=== PATIENT | male | born 1965 | race Caucasian/White ===

== ENCOUNTER 2023-06-30 20:37 | Emergency (ER) | payer OTHER, SELFPAY ==
[2023-06-30 20:42] VITALS: BP 140/86
[2023-06-30 21:04] LABS: % Basophils 0.9 % (0-2); % Eosinophils 0.2 % (0-6); % Immature Granulocytes 0.4 % (0-0.5); % Lymphocytes 27.4 % (20.5-51.1); % Monocytes 11.6 % (1.7-9.3); % Neutrophils 59.5 % (42.2-75.2); Absolute Lymphocytes 1.3 10^3/uL (1.2-3.4); Absolute Monocytes 0.5 10^3/uL (0.1-0.6); Absolute Neutrophils 2.8 10^3/uL (1.4-6.5); Hematocrit 43.4 % (39.0-52.0); Hemoglobin 15.5 g/dL (13.0-18.0); Mean Corp Hgb Conc. 35.7 g/dL (33.0-37.0); Mean Corpuscular Hgb 29.5 pg (27.0-31.0); Mean Corpuscular Volume 82.7 fL (80.0-94.0); Mean Platelet Volume 9.3 fL (7.4-10.4); Nucleated Red Blood Cells % 0 % (-); Platelet Count 107 10^3/uL (130-400); Red Blood Cell Count 5.25 10^6/uL (4.70-6.10); Red Cell Dist. Width 14.6 % (11.5-14.5); White Blood Cell Count 4.7 10^3/uL (4.8-10.8)
[2023-06-30 21:17] LABS: ALT (SGPT) 45 U/L (0-50); AST (SGOT) 84 U/L (17-59); Albumin 4.4 g/dl (3.5-5.0); Alkaline Phosphatase 67 U/L (38-126); Blood Urea Nitrogen 14 mg/dl (9-20); Calcium 7.9 mg/dl (8.4-10.2); Carbon Dioxide 26 mmol/L (22-30); Chloride 100 mmol/L (98-107); Glucose 139 mg/dl (70-99); Lipase 474 U/L (23-300); Potassium 3.4 mmol/L (3.5-5.1); Sodium 139 mmol/L (135-145); Total Bilirubin 0.7 mg/dl (0.2-1.3); Total Protein 7.4 g/dl (6.3-8.2); eGFR > 60.00
[2023-06-30 22:20] LABS: Alcohol 402 mg/dl
[2023-06-30 23:00] VITALS: BP 136/71
[2023-06-30] MEDS: MULTIVITAMIN 1011 ML IV (23:28)
[2023-06-30] MEDS: MULTIVITAMIN 1011 MG IV (23:28)
[2023-06-30 23:58] LABS: Magnesium 1.9 mg/dl (1.6-2.3)
[2023-07-01] MEDS: ATIVAN 1 MG IV (00:39)
--- NOTE | 2023-07-01 01:42 | ED.GENMED ---
History of Present Illness
General
Chief Complaint: Alcohol Problem
Source: patient and family
Time Seen by Provider: 06/30/23 22:24
Travel History
Have you had any contact with someone who has COVID-19?: No
Do you have any symptoms of coronavirus? Fever > 100 degrees, chills, cough, shortness of breath, sore throat, loss of taste or smell, muscle aches, or headache?: No
History of Present Illness
History of Present Illness:
58-year-old male who presents concerned that he has been drinking a lot over the last week. Patient states that he has been drinking vodka. He had been sober for some time. Patient is having a difficult time describing his symptoms but keeps
saying 'my muscles need nutrients'. He is unable to actually qualify symptoms. He specifically denies pain or numbness. No tingling. No motor weakness. No vomiting. Last drink was prior to arrival.
Past History
Past History
ED Past Medical History: Other (Hypothyroidism)
ED Past Surgical History: Other (Ileostomy due to infection located by sepsis)
Social History
Tobacco: Non-smoker
Alcohol: Daily
Drug: None
Living: alone
Phy Exam
Physical Exam
Physical Exam:
CONSTITUTIONAL Patient alert and oriented to person, place and time. Well-appearing. Vital signs reviewed.
HEAD atraumatic, normocephalic.
EYES eyelids normal to inspection, Pupils equally round and reactive to light, Extraocular muscles intact, Conjunctiva normal, Sclera normal.
NECK normal range of motion, Trachea midline, no jugular venous distention.
RESPIRATORY CHEST No respiratory distress noted, Chest expansion equal, Bilateral breath sounds clear.
CARDIOVASCULAR regular and tachycardic, Heart sounds normal.
ABDOMEN abdomen nontender, Bowel sounds normal. No distention.
BACK normal inspection, no obvious deformities
UPPER EXTREMITY range of motion normal, Motor strength normal, no cyanosis, no edema.
LOWER EXTREMITY range of motion normal, Motor strength normal, no cyanosis, no edema.
NEURO Speech normal, No focal motor deficits, Angelic coma scale 15, Memory normal, Cranial Nerves intact to screening exam.
SKIN skin warm, dry, and normal in color.
PSYCHIATRIC patient oriented to person place and time, anxious affect.
Scores
Withdrawal Assessment of Alcohol
Withdrawal Assessment Completed?: Not applicable
Course
Orders/Labs/Results
Orders:
Orders
06/30/23 20:47
Electrocardiogram (*1) Urgent
Reason for Study: Abdominal Pain
06/30/23 20:48
EKG- Treatment ONCE
06/30/23 20:52
Alcohol Urgent
CMP [Comprehensive Metabolic Panel] Urgent
Complete Blood Count/With Diff Urgent
Lipase Urgent
Magnesium Urgent
Comment: ADD ON
06/30/23 21:30
Add On- LAB Urgent
Tests Added?: alcohol
06/30/23 23:00
0.9% Sodium Chloride 1000 ml [Nss] 1,000 ml Mvi, Adult [Multivitamin] 10 ml Thiamine Injection 100 mg IV 200 mls/hr
06/30/23 23:05
Add On- LAB Stat
Tests Added?: Mg
07/01/23 00:34
Lorazepam [Ativan] 1 mg IV NOW STA
07/01/23 01:41
Potassium Chloride 10% Elixir [KCl Elixir] 40 meq PO NOW STA
07/01/23 02:05
Lorazepam [Ativan] 1 mg PO NOW STA
Abnormal Lab Results
06/30/23
20:52
WBC 4.7 L 10^3/uL
(4.8-10.8)
RDW 14.6 H %
(11.5-14.5)
Plt Count 107 L 10^3/uL
(130-400)
Monocytes % 11.6 H %
(1.7-9.3)
Potassium 3.4 L mmol/L
(3.5-5.1)
Glucose 139 H mg/dl
(70-99)
Calcium 7.9 L mg/dl
(8.4-10.2)
AST 84 H U/L
(17-59)
Lipase 474 H U/L
(23-300)
Alcohol, Quantitative 402 H* mg/dl
06/30/23 20:52
06/30/23 20:52
Vital Signs
Initial and Last Documented VS:
Initial Vital Signs
Temp Pulse Resp BP Pulse Ox
98.9 F 104 22 140/86 93
06/30/23 20:42 06/30/23 20:42 06/30/23 20:42 06/30/23 20:42 06/30/23 20:42
Last Documented Vital Signs
Temp Pulse Resp BP Pulse Ox
98.9 F 100 16 136/71 94
07/01/23 00:18 07/01/23 03:00 07/01/23 03:00 06/30/23 23:00 07/01/23 00:15
MDM/Problems Addressed
MDM/Problems Addressed:
Chronic alcoholism, acute alcohol intoxication, hypokalemia
*Pulse Oximetry
Patient hypoxic: no
*Cold Saw Operator Interpretation
Rate: normal
Interpretation: normal
Rhythm: sinus
*Critical Care Note
Total Time (30-74mins, 75-104mins- exclusive of procedures): Not Applicable
Data Reviewed
Source: patient and family
Further Testing Considered But Not Given:
Considered imaging of the abdomen but abdomen soft and benign. Do not suspect acute pancreatitis
Patient Management
Escalation/DeEscalation of care consider admission/obs:
Patient seen by [facility]. pt declines any offerings by [facility]. Hemodynamically stable. Clearly not in withdrawal. Okay for discharge
ED Attending Note
-
Portions of this chart may have been created with voice recognition software.� Occasional wrong word or��sound alike� substitutions may have occurred due to the inherent limitations of voice recognition software.
Discharge Plan
Departure
Patient Disposition: Home (Routine Discharge)
Date of Disposition: 07/01/23
Time of Disposition: 01:53
Patient with high blood pressure during this ER visit?: No
Discharge Problem:
Acute alcohol intoxication, Chronic alcohol abuse, Acute hypokalemia
Instructions: Alcohol Use Disorder (DC), BLOOD PRESSURE
Prescriptions:
New
lorazepam 1 mg tablet
1 mg PO TID PRN (Reason: alcohol withdrawal) Qty: 12 0RF
No Action
levothyroxine 100 mcg Tablet
100 mcg PO DAILY
Activity Restrictions/Additional Instructions:
Please see your doctor in the next 2 to 3 days. Please follow-up with resources given to you by Uziel durbin. Return admitted for intractable vomiting, tremors, worsening symptoms or any other concerns. Please stick to a regular diet and drink plenty
of water for hydration
Interventions
Interventions:
*Risk Screen - Suicide Last Done: 06/30/23 20:42
*General Assessment Last Done: 06/30/23 22:46
*Neglect/Abuse Screening Last Done: 06/30/23 20:42
ED- Fall Risk Assessment Last Done: 06/30/23 22:45
*ED COVID-19 Vaccine History Last Done: 06/30/23 22:52
*Nursing Disposition Last Done: 07/01/23 03:39
ED- Neurological Assessment Last Done: 06/30/23 22:45
ED-Psychological Assessment Last Done: 06/30/23 22:45
Discharge Date and Time
Discharge Date/Time: 07/01/23 03:40
[2023-07-01] MEDS: KCL ELIXIR 40 MEQ PO (01:55)
[2023-07-01] MEDS: ATIVAN 1 MG PO (02:11)
== END 2023-07-01 03:40 | disposition home or self-care (01) ==
LOC: EMR 20:37
PROVIDERS: Emergency Medicine; EMERGENCY PHYSICIAN Emergency Medicine
DX: F10.129 Alcohol abuse with intoxication, unspecified (principal); E87.6 Hypokalemia
CPT/HCPCS: 99284; 96365; 96366 ×3; 96375; 80053; 82077; 83690; 83735; 85025; 93005

== ENCOUNTER 2024-02-29 18:28 | Emergency (ER) | payer OTHER, SELFPAY ==
[2024-02-29 18:30] VITALS: BMI 33.1
[2024-02-29 18:36] VITALS: BP 140/92
[2024-02-29 18:38] VITALS: BP 140/92
[2024-02-29 18:41] LABS: Glucose - Point of Care 139 mg/dl (70-99)
[2024-02-29 18:49] LABS: % Basophils 0.9 % (0-2); % Eosinophils 1.8 % (0-6); % Immature Granulocytes 0.3 % (0-0.5); % Lymphocytes 30.7 % (20.5-51.1); % Monocytes 7.4 % (1.7-9.3); % Neutrophils 58.9 % (42.2-75.2); Absolute Basophils 0.1 10^3/uL (0-0.2); Absolute Eosinophils 0.1 10^3/uL (0-0.7); Absolute Monocytes 0.5 10^3/uL (0.1-0.6); Absolute Neutrophils 3.9 10^3/uL (1.4-6.5); Hematocrit 44.7 % (39.0-52.0); Hemoglobin 15.6 g/dL (13.0-18.0); Mean Corp Hgb Conc. 34.9 g/dL (33.0-37.0); Mean Corpuscular Hgb 28.7 pg (27.0-31.0); Mean Corpuscular Volume 82.2 fL (80.0-94.0); Nucleated Red Blood Cells % 0 % (-); Platelet Count 233 10^3/uL (130-400); Red Blood Cell Count 5.44 10^6/uL (4.70-6.10); Red Cell Dist. Width 14.9 % (11.5-14.5); White Blood Cell Count 6.7 10^3/uL (4.8-10.8)
[2024-02-29 19:03] LABS: ALT (SGPT) 38 U/L (0-50); AST (SGOT) 57 U/L (17-59); Albumin 4.8 g/dl (3.5-5.0); Alkaline Phosphatase 55 U/L (38-126); Blood Urea Nitrogen 16 mg/dl (9-20); Calcium 9.6 mg/dl (8.4-10.2); Carbon Dioxide 20 mmol/L (22-30); Chloride 108 mmol/L (98-107); Estimated Creatinine Clearance 86 ml/min; Glucose 149 mg/dl (70-99); Potassium 3.9 mmol/L (3.5-5.1); Sodium 147 mmol/L (135-145); Total Bilirubin 0.4 mg/dl (0.2-1.3); Total Protein 7.9 g/dl (6.3-8.2); eGFR > 60.00
[2024-02-29 19:12] LABS: Alcohol 356 mg/dl
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
[2024-02-29 19:40] VITALS: BP 131/84
[2024-02-29] MEDS: NSS 500 IV (20:56)
== END 2024-02-29 23:53 | disposition home or self-care (01) ==
LOC: EMR 18:28
PROVIDERS: Emergency Medicine; EMERGENCY PHYSICIAN Emergency Medicine
DX: F10.129 Alcohol abuse with intoxication, unspecified (principal); Y90.8 Blood alcohol level of 240 mg/100 ml or more; R10.9 Unspecified abdominal pain; V89.2XXA Person injured in unspecified motor-vehicle accident, traffic, initial encounter; E03.9 Hypothyroidism, unspecified; Z93.2 Ileostomy status
CPT/HCPCS: 96360; 99285; 70450; 72072; 72125; 74177; 80053; 82077; 82962; 85025; 93005; Q9967

== ENCOUNTER 2024-03-09 22:18 | Emergency (ER) | payer OTHER, SELFPAY ==
[2024-03-09 22:23] VITALS: BMI 32.4
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
[2024-03-09 22:37] VITALS: BP 145/91
[2024-03-09 22:50] LABS: % Basophils 0.4 % (0-2); % Eosinophils 2.2 % (0-6); % Immature Granulocytes 0.4 % (0-0.5); % Lymphocytes 29.1 % (20.5-51.1); % Neutrophils 59.9 % (42.2-75.2); Absolute Eosinophils 0.1 10^3/uL (0-0.7); Absolute Lymphocytes 1.5 10^3/uL (1.2-3.4); Absolute Monocytes 0.4 10^3/uL (0.1-0.6); Hematocrit 39.7 % (39.0-52.0); Hemoglobin 14.1 g/dL (13.0-18.0); Mean Corp Hgb Conc. 35.5 g/dL (33.0-37.0); Mean Corpuscular Hgb 28.8 pg (27.0-31.0); Mean Corpuscular Volume 81.2 fL (80.0-94.0); Mean Platelet Volume 10.7 fL (7.4-10.4); Nucleated Red Blood Cells % 0 % (-); Platelet Count 119 10^3/uL (130-400); Red Blood Cell Count 4.89 10^6/uL (4.70-6.10); Red Cell Dist. Width 15.4 % (11.5-14.5)
[2024-03-09 23:00] LABS: ALT (SGPT) 83 U/L (0-50); AST (SGOT) 138 U/L (17-59); Albumin 4.5 g/dl (3.5-5.0); Alkaline Phosphatase 63 U/L (38-126); Blood Urea Nitrogen 9 mg/dl (9-20); Calcium 9.8 mg/dl (8.4-10.2); Carbon Dioxide 23 mmol/L (22-30); Chloride 107 mmol/L (98-107); Estimated Creatinine Clearance 95 ml/min; Glucose 93 mg/dl (70-99); Potassium 3.9 mmol/L (3.5-5.1); Sodium 147 mmol/L (135-145); Total Bilirubin 0.4 mg/dl (0.2-1.3); Total Protein 7.4 g/dl (6.3-8.2); eGFR > 60.00
[2024-03-09 23:01] LABS: Ammonia 11 umol/L (9-30)
[2024-03-09 23:04] VITALS: BP 139/80
[2024-03-09 23:10] LABS: Alcohol 393 mg/dl
[2024-03-10] VITALS: BP 141/84
[2024-03-10 00:17] VITALS: BP 128/83
[2024-03-10 01:17] VITALS: BP 132/91
[2024-03-10 01:54] VITALS: BP 124/82
[2024-03-10 02:00] VITALS: BP 122/88
[2024-03-10 04:00] VITALS: BP 111/73
== END 2024-03-10 06:36 | disposition home or self-care (01) ==
LOC: EMR 22:18
PROVIDERS: EMERGENCY PHYSICIAN Student in an Organized Health Care Education/Training Program; FAMILY PHYSICIAN Student in an Organized Health Care Education/Training Program
DX: F10.129 Alcohol abuse with intoxication, unspecified (principal); Y90.8 Blood alcohol level of 240 mg/100 ml or more; E03.9 Hypothyroidism, unspecified; K74.60 Unspecified cirrhosis of liver
CPT/HCPCS: 99284; 70450; 80053; 82077; 82140; 85025

== ENCOUNTER 2024-03-24 23:05 | Inpatient (IN) | payer OTHER, SELFPAY ==
[2024-03-24 18:38] VITALS: BP 133/67
[2024-03-24] MEDS: ATIVAN 2 MG IV ×2 (18:47→22:21)
[2024-03-24] MEDS: NSS 1000 IV (18:48)
[2024-03-24 19:00] VITALS: BP 117/82
[2024-03-24 19:01] LABS: % Basophils 0.5 % (0-2); % Immature Granulocytes 0.5 % (0-0.5); % Lymphocytes 11.3 % (20.5-51.1); % Monocytes 10.1 % (1.7-9.3); % Neutrophils 77.6 % (42.2-75.2); Absolute Lymphocytes 0.5 10^3/uL (1.2-3.4); Absolute Monocytes 0.4 10^3/uL (0.1-0.6); Absolute Neutrophils 3.1 10^3/uL (1.4-6.5); Hematocrit 26.9 % (39.0-52.0); Hemoglobin 9.5 g/dL (13.0-18.0); Mean Corp Hgb Conc. 35.3 g/dL (33.0-37.0); Mean Corpuscular Hgb 29.3 pg (27.0-31.0); Mean Platelet Volume 9.6 fL (7.4-10.4); Nucleated Red Blood Cells % 0 % (-); Platelet Count 134 10^3/uL (130-400); Red Blood Cell Count 3.24 10^6/uL (4.70-6.10); Red Cell Dist. Width 16.6 % (11.5-14.5)
--- NOTE | 2024-03-24 19:10 | ED.GENMED ---
History of Present Illness
General
Chief Complaint: Alcohol Problem
Source: patient
Time Seen by Provider: 03/24/24 18:49
History of Present Illness
History of Present Illness:
58-year-old male presents to the emergency room stating he needs alcohol rehab. Patient has a history of alcohol use disorder. He had been sober up until about 2 weeks ago when he went on a binge. He is drinking about 2 to 3 pints of vodka a day.
He realized he is needed to stop and has not had a drink for the past 24 hours or so. He was quite tremulous in triage and was given 2 mg of Ativan with some improvement. He feels mildly tremulous now. Patient last went to rehab about a year ago
in [place]. He does not take any prescription medications right now other than levothyroxine.
Past History
Past History
ED Past Medical History: Hypothyroidism and Other (Bowel obstrucation, Cirrhosis of the liver, Alcohol abuse)
ED Past Surgical History: Other (Ileostomy due to infection located by sepsis, Hernia X 2)
Social History
Tobacco: Non-smoker
Alcohol: Daily
Drug: None
Personal:
Living: alone
Phy Exam
Physical Exam
Physical Exam:
General: Awake, Alert, Oriented X3. Mildly tremulous
Vitals: Tachycardia
Head: Atraumatic
Eyes: Pupils equal, EOMI
Throat: Airway intact, no exudates
Neck: Trachea midline
Lungs: Clear and equal b/l
Heart: Regular rate, no murmurs
Abd: Soft, ileostomy with stool, nontender, No pulsatile mass
Neuro: Nonfocal
Skin: Warm, dry, no rash
Extremities: pulses equal b/l, no edema
Scores
Withdrawal Assessment of Alcohol
Withdrawal Assessment Completed?: Yes
Nausea and Vomiting: No nausea and no vomiting
Tactile Disturbances: None
Tremor: Moderate, with patient's arms extended
Auditory Disturbances: Not present
Paroxysmal Sweats: No sweat visible
Visual Disturbances: Not present
Anxiety: Mild anxiety
Headache, Fullness in Head: Not present
Agitation: Moderately fidgety and restless
Orientation and clouding of sensorium: Oriented and can do serial additions
Total CIWA Score: 9
Alcohol Withdrawal Medication Recommendation: Equal to MSAS Score 5-7. Lorazepam 1mg IV or PO NOW & re-assess q2hrs
Course
Orders/Labs/Results
Orders:
Orders
03/24/24 18:37
ECG [Electrocardiogram (*1)] Urgent
Reason for Study: Other
Other Reason for Exam: withdrawl
EKG- Treatment ONCE
03/24/24 18:45
Lorazepam [Ativan] 2 mg .ROUTE .STK-MED ONE
03/24/24 18:47
Lorazepam [Ativan] 2 mg IV NOW STA
03/24/24 18:48
0.9% Sodium Chloride 1000 ml [Nss] 1,000 ml IV BOLUS
03/24/24 18:50
Complete Blood Count/With Diff Urgent
03/24/24 19:09
Lorazepam [Ativan] 1 mg IV NOW STA
03/24/24 19:10
Alcohol Urgent
Comprehensive Metabolic Panel Urgent
03/24/24 20:09
Potassium Chloride [KCl] 40 meq PO NOW STA
03/24/24 22:06
Lorazepam [Ativan] 2 mg IV NOW STA
03/24/24 22:19
Hemetest Stools As Directed
03/24/24 22:44
INR [Prothrombin Time] Routine
03/24/24 22:47
Admit/Transfer Patient As Directed
Co-Sign Provider:
Level of Care: Inpatient admission
Assign to:: Telemetry
Physician / Group: Roberth Mancini
Diagnosis: ETOH withdraw
Reason for Telemetry: Other
Other Reason for Telemetry: ETOH withdraw
Date to Stop Telemetry: 03/26/24
Time to Stop Telemetry: 11:00
Reason for Hospitalization: ETOH withdraw
Expected length of stay greater than two midnights?: Yes
ELOS- Estimated Length of Stay in days: 3
I certify the patient meets the requirements for IP care: Yes
PRN Pain Medication Management As Directed
May give lesser potent ordered pain med per pt: Yes
preference::
Protocol:: Medication orders for pain may be administered in a
manner that supports deferring to patient preference
when the pt is:
- Requesting an ordered lesser potent pain medication.
Least to most potent pain medications are defined
as: acetaminophen < NSAID < tramadol < opioids
(morphine, oxycodone, hydromorphone).
- Requesting a lesser dose of the same medication IF
ORDERED.
- Requesting a less intrusive route of administration
if both routes are prescribed by the provider (PO <
IV).
03/24/24 22:48
Code Status As Directed
Resuscitation Status: Full Code
03/25/24 00:23
0.9% Sodium Chloride [Nss (Preservative Free)] See Protocol IV PRN PRN
FOLic ACID [Folvite] 1 mg 0.9% Sodium Chloride 50 ml [Nss] 50 ml IV DAILYPRN
Lorazepam [Ativan] 1 mg IV Q1HPRN PRN
Lorazepam [Ativan] 1 mg PO Q2HPRN PRN
Lorazepam [Ativan] 2 mg IV Q1HPRN PRN
03/25/24 00:23
Case Management Consult Once
Case Management Consult: Other
Comment: Substance abuse counseling
Consult Notification Routine
Specialty to Notify: Psychiatry
Date consulting provider notified: 03/25/24
Time consulting provider notified: 06:57
Notified:: Provider
DIETARY CONSULT Routine
Reason for Consult: Nutrition support, possible refeeding guidelines
Activity As Directed
Activity Level: Out of Bed- Ad Christiane
MSAS SCORE As Directed
MSAS Score 0-4: Repeat MSAS every 2 hours until 0-4 for three consecutive assessments, then every 4 hours x 48
hours.
MSAS Score 5-7: For MILD withdrawl symptoms. Repeat MSAS and RASS every 2 hours
MSAS Score 8-11: For MODERATE withdrawal symptoms. Repeat MSAS and RASS every 1 hour. Consider ICU or IMU
level of care.
MSAS Score > 11: For SEVERE withdrawal symptoms. Repeat MSAS and RASS every 1 hour. Notify provider, consider
ICU level of care.
MSAS Additional Instructions: If no improvement or no decrease in score from severe to moderate within 12
hours, consult psychiatry
MSAS Notify Provider: Notify provider if patient requires more than 10 mg of Lorazepam in eight hour period.
Sequential Compression Device [Pneumatic Compression Sleeves] As Directed
Type: Knee high
Vital Signs As Directed
Frequency: Post-operative guidelines
DX Deep Vein Thrombosis Video Routine
03/25/24 02:57
Alcohol Urgent
B-Hydroxybutyrate Urgent
GGTP Urgent
Magnesium Urgent
PTT Urgent
Phosphorus Urgent
03/25/24 05:00
Urinalysis Routine
Date Specimen was Collected: 03/25/24
Time Specimen was Collected: 04:58
Urine Drug Abuse Screen Routine
Date Specimen was Collected: 03/25/24
Time Specimen was Collected: 04:58
03/25/24 Breakfast
Regular
At Your Request: Full Participation
Does patient need a safe tray?: No
03/25/24 06:46
Complete Blood Count/With Diff IN AM
Comprehensive Metabolic Panel IN AM
TSH IN AM
03/25/24 08:00
FOLic ACID [Folvite] 1 mg PO DAILY
Pantoprazole [Protonix] 40 mg PO DAILY
Thiamine Injection 200 mg IV Q12
03/26/24 06:00
Complete Blood Count/With Diff IN AM
Comprehensive Metabolic Panel IN AM
03/26/24 11:00
DC Protocol for Telemetry ONCE
03/27/24 06:00
Complete Blood Count/With Diff IN AM
Comprehensive Metabolic Panel IN AM
03/28/24 08:00
Thiamine HCl [Vitamin B1] 100 mg PO BID
Abnormal Lab Results
03/24/24 03/24/24
18:50 19:10
WBC 4.0 L 10^3/uL
(4.8-10.8)
RBC 3.24 L 10^6/uL
(4.70-6.10)
Hgb 9.5 L g/dL
(13.0-18.0)
Hct 26.9 L %
(39.0-52.0)
RDW 16.6 H %
(11.5-14.5)
Absolute Lymphs (auto) 0.5 L 10^3/uL
(1.2-3.4)
Neutrophils % 77.6 H %
(42.2-75.2)
Lymphocytes % 11.3 L %
(20.5-51.1)
Monocytes % 10.1 H %
(1.7-9.3)
Potassium 3.3 L mmol/L
(3.5-5.1)
Chloride 97 L mmol/L
(98-107)
Carbon Dioxide 19 L mmol/L
(22-30)
Glucose 111 H mg/dl
(70-99)
AST 80 H U/L
(17-59)
ALT 52 H U/L
(0-50)
03/24/24 18:50
03/24/24 19:10
Vital Signs
Initial and Last Documented VS:
Initial Vital Signs
Temp Pulse Resp BP Pulse Ox
98.2 F 114 20 133/67 94
03/24/24 18:38 03/24/24 18:38 03/24/24 18:38 03/24/24 18:38 03/24/24 18:38
Last Documented Vital Signs
Temp Pulse Resp BP Pulse Ox
98.4 F 109 20 143/86 98
03/25/24 11:53 03/25/24 11:53 03/25/24 11:53 03/25/24 11:53 03/25/24 11:53
MDM/Problems Addressed
Differential Diagnosis Includes:
Alcohol use disorder, alcohol withdrawal, DTs
MDM/Problems Addressed:
Patient presents requesting help with alcohol addiction. Labs reveal mild normocytic anemia, normal platelet count, mild hypokalemia, mild elevation of LFTs. Patient also has irritation of the skin under his ileostomy likely from neglect while
intoxicated. Patient was quite tremulous on arrival. He improved with benzos but his tremor was quite significant when attempting to do things like unbutton his pants and walk to the bathroom. I do not believe he is safe for discharge and the
patient is refusing inpatient rehab. I have no choice but to hospitalize him to get him through the next couple days of his withdrawal.
*Pulse Oximetry
Patient hypoxic: no
*Broom Man Interpretation
Rate: tachycardiac
Interpretation: abnormal
Heart Rate: 110
Rhythm: sinus tachycardia
*Critical Care Note
Total Time (30-74mins, 75-104mins- exclusive of procedures): Not Applicable
ED Attending Note
-
Portions of this chart may have been created with voice recognition software.� Occasional wrong word or��sound alike� substitutions may have occurred due to the inherent limitations of voice recognition software.
Discharge Plan
Departure
Patient Disposition: Admit
Date of Disposition: 03/24/24
Time of Disposition: 22:53
Presentation/result/management discussed w/ accepting MD/DO: Hospitalist
Condition: Fair
Discharge Problem:
Alcohol withdrawal
Interventions
Interventions:
*Risk Screen - Suicide Last Done: 03/25/24 00:27
*General Assessment Last Done: 03/24/24 18:38
*Neglect/Abuse Screening Last Done: 03/24/24 23:25
ED- Fall Risk Assessment Last Done: 03/24/24 19:05
*ED COVID-19 Vaccine History Last Done: 03/25/24 00:27
*Nursing Disposition Last Done: 03/25/24 00:07
ED- Neurological Assessment Last Done: 03/24/24 19:05
ED-Psychological Assessment Last Done: 03/24/24 19:05
Discharge Date and Time
Discharge Date/Time: 03/25/24 00:07
[2024-03-24] MEDS: ATIVAN 1 MG IV (19:30)
[2024-03-24 19:35] LABS: ALT (SGPT) 52 U/L (0-50); AST (SGOT) 80 U/L (17-59); Albumin 4.3 g/dl (3.5-5.0); Alkaline Phosphatase 90 U/L (38-126); Blood Urea Nitrogen 15 mg/dl (9-20); Calcium 8.4 mg/dl (8.4-10.2); Carbon Dioxide 19 mmol/L (22-30); Chloride 97 mmol/L (98-107); Glucose 111 mg/dl (70-99); Potassium 3.3 mmol/L (3.5-5.1); Sodium 135 mmol/L (135-145); Total Bilirubin 0.9 mg/dl (0.2-1.3); Total Protein 6.7 g/dl (6.3-8.2); eGFR > 60.00
[2024-03-24 20:00] VITALS: BP 142/83
[2024-03-24 20:14] LABS: Alcohol 18 mg/dl
[2024-03-24] MEDS: KCL 40 MEQ PO (20:59)
[2024-03-24 21:00] VITALS: BP 120/64
--- NOTE | 2024-03-24 22:18 | HPS.HSE ---
Family Physician
-
Family Physician: Shay Strauss MD, Resident
Chief Complaint
-
ETOH withdraw symptoms
History of Present Illness
Patient is a 58-year-old male with past medical history significant for Fox's thyroiditis, cirrhosis of liver, alcohol dependency, esophageal varices with bleeding, sleep apnea and anxiety disorder who presented to [place] ED for evaluation
and treatment for alcohol withdraw. Patient reports recent outpatient rehab at [place] following a 5 day detox approximately 4 weeks ago. He reports last drink was approximately 48-hours ago. Patient with tremors at assessment s/p 2mg Ativan in
ED. Patient states he is currently only taking his prescribed levothyroxine. Patient denies any other withdraw symptoms besides tremors at this time. No hallucinations. No seizures. Patient states he has not had seizures with previous withdraw.
Medical History
Past Medical History
Past Medical History: Reports Other
Additional Past Medical History:
Fox's thyroiditis
cirrhosis of liver
alcohol dependency
esophageal varices with bleeding
sleep apnea
anxiety disorder
Hx bowel obstruction
Past Surgical History: Reports Other
Additional Past Surgical History:
ileostomy
hernia x2
Social History
Tobacco: Non-smoker
Alcohol: Daily (2-3 pints vadka per day)
Drug: None
Employment: Employed (chiropractor)
Family History
Family History: Not pertinent
Allergies / Home Medications
Allergies reflects when Allergies were last updated in [facility].
Home Medications with original date entered in [facility]
Allergy/Medication List:
Allergies
Allergy/AdvReac Type Severity Reaction Status Date / Time
No Known Allergies Allergy Verified 03/24/24 18:38
Home Medications
levothyroxine 100 mcg tablet 100 mcg PO DAILY 07/01/23
cyclobenzaprine 10 mg tablet 10 mg PO HS 02/29/24
hydroxyzine HCl 50 mg tablet 50 mg PO TIDPRN PRN anixety 02/29/24
lorazepam 1 mg tablet 0.5 mg PO HSPRN PRN anxiety 02/29/24
semaglutide 0.25 mg or 0.5 mg (2 mg/3 mL) subcutaneous pen injector (Ozempic) 0.25 mg SC CASIANO 02/29/24
Review of Systems
-
History Source: Patient
Constitutional: Reports No Symptoms
EENT: Reports No Symptoms
Respiratory: Reports No Symptoms
Cardiac: Reports No Symptoms
Abdomen/GI: Reports No Symptoms
: Reports No Symptoms
Musculoskeletal: Reports No Symptoms
Skin: Reports Other (excoriation around ileostomy)
Neurological: Reports Other (tremors)
Endocrine: Reports No Symptoms
Hematologic/Lymphatic: Reports No Symptoms
Psych: Reports Anxiety
Physical Exam
Vital Signs
Vital Signs
Temp Pulse Resp BP Pulse Ox
98.2 F 105 20 120/64 99
03/24/24 18:38 03/24/24 19:00 03/24/24 18:38 03/24/24 21:00 03/24/24 19:31
Physical Exam
General: Well Developed, Well Nourished, No Apparent Distress and Conversant
HEENT: NormoCephalic, Moist mucous membranes, Atraumatic, [place] Conjunctivae, Nose Appears Normal and Ears Appear Normal
Respiratory: Clear and Non Labored Respirations
Cardiac: S1/S2, Regular Rhythm and Tachycardia; No Murmur, Rub or Gallop
Breast: Deferred by me
GI: Soft, Non Tender, Non Distended, Normal Bowel Sounds and Ostomy (excoriation around ileostomy); No Organomegaly
Rectal: Deferred by Provider
Genito-urinary: Deferred by me
Musculoskeletal: No Clubbing, No Cyanosis and No Edema
Skin: Warm, Rash (excoriation around ileostomy) and IV/Catheter Site
Neuro: Awake, Alert and AO x 3
Psych: Calm
Laboratory Results
-
03/24/24 18:50
03/24/24 19:10
Laboratory Results
Total Bilirubin 0.9 mg/dl (0.2-1.3) 03/24/24 19:10
AST 80 U/L (17-59) H 03/24/24 19:10
ALT 52 U/L (0-50) H 03/24/24 19:10
Alkaline Phosphatase 90 U/L (38-126) 03/24/24 19:10
Data Reviewed
-
Lab Data: Labs Reviewed by me (ETOH 18, Hgb 9.5, Hct 26.9, K+ 3.3, AST 80, ALT 52)
Impression/Plan
-
IMPRESSION/PLAN:
#Alcohol withdraw
#alcohol dependency
#cirrhosis of liver
#hx esophageal varices with bleeding
ETOH level 18, last drink reported
drinking 1-3 pints vodka per day for at least 2 weeks
Previous rehab for ETOH
- Admit to Telemetry
- MSAS protocol with lorazepam
- Psych consult
- trend LFTs
- INR pending
- cessation of ETOH
#Anemia
Hbg 9.5, 2 weeks ago was 14.1
- Hematest stool
- PO PPI daily
- INR pending
#Hx bowel obstruction with ileostomy
ileostomy with excoriation
- wound care consult
#Fox's thyroiditis
#hypothyroidism
- continue levothyroxine
#anxiety disorder
- continue gabapentin
- hold hydroxyzine and lorazepam
Code Status: Full Code
DVT Prophylaxis: SCDs
--- NOTE | 2024-03-24 22:29 | W.PN.UPDATE ---
Addendum entered and electronically signed by Roberth Mancini MD 03/24/24 22:55:
Normocytic interval new anemia ( Hgb dropped from 14.1 to 9.5 over 2 weeks )
Denied change in color of the stool.
HX Cirrhosis
Nl Platelet
- wait INR
- check stool for HoB
- PO PPI daily
Original Note:
Update Note
Progress Note Update
This note serves as an addendum to the H&P by waste specialist Carina Caldwell
HPI:
58M HX ETOH use disorder, seen at ER
- stating he needs alcohol rehab.
- had been sober up until about 2 weeks
- Recently at [facility] detox for 5 days 4weeks ago
- then binge ETOH use 2 to 3 pints of vodka a day.
- realized he is needed to stop and has not had a drink for the past 24 hours or so.
- quite tremulous in triage and was given 2 mg of Ativan with some improvement.
- He feels mildly tremulous now.
- Patient last went to rehab about a year ago in [place].
PHX: Cirrhosis of the liver, Alcohol abuse Hypothyroidism, Bowel obstruction, Ileostomy
Vitals: Tachycardia
General: Awake, Alert, Oriented X3. Mildly tremulous of outstretched hands
HEENT: Atraumatic, Pupils equal, EOMI
Neck: Trachea midline
Lungs: CTA
CVS: Regular rate, no murmurs
Abd: Soft, ileostomy with stool, nontender
Neuro: Nonfocal
Skin: Warm, dry, no rash
Extremities: pulses equal b/l, no edema
Data
03/09/24 03/24/24 03/24/24
22:35 18:50 19:10
WBC 5.0 4.0 L
Hgb 14.1 9.5 L
MCV 83.0
Plt Count 119 L 134
Sodium 147 H 135
Potassium 3.9 3.3 L
eGFR > 60.00 > 60.00
AST 138 H 80 H
ALT 83 H 52 H
ETOH level 18mg/dl
NO PRIOR hospitalist admission:
ASSESSMENT & PLAN
Pending Rx reconciliation
Acute ETOH WDS S/p total 5 mg of Ativan: Still tachycardic but less tremulous
At risk for fulminant ETOH WDS:
Day 2 of ETOH cessation: Last ETOH was 48hrs ago as of Friday03/22/24
No prior HX ETOH WD Sz
Suspect Anxiety disorder
Recently at [facility] detox for 5 days 4weeks ago
- MSAS protocol: Hi risk
- resume Gabapentin 300 mg tid
- Psych consult
Mild ETOH hepatitis with reversed AST to ALT ratio
HX Cirrhosis
Albumin 4.3
Normal platelet count
- cessation of ETOH
- Trend LFTs
- check INR
Hypothyroid
- cont. CARGO CHECKER
Ileostomy s/p BW resection for bowel obstruction
DVT Px: SCD
Full code
Ip TLM
[2024-03-24 22:50] VITALS: BMI 31.8
[2024-03-24 23:01] LABS: INR 1.05; PT 14.2 Sec (11.4-14.6)
[2024-03-25] VITALS (7 sets, daily range): BP systolic 117–167; BP diastolic 70–100; BMI 27.7
[2024-03-25 03:27] LABS: APTT 30.9 Sec (23.4-35.0)
[2024-03-25 03:59] LABS: GGTP 149 U/L (15-73); Magnesium 1.4 mg/dl (1.6-2.3); Phosphorus 2.6 mg/dl (2.5-4.5)
[2024-03-25 04:14] LABS: Alcohol None Detected
--- NOTE | 2024-03-25 05:50 | PTCARENOTE ---
Pt received at approximately 0030 on 03/25. Pt tachycardiac upon arrival. AAOx3. No agitation or fever noted. Pt able to stand and pivot from stretcher to bed with some difficulty and tremors to b/l LE. No c/o pain/ discomfort. Pt oriented to room
and able to make needs known.
[2024-03-25 06:09] LABS: Urine Albumin Trace (Neg - Trace); Urine Bilirubin Negative (Negative); Urine Character Clear (Clear); Urine Color Yellow; Urine Glucose Negative (Negative); Urine Ketone 1+ (Negative); Urine Leukocyte Trace (Negative); Urine Nitrite Negative (Negative); Urine Occult Blood Negative (Negative); Urine Urobilinogen Negative (Neg - 1+)
[2024-03-25 06:39] LABS: Amphetamines Negative (Negative); Barbiturates Positive (Negative); Benzodiazepines Positive (Negative); Buprenorphine Negative (Negative); Cocaine Negative (Negative); Marijuana Negative (Negative); Methadone Negative (Negative); Methamphetamines Negative (Negative); Opiates Negative (Negative); Phencyclidine Negative (Negative); Tricyclic Antidepressants Negative (Negative)
[2024-03-25 06:41] LABS: Urine Mucus Many
[2024-03-25 06:42] LABS: Urine Amorphous Seen; Urine Bacteria Many (Negative); Urine Squamous Cell 16-20 /LPF (Few)
[2024-03-25 06:43] LABS: Urine Red Blood Cell 0-2 /HPF (0-2)
[2024-03-25 06:52] LABS: Fentanyl, Urine Negative (Negative)
[2024-03-25 07:23] LABS: % Basophils 0.4 % (0-2); % Eosinophils 1.6 % (0-6); % Immature Granulocytes 1.6 % (0-0.5); % Lymphocytes 20.6 % (20.5-51.1); % Monocytes 10.3 % (1.7-9.3); % Neutrophils 65.5 % (42.2-75.2); Absolute Lymphocytes 0.5 10^3/uL (1.2-3.4); Absolute Monocytes 0.3 10^3/uL (0.1-0.6); Absolute Neutrophils 1.7 10^3/uL (1.4-6.5); Hematocrit 26.9 % (39.0-52.0); Hemoglobin 9.2 g/dL (13.0-18.0); Mean Corp Hgb Conc. 34.2 g/dL (33.0-37.0); Mean Corpuscular Hgb 28.8 pg (27.0-31.0); Mean Corpuscular Volume 84.3 fL (80.0-94.0); Mean Platelet Volume 9.5 fL (7.4-10.4); Nucleated Red Blood Cells % 0 % (-); Platelet Count 111 10^3/uL (130-400); Red Blood Cell Count 3.19 10^6/uL (4.70-6.10); Red Cell Dist. Width 16.6 % (11.5-14.5); White Blood Cell Count 2.5 10^3/uL (4.8-10.8)
[2024-03-25 07:28] LABS: AST (SGOT) 77 U/L (17-59); Albumin 3.9 g/dl (3.5-5.0); Alkaline Phosphatase 83 U/L (38-126); Blood Urea Nitrogen 15 mg/dl (9-20); Calcium 8.3 mg/dl (8.4-10.2); Carbon Dioxide 24 mmol/L (22-30); Chloride 102 mmol/L (98-107); Estimated Creatinine Clearance 104 ml/min; Glucose 101 mg/dl (70-99); Potassium 3.3 mmol/L (3.5-5.1); Sodium 138 mmol/L (135-145); Total Protein 6.3 g/dl (6.3-8.2); eGFR > 60.00
[2024-03-25 07:38] LABS: ALT (SGPT) 51 U/L (0-50)
[2024-03-25] MEDS: ATIVAN 1 MG PO ×3 (07:38→20:17)
[2024-03-25] MEDS: PROTONIX 40 MG PO ×2 (08:04→20:18)
[2024-03-25] MEDS: THIAMINE INJECTION 200 MG IV ×2 (08:04→20:18)
[2024-03-25] MEDS: FOLVITE 1 MG PO (08:04)
[2024-03-25] MEDS: FLUSH (NSS) 1 FLUSH IV (08:05)
[2024-03-25 09:12] LABS: Magnesium 1.3 mg/dl (1.6-2.3)
[2024-03-25 09:30] LABS: Free T4 0.51 ng/dl (0.78-2.19)
[2024-03-25] MEDS: MAGNESIUM SULFATE 100 IV (09:33)
--- NOTE | 2024-03-25 09:48 | CS.PSYCHR ---
Consult Summary - Psychiatry
-
Chart reviewed. Psychiatry consult for severe alcohol use disorder with withdrawal. 58 yo male admitted 03/24/2024 in alcohol withdrawal. Last drink was 48 hours prior to admission. Patient states he can binge drink 3 pints of vodka a day. He was in
a 5 day detox followed by outpatient rehab at [place] about a month ago. He relapsed soon thereafter. Reports several years of sobriety through AA. Started drinking again after significant medical issues in 2022 as noted below.
MSE- good eye contact. no visible tremor at this time. fluent speech. logical and goal directed. Anxious mood. Denies SI/HI/AVH. no delusions. fully oriented
TSH 23.10
UDS positive for meagan, benzos
PMH- Hashimotos, cirrhosis, esophageal varices, sleep apnea, ruptured ileum with extensive complicated hospital stay in [place] 2022, has ileostomy
Past psych- anxiety prescribed hydroxyzine 50mg TID PRN, ativan 0.5mg HS PRN in the past
D&A- severe alcohol use disorder as noted above; denies drug history
Family hx- denies family D&A history
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 was living in [place] but now with parents here
A/P- 58 yo male with severe alcohol use disorder and current withdrawal. continue MSAS protocol. Seen by [facility]. Plan when medically stable is for sober living house, outpatient D&A treatment program, and AA. He would benefit from an inpatient D&A
rehab program but does not want that level of care at this time. Psychiatry will sign off. please contact team with questions or concerns.
--- NOTE | 2024-03-25 12:06 | CM ---
Patient seen bedside, CM received consult for [facility]. Patient reports he met with someone yesterday, is interested in sober living, outpatient resources, and AA. Patient reports he has been to inpatient treatment facilities in the past in [place]
and [place]. Patient denies VN or SNF, reports acute rehab in [place]. Patient currently living with mother and father in a multiple story home, two steps to enter. Patient PCP Dr. Strauss, pharmacy [facility], confirms prescription
coverage. Patient denies insecurities at home. CM placed call to [facility] ([facility]), will come see patient tomorrow to discuss options for patient upon discharge. Per [facility], no sober living facility will accept patient until patient detox. CM will
continue to follow for all discharge planning needs.
Plan; [facility] assisting with outpatient/sober living options.
[2024-03-25] MEDS: ATIVAN 0.5 MG PO ×2 (12:30→17:22)
--- NOTE | 2024-03-25 14:13 | W.PN.HOSP.TC ---
Addendum entered and electronically signed by Feroz Hsieh MD 03/25/24 20:06:
Attending Addendum-
I saw and evaluated the patient. I reviewed the resident�s note and agree with findings and plan as documented in the resident�s note. Sub: visibly shaking. easily distractible with cessation of tremors. complains of pain in back. Full 12 point ROS
reviewed and negative except as documented Exam: Vitals reviewed in chart GEN-mild distress heart RRR Lungs clear abd ostomy with dark stool LE no edema Neuro forced tremors
Plan:
#Etoh Withdrawal/ AUD
-drinking 1-3 pints vodka per day for at least 2 weeks
-recent detox x 5 days at [facility]. relapsed afterwards
- MSAS protocol with lorazepam
- start phenobarb taper
- trend LFTs
- high risk DT's
- advised cessation of ETOH
#Anemia
- 14.1->9.5in 2 weeks
- heme pos in ostomy
- start octreotide
- BID PPI
- c/s GI
- cirrhosis of liver
- MELD Na-8
- daily CMP and PT/INR
- start rocephin for SBP proph
- hx esophageal varices with bleeding
- NPOpMN for Endoscopy in am
# Pancytopenia
- from ETOH abuse
- trend CBC
# Hypokalemia- replete
# Hypomag- replete
# Transaminitis- trend
#Hx bowel obstruction with ileostomy
- ileostomy with excoriation
- wound care consult
#Fox's thyroiditis
#Hypothyroidism
- TSH elevated Low Free T4
- doubt compliant with meds
- continue levothyroxine
#Anxiety
- continue gabapentin
- hold hydroxyzine and lorazepam prn
Code Status: Full Code
DVT Prophylaxis: SCDs
Time spent coordinating care, review of plan of care with resident, personally reviewed records in EMR, med rec, consults, notes, labs, radiology, d/w nursing and GI � 62 mins
Original Note:
Today's Communication/Plan
-
Added lorazepam 0.5 mg as needed.
Monitor MSAS.
Add phenobarbital taper.
Add hydrocortisone topical cream
Pending heme stool test
Assessment / Plan
Assessment / Plan
[id number]-old male with PMHx significant for Fox's thyroiditis, cirrhosis of liver, alcohol dependency, esophageal varices with bleeding, sleep apnea and anxiety disorder presented to the emergency room for symptoms of alcohol
withdrawal.
Plan-
Alcohol withdrawal in the setting of alcohol dependency.
EtOH levels obtained yesterday 18, patient denies using any barbiturates.
Urine tox positive for barbiturates and benzodiazepines.
MSAS score overnight at 5, patient required 1 additional dose of Ativan.
Total Ativan dose received since hospitalization-4 mg.
Will start the patient on phenobarbital taper to help with his tremors.
Psych saw the patient in the morning, recommended inpatient rehab, patient refused inpatient rehab.
Hypokalemia-
Serum potassium at 3.4, potassium supplementation given.
Hypomagnesemia-
Serum magnesium at 1.3, magnesium supplementation given.
Anemia-
Normocytic anemia-likely due to anemia of chronic disease.
Hemoglobin at 9.2, as of 03/09-hemoglobin at 14.1.
Suspect acute blood loss anemia secondary to his history of esophageal varices/cirrhosis.
Heme stool test-negative.
Pancytopenia-
Leukopenia at WBC count 2.2,
Thrombocytopenia at 111
Suspect secondary to chronic liver disease, alcoholic cirrhosis
Previously worked up for hep B and hep C-both negative.
Patient not vaccinated for hep B. Patient prefers no vaccination for hep B.
Acute on chronic hepatitis secondary to alcoholic cirrhosis
Elevated transaminases and GGT, total bilirubin within normal limits.
Trend liver function tests.
Patient PT, PTT, INR within normal limits
Maddrey score at -78.1, not pertinent.
Hypothyroidism secondary to Fox's thyroiditis.
His TSH is elevated to 23, free T4 values ordered.
Patient is not willing to go up on his levothyroxine dose due to his concern for hair loss.
Discussed going up on the patient's levothyroxine dose but patient refused.
History of bowel obstruction with ileostomy -
Contact dermatitis-
skin rash at the site of ileostomy dressing
Likely secondary to irritation from the dressing.
Prescription of hydrocortisone.
Anxiety disorder-
Hold hydroxyzine but continue lorazepam.
Continue gabapentin.
CODE STATUS-full code
DVT prophylaxis-SCDs.
Anticipated Discharge: 24 - 48 hours
Subjective/Interval History
-
Date of Service: March 25, 2024
Overnight, patient complains of worsening headache and tremors.
He also reports to have a low back pain.
Objective Data
-
Labs:
Laboratory Results
03/25/24 03/25/24
02:57 06:46
WBC 2.5 L
Hgb 9.2 L
Hct 26.9 L
Plt Count 111 L
APTT 30.9
Sodium 138
Potassium 3.3 L
Chloride 102
Carbon Dioxide 24
BUN 15
Creatinine 0.7
Glucose 101 H
Calcium 8.3 L
Total Bilirubin 1.0
AST 77 H
ALT 51 H
Alkaline Phosphatase 83
Vital Signs:
Vital Signs
Temp Pulse Resp BP Pulse Ox
98.4 F 109 20 143/86 98
03/25/24 11:53 03/25/24 11:53 03/25/24 11:53 03/25/24 11:53 03/25/24 11:53
Review of Systems
-
History Source: Patient
Constitutional: Reports No Symptoms
Respiratory: Reports No Symptoms
Cardiac: Reports No Symptoms
Abdomen/GI: Reports No Symptoms
Genitourinary: Reports No Symptoms
Musculoskeletal: Reports No Symptoms
Skin: Reports No Symptoms
Neuro: Reports No Symptoms
Endocrine: Reports No Symptoms
Hematologic / Lymphatic: Reports No Symptoms
Allergy / Immunology: Reports No Symptoms
Physical Exam
-
General: No Apparent Distress and Comfortable
HEENT: Moist Mucous Membranes and Other (Left eye has a discharge and erythema)
Respiratory: Clear to Auscultation; Negative Wheezes, Rales or Crackles
Cardiac: S1/S2, Irregular Rhythm and Murmur; Negative Rub or Gallop
GI: Soft, Nontender, Nondistended and Normal Bowel Sounds
Musculoskeletal: No Edema
Skin: Warm
Neuro: No Motor Deficits and Other (No cranial nerve defects, no p[ronator drift, no negative dysdiadochokinesia)
Psych: Calm
Data Reviewed
-
Medical Tests (Nuc Med, Echo etc): Image personally visualized and interpreted, Report Reviewed by me and Discussed with Physician
Labs: Labs Reviewed by me and Discussed with Physician
Old Records: Reviewed
[2024-03-25] MEDS: TYLENOL 500 MG PO ×2 (16:32→20:35)
[2024-03-25] MEDS: LUMINAL 97.2 MG PO ×2 (16:33→22:05)
[2024-03-25] MEDS: SANDOSTATIN 500.6 MCG IV (17:33)
--- NOTE | 2024-03-25 18:25 | CON.GI ---
Consultation
-
Date/Time Consultation Requested: 03/25/2024, 4pm
Date/Time Consultation Performed: 03/25/2024, 5pm
Requesting Provider: Dr. Harvey
Performing Provider: Dr. Phillips
Reason for Consultation: drop in Hb
Medical History
Chief Complaint / HPI
Chief Complaint: EtOH withdrawal
History of Present Illness:
58 yo PMH EtOH abuse (questionable history of cirrhosis; also his outpatient resident primary care doctor had in his notes history of esophageal varices which pt denies), complicated surgical history (SBO with ileostomy with complications of sepsis)
p/w EtOH withdrawal with anxiety, shakiness after recent detox and then returning to EtOH. Last drink was Friday.
GI consulted for incidentally noted drop in Hb - hb previously 14.1 (03/09) yesterday 9.5, today 9.2. No GI symptoms, brown stool from ileostomy.
Past Medical History
Past Medical History: Other (Fox's, questionable cirrhosis and varices, sleep apnea, anxiety)
Past Surgical History: Other (bowel obstruction with ileostomy c/b sepsis, hernia)
Social History
Tobacco: Non-Smoker
Alcohol: Chronic Alcoholic
Drug: None
Family History
Family History: Reviewed & Not Pertinent
Allergies / Home Medications
Allergy/AdvReac Type Severity Reaction Status Date / Time
No Known Allergies Allergy Verified 03/24/24 18:38
�Medication �Instructions �Recorded
levothyroxine 100 mcg tablet 100 mcg PO DAILY Thyroid 07/01/23
cyclobenzaprine 10 mg tablet 10 mg PO HS Muscle Spasms 02/29/24
hydroxyzine HCl 50 mg tablet 50 mg PO TIDPRN PRN anixety 02/29/24
lorazepam 1 mg tablet 0.5 mg PO HSPRN PRN anxiety 02/29/24
semaglutide 0.25 mg or 0.5 mg (2 0.25 mg SC CASIANO weight loss 02/29/24
mg/3 mL) subcutaneous pen injector
(Ozempic)
Review of Systems
-
All other systems: A 12 pt ROS was Negative except as stated above in HPI
Vital Signs
Temp Pulse Resp BP Pulse Ox
98.9 F 104 12 133/80 94
03/25/24 15:39 03/25/24 15:39 03/25/24 15:39 03/25/24 15:39 03/25/24 15:39
Physical Exam
Exam
General: Well Developed
HEENT: Normocephalic
Respiratory: Clear
Cardiac: Regular Rhythm
GI: Non Tender and Non Distended
Musculoskeletal: No Clubbing
Skin: Warm
Neuro: AO x 3
Psych: Other (tremulous)
Results
WBC 2.5 10^3/uL (4.8-10.8) L 03/25/24 06:46
Hgb 9.2 g/dL (13.0-18.0) L 03/25/24 06:46
Hct 26.9 % (39.0-52.0) L 03/25/24 06:46
MCV 84.3 fL (80.0-94.0) 03/25/24 06:46
Plt Count 111 10^3/uL (130-400) L 03/25/24 06:46
Absolute Neuts (auto) 1.7 10^3/uL (1.4-6.5) 03/25/24 06:46
PT 14.2 Sec (11.4-14.6) 03/24/24 22:44
INR 1.05 03/24/24 22:44
APTT 30.9 Sec (23.4-35.0) 03/25/24 02:57
Sodium 138 mmol/L (135-145) 03/25/24 06:46
Potassium 3.3 mmol/L (3.5-5.1) L 03/25/24 06:46
Chloride 102 mmol/L (98-107) 03/25/24 06:46
Carbon Dioxide 24 mmol/L (22-30) 03/25/24 06:46
BUN 15 mg/dl (9-20) 03/25/24 06:46
Creatinine 0.7 mg/dL (0.7-1.3) 03/25/24 06:46
Calcium 8.3 mg/dl (8.4-10.2) L 03/25/24 06:46
Total Bilirubin 1.0 mg/dl (0.2-1.3) 03/25/24 06:46
AST 77 U/L (17-59) H 03/25/24 06:46
ALT 51 U/L (0-50) H 03/25/24 06:46
Alkaline Phosphatase 83 U/L (38-126) 03/25/24 06:46
Diagnostic Image Results:
Prior GI Procedures:
EGD:
Colonoscopy:
Assessment / Plan
-
58 yo M questionable history of cirrhosis (does have thrombocytopenia, normal INR, no cirrhotic changes on CT -if cirrhotic MELD 7 today) p/w EtOH withdrawal found incidentally to have significant drop in Hb.
No RPB on CT.
Brown stool.
Seems to be slow overt bleed but significant acute drop. Diff: PUD, gastritis, varices (atypical for presentation with no overt bleeding), Dieulofoy, malignancy, polyp, AVM.
Recommendations:
- Octreotide gtt, IV PPI BID, ceftriaxone 1 g daily if he is a cirrhotic with possible GIB
- NPO after midnight for possible EGD tomorrow r/a/b d/w pt agreeable
- Unclear if will be able to do EGD with EtOH withdrawal will d/w anesthesia tomorrow
- Resident to see if they can obtain records from prior EGD per patient done in [place], per resident notes possibly [place]
- Daily MELD labs
- Outpatient fibroscan to assess for cirrhosis
- Treatment of EtOH withdrawal per primary team; pt needs EtOH cessation termite helper
D/w resident
-
-
Thank you for consultation and allowing me to participate in the patient's care. Please call the director of convention services GI physician during the after hours with any questions or concerns.
[2024-03-25] MEDS: STERILE WATER FOR INJECTION 10 ML IV (20:18)
[2024-03-25] MEDS: HYDROCORTISONE 1% CREAM 1 APPLIC TOPICAL (20:19)
[2024-03-25] MEDS: ROCEPHIN 1000 MG IV (20:27)
[2024-03-25] MEDS: FLUSH (NSS) 2 FLUSH IV (20:28)
[2024-03-26] VITALS (8 sets, daily range): BP systolic 13–128; BP diastolic 67–88
[2024-03-26] MEDS: ATIVAN 1 MG PO (01:14)
[2024-03-26] MEDS: TYLENOL 500 MG PO (01:40)
[2024-03-26] MEDS: ATIVAN 1 MG IV ×2 (02:52→08:27)
[2024-03-26] MEDS: SANDOSTATIN 500.6 MCG IV (05:52)
--- NOTE | 2024-03-26 07:42 | WOUNDNOTE ---
WOC RN Note: Confirmed with Dr. Phillips that ileostomy irrigation was not recommended. [place] texted Dr. Harvey who confirmed can cancel wound/ostomy consult for 'ileostomy irrigation'.
[2024-03-26] MEDS: PROTONIX 40 MG PO (08:30)
[2024-03-26] MEDS: THIAMINE INJECTION 200 MG IV (08:30)
[2024-03-26] MEDS: LUMINAL 97.2 MG PO ×2 (08:30→15:15)
[2024-03-26] MEDS: FOLVITE 1 MG PO (08:30)
[2024-03-26 09:13] LABS: % Basophils 0.7 % (0-2); % Immature Granulocytes 0.7 % (0-0.5); % Lymphocytes 25.8 % (20.5-51.1); % Monocytes 9.8 % (1.7-9.3); Absolute Eosinophils 0.1 10^3/uL (0-0.7); Absolute Lymphocytes 0.7 10^3/uL (1.2-3.4); Absolute Monocytes 0.3 10^3/uL (0.1-0.6); Absolute Neutrophils 1.6 10^3/uL (1.4-6.5); Hematocrit 27.5 % (39.0-52.0); Hemoglobin 9.3 g/dL (13.0-18.0); Mean Corp Hgb Conc. 33.8 g/dL (33.0-37.0); Mean Corpuscular Hgb 29.2 pg (27.0-31.0); Mean Corpuscular Volume 86.5 fL (80.0-94.0); Mean Platelet Volume 10.1 fL (7.4-10.4); Nucleated Red Blood Cells % 0 % (-); Platelet Count 108 10^3/uL (130-400); Red Blood Cell Count 3.18 10^6/uL (4.70-6.10); Red Cell Dist. Width 16.7 % (11.5-14.5); White Blood Cell Count 2.8 10^3/uL (4.8-10.8)
[2024-03-26 09:21] LABS: INR 1.18; PT 15.3 Sec (11.4-14.6)
[2024-03-26 09:44] LABS: ALT (SGPT) 57 U/L (0-50); AST (SGOT) 98 U/L (17-59); Albumin 3.5 g/dl (3.5-5.0); Alkaline Phosphatase 77 U/L (38-126); Blood Urea Nitrogen 13 mg/dl (9-20); Calcium 8.1 mg/dl (8.4-10.2); Carbon Dioxide 25 mmol/L (22-30); Chloride 103 mmol/L (98-107); Direct Bilirubin 0.2 mg/dl (0.0-0.4); Estimated Creatinine Clearance 81 ml/min; Glucose 118 mg/dl (70-99); Potassium 3.7 mmol/L (3.5-5.1); Sodium 138 mmol/L (135-145); Total Bilirubin 0.7 mg/dl (0.2-1.3); eGFR > 60.00
[2024-03-26 11:00] LABS: Magnesium 1.7 mg/dl (1.6-2.3)
--- NOTE | 2024-03-26 11:58 | WOUNDNOTE ---
[facility] RN note: Misread the C RN Consult. WOC RN consult was for skin irritation not irrigation. He has abdominal hernias. He stated he had his ileostomy surgery in [place]. Patient has peristomal skin irritation d/t he wasn't caring for his ostomy
while he was drinking alcohol and his ostomy appliance was leaking. His ileostomy has not been changed since admission. He has dry irritant dermatitis R abdomen. His peristomal skin is dull red with some excoriated skin medially d/t wafer leakage.
He has his own ostomy supplies (Coloplast 1 piece 'flip' pouch #[id number], Coloplast moldable ring and C shaped Coloplast large barrier extenders). He uses stoma powder and no sting skin prep as needed. Changed patient's appliance using no sting
Cavilon skin prep to peristomal skin. Hydrocortisone cream applied to abdominal skin irritation R outer abdomen. [place] texted Dr. Harvey with update. Instructed patient to change his appliance 2 times a week and nursing can help as needed.
Will sign off. Call if needed.
--- NOTE | 2024-03-26 12:01 | W.PN.UPDATE ---
Update Note
Progress Note Update
I will follow up on patient tomorrow -
was sleeping post procedure
I do worry about compliance
I will check on him tomorrow see how his iron studies are consider repeat EGD with ileoscopy on Friday
[2024-03-26] MEDS: HYDROCORTISONE 1% CREAM TOPICAL (12:58)
--- NOTE | 2024-03-26 14:00 | W.PN.HOSP.TC ---
Addendum entered and electronically signed by Feroz Hsieh MD 03/27/24 00:14:
Attending Addendum-
I saw and evaluated the patient. I reviewed the resident�s note and agree with findings and plan as documented in the resident�s note. Sub: seen post endo. feels good. no further tremors. ok to go home. Full 12 point ROS reviewed and negative except
as documented Exam: Vitals reviewed in chart GEN-NAD heart RRR Lungs clear abd ostomy with liquid brown stool LE no edema Neuro AAO x 3
Plan:
#Etoh Withdrawal/ AUD
-drinking 1-3 pints vodka per day for at least 2 weeks
-recent detox x 5 days at [place]. relapsed afterwards
-MSAS protocol with lorazepam
-DC on phenobarb taper with strict f/u with [facility] clinic
-high risk DT's
-advised cessation of ETOH and IP rehab
#Anemia
- 14.1->9.3 in 2 weeks
- heme pos in ostomy resolved
- BID PPI
- hx esophageal varices with bleeding
- Endo 03/26- no varices seen stomach with undigested material no active bleed seen
- f/u as OP
# Pancytopenia
- from ETOH abuse
- trend CBC
# Hypokalemia- resolved
# Hypomag- resolved
# Transaminitis- improved
#Hx bowel obstruction with ileostomy
- ileostomy with excoriation possibly fungal
- f/u GI as OP
- wound care consult
#Fox's thyroiditis
#Hypothyroidism
- TSH elevated Low Free T4
- doubt compliant with meds
- continue levothyroxine
#Anxiety
- continue gabapentin
- hold hydroxyzine and lorazepam prn
Code Status: Full Code
DVT Prophylaxis: SCDs
Dispo close f/u [facility]
Time spent coordinating care, DC planning, review of DC plan of care with resident, transition of care, review of records, med rec/scripts sent electronically, consults, notes, d/w consultants, nursing, family, and CM� 35 mins
Original Note:
Today's Communication/Plan
-
Upper GI endoscopy today.
Continue phenobarbital taper.
Continue protonix, and octeotride.
Assessment / Plan
Assessment / Plan
Xohunxpvfo-[id number]-old male with PMHx significant for Fox's thyroiditis, cirrhosis of liver, alcohol dependency, esophageal varices with bleeding, sleep apnea and anxiety disorder presented to the emergency room for symptoms of alcohol
withdrawal.
Plan-
Alcohol withdrawal in the setting of alcohol dependency.
EtOH levels obtained yesterday 18, patient denies using any barbiturates.
Urine tox positive for barbiturates and benzodiazepines.
MSAS score overnight at 5, patient required 1 additional dose of Ativan.
Total Ativan dose received since hospitalization-4 mg.
Will start the patient on phenobarbital taper to help with his tremors.
Psych saw the patient yesterday morning, recommended inpatient rehab, patient refused inpatient rehab.
Hypokalemia-
Serum potassium at 3.4, potassium supplementation given on 03/25.
Resolved.
Hypomagnesemia-
Serum magnesium at 1.3, magnesium supplementation given.
Resolved.
Anemia-
Normocytic anemia-likely due to anemia of chronic disease.
Hemoglobin at 9.2, as of 03/09-hemoglobin at 14.1.
Suspect acute blood loss anemia secondary to his history of esophageal varices/cirrhosis.
No documented history of cirrhosis or esophageal varices in the past. Only evidence for enlarged liver. GI consulted, plan for scope today.
Appreciate GI inputs
Heme stool test-negative.
Iron profile work up outpatient, script given to the patient.
Upper GI endoscopy - - Normal esophagus.
- A medium amount of food (residue) in the stomach.
- Normal examined duodenum.
- No specimens collected.
- A single submucosal papule (nodule) found in the
stomach. Not biopsied or examined due to food on exam.
Pancytopenia-
Leukopenia at WBC count 2.7,
Thrombocytopenia at 111.
Suspect secondary to bone marrow suppression from alcohol or cirrhosis.
Previously worked up for hep B and hep C-both negative.
Patient not vaccinated for hep B. Patient prefers no vaccination for hep B.
Acute on chronic hepatitis secondary to alcoholic cirrhosis
Elevated transaminases and GGT, total bilirubin within normal limits.
Trend liver function tests.
Patient PT, PTT, INR within normal limits
Maddrey score at -78.1, not pertinent.
Hypothyroidism secondary to Fox's thyroiditis.
His TSH is elevated to 23, free T4 values ordered.
Patient is not willing to go up on his levothyroxine dose due to his concern for hair loss.
Discussed going up on the patient's levothyroxine dose but patient refused.
History of bowel obstruction with ileostomy -
Contact dermatitis-
skin rash at the site of ileostomy dressing
Likely secondary to irritation from the dressing.
Prescription of hydrocortisone.
Anxiety disorder-
Hold hydroxyzine but continue lorazepam.
Continue gabapentin.
CODE STATUS-full code
DVT prophylaxis-SCDs.
Anticipated Discharge: Today
Subjective/Interval History
-
Date of Service: March 26, 2024
Overnight, patient's heme stool test turned out positive, GI was consulted. GI suspected questionable cirrhosis/peptic ulcer disease, and started the patient on a PPI twice daily dose, ceftriaxone for prophylaxis, octreotide GGT and plan to scope
for today. We also started patient on a phenobarbital taper dose. Patient reports to be feeling much better today.
Objective Data
-
Labs:
Laboratory Results
03/26/24
06:47
WBC 2.8 L
Hgb 9.3 L
Hct 27.5 L
Plt Count 108 L
PT 15.3 H
INR 1.18
Sodium 138
Potassium 3.7
Chloride 103
Carbon Dioxide 25
BUN 13
Creatinine 0.9
Glucose 118 H
Calcium 8.1 L
Total Bilirubin 0.7
AST 98 H
ALT 57 H
Alkaline Phosphatase 77
Vital Signs:
Vital Signs
Temp Pulse Resp BP Pulse Ox
97.8 F 85 14 128/85 98
03/26/24 11:12 03/26/24 11:12 03/26/24 11:12 03/26/24 11:12 03/26/24 11:12
I&O
03/25/24 03/26/24 03/27/24
06:59 06:59 06:59
Intake Total 1200.4 / 1200.4
Balance 1200.4 / 1200.4
Physical Exam
-
General: No Apparent Distress and Comfortable
HEENT: Moist Mucous Membranes
Respiratory: Clear to Auscultation; Negative Wheezes, Rales, Rhonchi or Crackles
Cardiac: Regular Rhythm and S1/S2; Negative Murmur, Rub or Gallop
GI: Soft, Nontender, Nondistended, Normal Bowel Sounds, Ostomy (Contact dermatitis rash round ostomy) and Other (palpable abdominal hernia/rectal diastasis round abdomen)
Musculoskeletal: No Clubbing, No Cyanosis and No Edema
Skin: Warm
Neuro: No Motor Deficits
Psych: Calm
Data Reviewed
-
Ultrasound: Image personally visualized and interpreted, Report Reviewed by me and Discussed with Physician
Medical Tests (Nuc Med, Echo etc): Image personally visualized and interpreted, Report Reviewed by me and Discussed with Physician
Labs: Labs Reviewed by me and Discussed with Physician
Old Records: Reviewed
--- NOTE | 2024-03-26 14:04 | W.DCSUMMARY ---
Addendum entered and electronically signed by Feroz Hsieh MD 03/27/24 00:15:
Read, reviewed, and agree. See same day progress note for additional details. Care plan verified with mother. Phenobarb taper on DC encouraged compliance. F/U GI f/u [facility] debbie
Bryon Hsieh MD
Original Note:
Documented by User: Estephania Harvey MD, Resident 03/26/24 16:57
Discharge Summary
Discharge Data
Date of Admission: 03/24/24
Date of Discharge: 03/26/24
-
Pending Results: No
Hospital Course
Jrwgfujide-[id number]-old male with PMHx significant for Fox's thyroiditis, cirrhosis of liver, alcohol dependency, esophageal varices with bleeding, sleep apnea and anxiety disorder presented to the emergency room for symptoms of alcohol
withdrawal.
Hospital Course -
Upon arrival to the hospital patient was found to be in acute alcohol withdrawal, his NSAID score visit 9, patient received 2 mg of Ativan and is admitted to the hospital. Overnight patient's urine toxicology in the ER came back positive for
barbiturates and benzodiazepines. Patient's prescription from the outpatient has only benzodiazepines but no barbiturates however ER records show no administration of barbiturates into his system. Upon PDMP verification patient does have
prescription refills on hydrocodone-acetaminophen from his provider in [place] in the past and benzodiazepines from our outpatient office. However PDMP records did not include [place] data. Patient stated that he had some prescription refills from
his [place] physicians of which 1 is Topamax, and patient took a dose of Topamax before coming to the hospital. I explained the patient that Topamax would not result as barbiturates positive in his urine, however he might have a prescription at
home that has barbiturates in it.
There is an acute drop in his hemoglobin noted from his previous ER visit on 03/09-hemoglobin at 14.5, his repeat hemoglobin upon this admission was at 9.5, heme stool test turned out positive, GI was consulted while the patient is started on
phenobarbital taper the next day. GI decided to proceed with an upper GI endoscopy, and started the patient on ceftriaxone prophylaxis, octreotide gtt., Protonix twice daily. We requested records for the patient from [place] and [place], the
records did not show an evidence of cirrhosis or esophageal varices, and EGD results were not significant however his stomach could not be visualized because of moderate food residue suspected secondary to Ozempic. Hence his octreotide is
discontinued, ceftriaxone is discontinued and Protonix is reduced to 40 mg once a day beginning today. However patient recalled today after his EGD that he had an episode of fresh bright blood in his stool from his ileostomy pouch on 03/17 which he
had a picture of. GI wanted to proceed with ileoscopy on outpatient basis at the [facility] upon discharge. On the day of discharge-patient started feeling much better on phenobarbital taper, hence a prescription of phenobarbital taper along
with folic acid, thiamine were given to the patient. Prescription for CBC and iron profile labs given to the patient. Patient is to follow-up with his primary care as well as GI in the next 1 week.
Of note during the hospital visit patient TSH was found to be at 21.6, his free T4 was low and we offered patient a change in the Synthyroid dose. However patient refused stating that he would have huge hair loss with a dose higher than 100 mcg.
Procedure and work up during hospital course -
EGD - 03/26/24 - Normal esophagus.
- A medium amount of food (residue) in the stomach.
- Normal examined duodenum.
- No specimens collected.
- A single submucosal papule (nodule) found in the
stomach. Not biopsied or examined due to food on exam.
Discharge Plan
-
Patient Disposition: Home (Routine Discharge)
Discharge Diagnosis/Procedures: Acute alcohol withdrawal, acute blood loss anemia - microcytic anemia
Condition: Fair
Diet: As tolerated
Activity: No restrictions
Driving Restrictions: As prior to admission
Bathing Restrictions: None
Blood Work: CBC, Iron studies.
Activity Restrictions/Additional Instructions:
Ileostomy-Change ostomy appliance 2 times a week and as needed for leakage. Apply light dusting of OTC 2% miconazole powder followed by no sting barrier wipe with each pouch change as needed for peristomal rash.
Please maintain abstinence from Alcohol. Follow up with your primary care to discuss medication options for alcohol use disorder
Please follow up with your GI on FridayMarch 31 with your lab results.
Referrals:
Pastor Phillips MD [Active] - 03/31/24 1:00 pm (Please call to reschedule if you can not keep this appointment. If your insurance requires a referral please contact your primary care physician prior to your appointment. )
Shay Strauss MD, Resident [Family Provider] - in less than 1 week
Prescriptions:
New
miconazole nitrate [Miconazorb AF] 2 % Powder
1 applic topical BID 10 Days Qty: 85 0RF
hydrocortisone 1 % Cream
1 applic topical BID 10 Days Qty: 10 0RF
folic acid 1 mg Tablet
1 mg PO DAILY 30 Days Qty: 30 1RF
phenobarbital 32.4 mg tablet
97.2 mg PO TID 1 Days Qty: 9 0RF
thiamine HCl (vitamin B1) 100 mg Tablet
100 mg PO BID 30 Days Qty: 60 1RF
acetaminophen [Tylenol Extra Strength] 500 mg Tablet
500 mg PO Q4HPRN MDD 3grams - 6 tablets PRN (Reason: Back pain) Qty: 30 0RF
phenobarbital 32.4 mg Tablet
32.4 mg PO TID 2 Days Qty: 6 0RF
phenobarbital 32.4 mg Tablet
64.8 mg PO TID 2 Days Qty: 12 0RF
pantoprazole 40 mg tablet,delayed release (DR/EC)
40 mg PO DAILY 30 Days Qty: 30 0RF
Continued
levothyroxine 100 mcg Tablet
100 mcg PO DAILY
cyclobenzaprine 10 mg Tablet
10 mg PO HS
hydroxyzine HCl 50 mg Tablet
50 mg PO TIDPRN PRN (Reason: anixety)
Ozempic 0.25 mg or 0.5 mg (2 mg/3 mL) Pen Injector
0.25 mg SC CASIANO
Rx Instructions:
for 4 weeks
lorazepam 1 mg tablet
0.5 mg PO HSPRN PRN (Reason: anxiety)
Discharge Orders:
Discharge Patient (As Directed); Ordered 03/26/24
Ordered By: Estephania Harvey
Discharge Date and Time
Discharge Date/Time: 03/26/24 16:44
Print Language: ANDORRAN

Documented by User: Feroz Hsieh MD 03/27/24 00:06
Discharge Summary
Discharge Data
Date of Admission: 03/24/24
Date of Discharge: 03/27/24
Discharge Plan
-
Patient Disposition: Home (Routine Discharge)
Discharge Diagnosis/Procedures: Acute alcohol withdrawal, acute blood loss anemia - microcytic anemia
Condition: Fair
Diet: As tolerated
Activity: No restrictions
Driving Restrictions: As prior to admission
Bathing Restrictions: None
Blood Work: CBC, Iron studies.
Activity Restrictions/Additional Instructions:
Ileostomy-Change ostomy appliance 2 times a week and as needed for leakage. Apply light dusting of OTC 2% miconazole powder followed by no sting barrier wipe with each pouch change as needed for peristomal rash.
Please maintain abstinence from Alcohol. Follow up with your primary care to discuss medication options for alcohol use disorder
Please follow up with your GI on FridayMarch 31 with your lab results.
Referrals:
Pastor Phillips MD [Active] - 03/31/24 1:00 pm (Please call to reschedule if you can not keep this appointment. If your insurance requires a referral please contact your primary care physician prior to your appointment. )
Shay Strauss MD, Resident [Family Provider] - in less than 1 week
Prescriptions:
New
miconazole nitrate [Miconazorb AF] 2 % Powder
1 applic topical BID 10 Days Qty: 85 0RF
hydrocortisone 1 % Cream
1 applic topical BID 10 Days Qty: 10 0RF
folic acid 1 mg Tablet
1 mg PO DAILY 30 Days Qty: 30 1RF
phenobarbital 32.4 mg tablet
97.2 mg PO TID 1 Days Qty: 9 0RF
thiamine HCl (vitamin B1) 100 mg Tablet
100 mg PO BID 30 Days Qty: 60 1RF
acetaminophen [Tylenol Extra Strength] 500 mg Tablet
500 mg PO Q4HPRN MDD 3grams - 6 tablets PRN (Reason: Back pain) Qty: 30 0RF
phenobarbital 32.4 mg Tablet
32.4 mg PO TID 2 Days Qty: 6 0RF
phenobarbital 32.4 mg Tablet
64.8 mg PO TID 2 Days Qty: 12 0RF
pantoprazole 40 mg tablet,delayed release (DR/EC)
40 mg PO DAILY 30 Days Qty: 30 0RF
Continued
levothyroxine 100 mcg Tablet
100 mcg PO DAILY
cyclobenzaprine 10 mg Tablet
10 mg PO HS
hydroxyzine HCl 50 mg Tablet
50 mg PO TIDPRN PRN (Reason: anixety)
Ozempic 0.25 mg or 0.5 mg (2 mg/3 mL) Pen Injector
0.25 mg SC CASIANO
Rx Instructions:
for 4 weeks
lorazepam 1 mg tablet
0.5 mg PO HSPRN PRN (Reason: anxiety)
Discharge Orders:
Discharge Patient (As Directed); Ordered 03/26/24
Ordered By: Estephania Harvey
Discharge Date and Time
Discharge Date/Time: 03/26/24 16:44
Print Language: ANDORRAN
--- NOTE | 2024-03-26 14:13 | W.PN.UPDATE ---
Update Note
Progress Note Update
Pt showed me pics on phone - had BRB from ileostomy on 03/17 x1 large episode.
No further bleeding since then.
Could have been excoriation around ileostomy but will plan outpatient EGD/ileoscopy.
Check Hb next week outpatient.
Moved appt to 03/31 at 1pm with me since he is being discharged.
D/w resident ok for discharge with GI follow up. No active bleeding here, stable Hb suspect bled on 03/17 and since resolved. Pt counseled if any further bleeding to return to hospital with mom at bedside reviewed.
[2024-03-26 15:11] LABS: Iron < 20 ug/dl (49-181); Total Iron Binding Capacity 387 ug/dl (261-462)
--- NOTE | 2024-03-26 15:21 | CM ---
CM reviewed chart, patient for discharge today. Patients mother bedside, inquiring about outpatient D/A resources. Rick from [facility] will come up to provide resources. CM will continue to follow for all discharge planning needs.
Plan; home with mother, resources from [facility]
[2024-03-26 15:49] LABS: Ferritin 18.9 ng/ml (17.9-464.0)
[2024-03-26 16:20] LABS: Folate 16.5 ng/ml (2.76-20); Vitamin B12 671 pg/ml (239-931)
== END 2024-03-26 16:44 | disposition home or self-care (01) | DRG 897 ==
LOC: 4 WEST ACU 23:05
PROVIDERS: Nurse Practitioner Family; Student in an Organized Health Care Education/Training Program; ADMITTING PHYSICIAN Internal Medicine; ATTENDING PHYSICIAN Family Medicine; CONSULT PHYSICIAN Internal Medicine Gastroenterology; EMERGENCY PHYSICIAN Emergency Medicine; FAMILY PHYSICIAN Student in an Organized Health Care Education/Training Program; OTHER PHYSICIAN Psychiatry & Neurology Psychiatry
PROC: 0DJ08ZZ Inspection of Upper Intestinal Tract, Via Natural or Artificial Opening Endoscopic (ICD-10-PCS; 2024-03-26)
DX: F10.239 Alcohol dependence with withdrawal, unspecified (principal); D61.818 Other pancytopenia; D62 Acute posthemorrhagic anemia; E06.3 Autoimmune thyroiditis; Z60.2 Problems related to living alone; E87.6 Hypokalemia; K70.30 Alcoholic cirrhosis of liver without ascites; E83.42 Hypomagnesemia; R74.01 Elevation of levels of liver transaminase levels; D63.8 Anemia in other chronic diseases classified elsewhere; D69.6 Thrombocytopenia, unspecified; K70.10 Alcoholic hepatitis without ascites; K31.89 Other diseases of stomach and duodenum; L25.9 Unspecified contact dermatitis, unspecified cause; G47.30 Sleep apnea, unspecified; F41.9 Anxiety disorder, unspecified; R25.1 Tremor, unspecified; Y90.0 Blood alcohol level of less than 20 mg/100 ml; Z79.890 Hormone replacement therapy; Z79.85 Long-term (current) use of injectable non-insulin antidiabetic drugs; Z87.19 Personal history of other diseases of the digestive system; Z93.2 Ileostomy status
CPT/HCPCS: 80053; 80306; 80307; 81003; 81015; 82010; 82077; 82248; 82607; 82728; 82746; 82977; 83540; 83550; 83735; 84100; 84439; 84443; 85025; 85610; 85730; 93005; 96361; 96374; 96376; 99285

== ENCOUNTER 2024-04-14 14:26 | Emergency (ER) | payer OTHER, SELFPAY ==
[2024-04-14] VITALS (10 sets, daily range): BP systolic 113–146; BP diastolic 71–101; BMI 32.5
[2024-04-14 14:43] LABS: % Basophils 1.7 % (0-2); % Eosinophils 1.3 % (0-6); % Immature Granulocytes 0.4 % (0-0.5); % Lymphocytes 34.2 % (20.5-51.1); % Monocytes 10.4 % (1.7-9.3); Absolute Basophils 0.1 10^3/uL (0-0.2); Absolute Eosinophils 0.1 10^3/uL (0-0.7); Absolute Lymphocytes 1.8 10^3/uL (1.2-3.4); Absolute Monocytes 0.5 10^3/uL (0.1-0.6); Absolute Neutrophils 2.7 10^3/uL (1.4-6.5); Hematocrit 32.2 % (39.0-52.0); Hemoglobin 10.7 g/dL (13.0-18.0); Mean Corp Hgb Conc. 33.2 g/dL (33.0-37.0); Mean Corpuscular Hgb 26.8 pg (27.0-31.0); Mean Corpuscular Volume 80.7 fL (80.0-94.0); Nucleated Red Blood Cells % 0 % (-); Platelet Count 197 10^3/uL (130-400); Red Blood Cell Count 3.99 10^6/uL (4.70-6.10); Red Cell Dist. Width 16.9 % (11.5-14.5); White Blood Cell Count 5.2 10^3/uL (4.8-10.8)
[2024-04-14 15:01] LABS: ALT (SGPT) 52 U/L (0-50); AST (SGOT) 67 U/L (17-59); Albumin 4.7 g/dl (3.5-5.0); Alkaline Phosphatase 82 U/L (38-126); Blood Urea Nitrogen 13 mg/dl (9-20); Calcium 8.6 mg/dl (8.4-10.2); Carbon Dioxide 24 mmol/L (22-30); Chloride 106 mmol/L (98-107); Estimated Creatinine Clearance 105 ml/min; Glucose 110 mg/dl (70-99); Lipase 258 U/L (23-300); Potassium 3.9 mmol/L (3.5-5.1); Sodium 143 mmol/L (135-145); Total Bilirubin 0.3 mg/dl (0.2-1.3); Total Protein 7.5 g/dl (6.3-8.2); eGFR > 60.00
[2024-04-14] MEDS: ATIVAN 2 MG IV (15:37)
[2024-04-14 15:51] LABS: Alcohol 418 mg/dl
--- NOTE | 2024-04-14 15:55 | ED.GENMED ---
History of Present Illness
<Ry Ellis DO - Last Filed: 04/14/24 19:58>
General
Chief Complaint: Alcohol Problem
Time Seen by Provider: 04/14/24 14:29
<Cyn Harper PA-C - Last Filed: 04/14/24 19:49>
General
Source: patient
Exam Limitations: none
Nursing documentation reviewed up to this point in time: agreed with
History of Present Illness
History of Present Illness:
59-year-old male past medical history of alcohol use disorder, cirrhosis hence emergency department today with concerns of seeking treatment for alcohol. Patient was with his parents at home and they called EMS due to patient being intoxicated and
saying that they wanted patient to get help. Patient currently reports that he has abdominal pain and states that he has a lot of tremors and feels that he is withdrawing although he did admit to drinking 5 glasses of vodka today. Patient states
that he has been on and off drinking for many years. Patient denies any nausea or vomiting, denies any fevers or chills, denies any dark black tarry stools, denies any hematemesis. Patient denies any syncopal episodes. Patient states that this
time, he does want help for his drinking.
Past History
<Ry Ellis DO - Last Filed: 04/14/24 19:58>
Past History
ED Past Medical History: Hypothyroidism and Other (Bowel obstrucation, Cirrhosis of the liver, Alcohol abuse)
ED Past Surgical History: Other (Ileostomy due to infection located by sepsis, Hernia X 2)
Social History
Tobacco: Non-smoker
Alcohol: Daily
Drug: None
Personal:
Living: alone
Review of Systems
<Cyn Harper PA-C - Last Filed: 04/14/24 19:49>
Review of Systems
All Other Systems: ROS reviewed and negative except as documented in HPI and ROS
Phy Exam
<Cyn Harper PA-C - Last Filed: 04/14/24 19:49>
Physical Exam
Physical Exam:
General: Patient appears acutely intoxicated, non-toxic appearing
Skin: Warm and dry, no rashes or lesions
Head: Normocephalic, atraumatic
Eyes: Sclera non-icteric. EOMs intact. PERRLA.
Cardiac: Regular rate and rhythm, no murmurs
Peripheral Vascular: No lower extremity swelling or edema
Pulm: Normal respiratory effort, no wheezes, rales, or rhonchi
Abdomen: RUQ abdominal tenderness to palpation
Neuro: CN II-XII intact, no focal neurologic deficits.
Psychiatric: Appropriate mood and affect.
Scores
<Cyn Harper PA-C - Last Filed: 04/14/24 19:49>
Withdrawal Assessment of Alcohol
Withdrawal Assessment Completed?: Not applicable
Course
<Ry Ellis DO - Last Filed: 04/14/24 19:58>
Orders/Labs/Results
Orders:
Orders
04/14/24 14:30
EKG- Treatment ONCE
04/14/24 14:31
Alcohol Urgent
Complete Blood Count/With Diff Urgent
Comprehensive Metabolic Panel Urgent
Lipase Urgent
04/14/24 15:05
EKG [Electrocardiogram (*1)] Urgent
Reason for Study: Vertigo / Dizzy
EKG- Treatment ONCE
04/14/24 15:10
US Abdomen Limited Urgent
Comment:
Reason For Exam: right upper quadrant pain
04/14/24 15:24
Lorazepam [Ativan] 2 mg IV NOW STA
04/14/24 17:08
0.9% Sodium Chloride 500 ml [Nss] 500 ml IV BOLUS
Abnormal Lab Results
04/14/24
14:31
RBC 3.99 L 10^6/uL
(4.70-6.10)
Hgb 10.7 L g/dL
(13.0-18.0)
Hct 32.2 L %
(39.0-52.0)
MCH 26.8 L pg
(27.0-31.0)
RDW 16.9 H %
(11.5-14.5)
Monocytes % 10.4 H %
(1.7-9.3)
Glucose 110 H mg/dl
(70-99)
AST 67 H U/L
(17-59)
ALT 52 H U/L
(0-50)
Alcohol, Quantitative 418 H* mg/dl
04/14/24 14:31
04/14/24 14:31
Vital Signs
Initial and Last Documented VS:
Initial Vital Signs
BP
146/95
04/14/24 14:29
Last Documented Vital Signs
Temp Pulse Resp BP Pulse Ox
36.4 C 91 20 133/79 96
04/14/24 14:37 04/14/24 19:15 04/14/24 18:03 04/14/24 18:54 04/14/24 19:15
Sakshilt;Cyn Harper PA-C - Last Filed: 04/14/24 19:49>
Orders/Labs/Results
Orders:
Orders
04/14/24 14:30
EKG- Treatment ONCE
04/14/24 14:31
Alcohol Urgent
Complete Blood Count/With Diff Urgent
Comprehensive Metabolic Panel Urgent
Lipase Urgent
04/14/24 15:05
EKG [Electrocardiogram (*1)] Urgent
Reason for Study: Vertigo / Dizzy
EKG- Treatment ONCE
04/14/24 15:10
US Abdomen Limited Urgent
Comment:
Reason For Exam: right upper quadrant pain
04/14/24 15:24
Lorazepam [Ativan] 2 mg IV NOW STA
04/14/24 17:08
0.9% Sodium Chloride 500 ml [Nss] 500 ml IV BOLUS
Abnormal Lab Results
04/14/24
14:31
RBC 3.99 L 10^6/uL
(4.70-6.10)
Hgb 10.7 L g/dL
(13.0-18.0)
Hct 32.2 L %
(39.0-52.0)
MCH 26.8 L pg
(27.0-31.0)
RDW 16.9 H %
(11.5-14.5)
Monocytes % 10.4 H %
(1.7-9.3)
Glucose 110 H mg/dl
(70-99)
AST 67 H U/L
(17-59)
ALT 52 H U/L
(0-50)
Alcohol, Quantitative 418 H* mg/dl
04/14/24 14:31
04/14/24 14:31
Vital Signs
Initial and Last Documented VS:
Initial Vital Signs
BP
146/95
04/14/24 14:29
Last Documented Vital Signs
Temp Pulse Resp BP Pulse Ox
36.4 C 91 20 133/79 96
04/14/24 14:37 04/14/24 19:15 04/14/24 18:03 04/14/24 18:54 04/14/24 19:15
<Cyn Harper PA-C - Last Filed: 04/14/24 19:49>
MDM/Problems Addressed
Differential Diagnosis Includes:
see below
MDM/Problems Addressed:
NUMBER AND COMPLEXITY OF PROBLEMS ADDRESSED AT THE ENCOUNTER
� Chronic conditions affecting care: Alcohol use disorder, cirrhosis
� Acute Exacerbation and/or Progression of Chronic Illness:
� Differential Diagnosis includes: Alcohol abuse, cirrhosis, alcohol withdrawal, cholecystitis, pancreas
AMOUNT AND/OR COMPLEXITY OF DATA TO BE REVIEWED AND ANALYZED
� I performed an independent evaluation of and my interpretation is:
EKG: Reviewed EKG, patient is EKG reveals normal sinus rhythm rate 74 with no ischemic changes
Laboratory Studies: Elevated LFTs, elevated alcohol level, however lipase normal
Other:
� Review of other/old records: Reviewed previous ER physician recommendation, patient seen here multiple times for alcohol intoxication and alcohol withdrawal
� Clinical information was obtained by an independent historian: n/a
� Prescriptions/Medications Considered but not given: n/a
� Further testing considered but not performed: none
RISK OF COMPLICATIONS AND/OR MORBIDITY OR MORTALITY OF PATIENT MANAGEMENT
� Social determinants of health affecting care: none
� Discussion with other providers:ER attending
� Escalation of care including admission/observation vs risk of discharge considered:
59-year-old male with past medical history of alcohol use disorder, cirrhosis presents emergency department today with an acute alcohol intoxication, sent by parents to seek help with his alcohol use disorder. He also complained of right upper
quadrant pain. His ultrasound is negative for any evidence of cholecystitis, his LFTs are elevated, lipase normal. From medical standpoint, patient is stable for alcohol treatment.
[facility] came and patient is now denying inpatient treatment. Family is being called for transport for him to go home. Patient will be discharged to the care of his family
<Cyn Harper PA-C - Last Filed: 04/14/24 19:49>
*Critical Care Note
Total Time (30-74mins, 75-104mins- exclusive of procedures): Not Applicable
<Cyn Harper PA-C - Last Filed: 04/14/24 19:49>
Update Note
Update Note:
7:28 pm--care transferred to Dr. Ellis. Awaiting [facility].
ED Attending Note
<Ry Ball Rhonda, DO - Last Filed: 04/14/24 19:58>
ED Attending Note
Patient seen and examined by attending physician: Yes
I performed the substantive portion of visit, reviewed & personally made and approve the management plan that is documented in note by myself or FRANCY.: Yes
ED Attending Note:
I evaluated the patient at bedside. The patient's heart rate is in the 90s. He does have abdominal pain and some tenderness�I reviewed old records, unremarkable CT of the abdomen pelvis last month. He states that he wants something to help with
his abdominal pain and wants to stop 'the internal shaking'. We did give some Ativan. White count is normal. Alcohol level is significantly elevated at 418. The patient was later seen by [facility] at 7:45 PM and again refuses any care regarding
alcohol use disorder.
-
Portions of this chart may have been created with voice recognition software.� Occasional wrong word or��sound alike� substitutions may have occurred due to the inherent limitations of voice recognition software.
Discharge Plan
Departure
Patient Disposition: Home (Routine Discharge)
Date of Disposition: 04/14/24
Time of Disposition: 19:49
Patient with high blood pressure during this ER visit?: Yes
Condition: Good
Discharge Problem:
Alcohol intoxication
Prescriptions:
No Action
levothyroxine 100 mcg Tablet
100 mcg PO DAILY
cyclobenzaprine 10 mg Tablet
10 mg PO HS
hydroxyzine HCl 50 mg Tablet
50 mg PO TIDPRN PRN (Reason: anixety)
Ozempic 0.25 mg or 0.5 mg (2 mg/3 mL) Pen Injector
0.25 mg SC CASIANO
Rx Instructions:
for 4 weeks
lorazepam 1 mg tablet
0.5 mg PO HSPRN PRN (Reason: anxiety)
miconazole nitrate [Miconazorb AF] 2 % Powder
1 applic topical BID 10 Days Qty: 85 0RF
hydrocortisone 1 % Cream
1 applic topical BID 10 Days Qty: 10 0RF
folic acid 1 mg Tablet
1 mg PO DAILY 30 Days Qty: 30 1RF
phenobarbital 32.4 mg tablet
97.2 mg PO TID 1 Days Qty: 9 0RF
thiamine HCl (vitamin B1) 100 mg Tablet
100 mg PO BID 30 Days Qty: 60 1RF
acetaminophen [Tylenol Extra Strength] 500 mg Tablet
500 mg PO Q4HPRN MDD 3grams - 6 tablets PRN (Reason: Back pain) Qty: 30 0RF
phenobarbital 32.4 mg Tablet
32.4 mg PO TID 2 Days Qty: 6 0RF
phenobarbital 32.4 mg Tablet
64.8 mg PO TID 2 Days Qty: 12 0RF
pantoprazole 40 mg tablet,delayed release (DR/EC)
40 mg PO DAILY 30 Days Qty: 30 0RF
Referrals:
Shay Strauss MD, Resident [Family Provider] -
Interventions
Interventions:
*Risk Screen - Suicide Last Done: 04/14/24 14:37
*General Assessment Last Done: 04/14/24 14:37
*Neglect/Abuse Screening Last Done: 04/14/24 14:37
ED- Fall Risk Assessment Last Done: 04/14/24 14:37
*ED COVID-19 Vaccine History Last Done: 04/14/24 14:37
ED- Neurological Assessment Last Done: 04/14/24 14:37
ED-Psychological Assessment Last Done: 04/14/24 14:37
Discharge Date and Time
Print Language: DIVEHI
[2024-04-14] MEDS: NSS 500 IV (17:56)
[2024-04-15] VITALS (10 sets, daily range): BP systolic 126–146; BP diastolic 77–97
[2024-04-15] MEDS: ATIVAN 2 MG PO ×2 (00:53→03:43)
--- NOTE | 2024-04-15 01:55 | ED.GENMED ---
History of Present Illness
General
Chief Complaint: Alcohol Problem
Time Seen by Provider: 04/14/24 14:29
Past History
Past History
ED Past Medical History: Hypothyroidism and Other (Bowel obstrucation, Cirrhosis of the liver, Alcohol abuse)
ED Past Surgical History: Other (Ileostomy due to infection located by sepsis, Hernia X 2)
Social History
Tobacco: Non-smoker
Alcohol: Daily
Drug: None
Personal:
Living: alone
Course
Orders/Labs/Results
Orders:
Orders
04/14/24 14:30
EKG- Treatment ONCE
04/14/24 14:31
Alcohol Urgent
Complete Blood Count/With Diff Urgent
Comprehensive Metabolic Panel Urgent
Lipase Urgent
04/14/24 15:05
EKG [Electrocardiogram (*1)] Urgent
Reason for Study: Vertigo / Dizzy
EKG- Treatment ONCE
04/14/24 15:10
US Abdomen Limited Urgent
Comment:
Reason For Exam: right upper quadrant pain
04/14/24 15:24
Lorazepam [Ativan] 2 mg IV NOW STA
04/14/24 17:08
0.9% Sodium Chloride 500 ml [Nss] 500 ml IV BOLUS
04/15/24 00:43
Lorazepam [Ativan] 2 mg PO NOW STA
Abnormal Lab Results
04/14/24
14:31
RBC 3.99 L 10^6/uL
(4.70-6.10)
Hgb 10.7 L g/dL
(13.0-18.0)
Hct 32.2 L %
(39.0-52.0)
MCH 26.8 L pg
(27.0-31.0)
RDW 16.9 H %
(11.5-14.5)
Monocytes % 10.4 H %
(1.7-9.3)
Glucose 110 H mg/dl
(70-99)
AST 67 H U/L
(17-59)
ALT 52 H U/L
(0-50)
Alcohol, Quantitative 418 H* mg/dl
04/14/24 14:31
04/14/24 14:31
Vital Signs
Initial and Last Documented VS:
Initial Vital Signs
BP
146/95
04/14/24 14:29
Last Documented Vital Signs
Temp Pulse Resp BP Pulse Ox
97.6 F 95 20 142/82 95
04/14/24 14:37 04/14/24 23:45 04/14/24 18:03 04/14/24 23:45 04/14/24 23:45
Update Note
Update Note:
Patient reassessed at around 9 PM. Patient now reconsidering and would like some treatment. The care was notified and trying to secure placement
ED Attending Note
-
Portions of this chart may have been created with voice recognition software.� Occasional wrong word or��sound alike� substitutions may have occurred due to the inherent limitations of voice recognition software.
Discharge Plan
Departure
Patient Disposition: Home (Routine Discharge)
Date of Disposition: 04/14/24
Time of Disposition: 19:49
Patient with high blood pressure during this ER visit?: Yes
Condition: Good
Discharge Problem:
Alcohol intoxication
Prescriptions:
No Action
levothyroxine 100 mcg Tablet
100 mcg PO DAILY
cyclobenzaprine 10 mg Tablet
10 mg PO HS
hydroxyzine HCl 50 mg Tablet
50 mg PO TIDPRN PRN (Reason: anixety)
Ozempic 0.25 mg or 0.5 mg (2 mg/3 mL) Pen Injector
0.25 mg SC CASIANO
Rx Instructions:
for 4 weeks
lorazepam 1 mg tablet
0.5 mg PO HSPRN PRN (Reason: anxiety)
miconazole nitrate [Miconazorb AF] 2 % Powder
1 applic topical BID 10 Days Qty: 85 0RF
hydrocortisone 1 % Cream
1 applic topical BID 10 Days Qty: 10 0RF
folic acid 1 mg Tablet
1 mg PO DAILY 30 Days Qty: 30 1RF
phenobarbital 32.4 mg tablet
97.2 mg PO TID 1 Days Qty: 9 0RF
thiamine HCl (vitamin B1) 100 mg Tablet
100 mg PO BID 30 Days Qty: 60 1RF
acetaminophen [Tylenol Extra Strength] 500 mg Tablet
500 mg PO Q4HPRN MDD 3grams - 6 tablets PRN (Reason: Back pain) Qty: 30 0RF
phenobarbital 32.4 mg Tablet
32.4 mg PO TID 2 Days Qty: 6 0RF
phenobarbital 32.4 mg Tablet
64.8 mg PO TID 2 Days Qty: 12 0RF
pantoprazole 40 mg tablet,delayed release (DR/EC)
40 mg PO DAILY 30 Days Qty: 30 0RF
Referrals:
Shay Strauss MD, Resident [Family Provider] -
Interventions
Interventions:
*Risk Screen - Suicide Last Done: 04/14/24 14:37
*General Assessment Last Done: 04/14/24 14:37
*Neglect/Abuse Screening Last Done: 04/14/24 14:37
ED- Fall Risk Assessment Last Done: 04/14/24 14:37
*ED COVID-19 Vaccine History Last Done: 04/14/24 14:37
ED- Neurological Assessment Last Done: 04/14/24 14:37
ED-Psychological Assessment Last Done: 04/14/24 14:37
Discharge Date and Time
Print Language: ROMANIAN
--- NOTE | 2024-04-15 06:51 | EDRN ---
the pt is resting in the stretcher in the lowest position, side rails up x2, call garcia within reach, HOB elevated, no s/s of distress, the pt denies needing anything at this time, VS WNL, MSAS protocol maintained, the pt is going to [place]
today, awaiting on an update from [facility] for a time, this RN offered the pt breakfast and the pt refused, will continue to monitor the pt closely
[2024-04-15] MEDS: ATIVAN 1 MG IV (07:34)
--- NOTE | 2024-04-15 09:06 | EDRN ---
Bcares currently at the pts bedside speaking with the pt, the pt is resting in stretcher in the lowest position, side rails up x1, HOB elevated, no s/s of distress, the pt has been unhooking himself from the gamemaster, BP cuff and Sp02 monitor
and ambulating to the bathroom with no issues, the pt asked for tegaderm for reinforcement of his Right quadrant colostomy, this RN provided tegaderm and assisted the pt with placing it, this RN offered the pt food and the pt stated to this RN that
he doesn't want food, the pt is calm and cooperative with staff, will continue to monitor the pt closely
--- NOTE | 2024-04-15 09:52 | EDRN ---
[facility] stated that there is a bed available for the pt at [facility], awaiting for update on transport for the pt
[2024-04-15] MEDS: ATIVAN 2 MG IV (10:07)
== END 2024-04-15 11:32 | disposition home or self-care (01) ==
LOC: EMR 14:26
PROVIDERS: Physician Assistant; EMERGENCY PHYSICIAN Emergency Medicine; FAMILY PHYSICIAN Student in an Organized Health Care Education/Training Program
DX: F10.129 Alcohol abuse with intoxication, unspecified (principal); R10.11 Right upper quadrant pain; R03.0 Elevated blood-pressure reading, without diagnosis of hypertension
CPT/HCPCS: 99285; 96374; 96361; 96376; 76705; 80053; 82077; 83690; 85025; 93005; 96375

== ENCOUNTER 2024-04-25 19:14 | Emergency (ER) | payer OTHER, SELFPAY ==
[2024-04-25 19:21] VITALS: BP 133/79; BMI 29.6
--- NOTE | 2024-04-25 21:01 | ED.GENMED ---
History of Present Illness
General
Chief Complaint: Alcohol Problem
Source: patient
Time Seen by Provider: 04/25/24 20:40
History of Present Illness
History of Present Illness:
59-year-old male with past medical history of alcohol abuse who presents to the emergency department via EMS intoxicated. Patient says he is here 'because I drank too much.' When asked why he drank too much she says 'because I am stupid.' He
admits to daily drinking. He denies being suicidal. He denies any specific complaints aside from being upset that he drank too much. He denies any drug use. I spoke to the patient's sister who is listed as his primary contact: She says that
patient currently lives at home with his 2 parents who are both 80+ years old. He has a long history of heavy alcohol use. He has been out of detox but unfortunately has not had sustained sobriety. They are becoming increasingly concerned with
his behavior which was the reason that he was sent To the emergency room today. Apparently yesterday he made a vague threat while intoxicated about getting a knife. Parents have been sleeping with their door locked because they are concerned about
his behavior. He has intermittently scream that he is 'afraid to ' and family believes that he may be hallucinating at times. Family is hoping that he could be evaluated by psychiatry.
Past History
Past History
ED Past Medical History: Hypothyroidism and Other (Bowel obstrucation, Cirrhosis of the liver, Alcohol abuse)
ED Past Surgical History: Other (Ileostomy due to infection located by sepsis, Hernia X 2)
Social History
Tobacco: Non-smoker
Alcohol: Daily
Drug: None
Personal:
Living: alone
Review of Systems
Review of Systems
All Other Systems: ROS reviewed and negative except as documented in HPI and ROS
Respiratory: Denies trouble breathing
Cardiac: Denies chest pain
ABD/GI: Denies abdominal pain
: Denies flank pain
Musculoskeletal: Denies neck pain or back pain
Neurological: Denies headache
Psychiatric: Reports anxiety; Denies suicidal
Phy Exam
Physical Exam
Physical Exam:
General: Awake, alert, oriented x3; acutely intoxicated and anxious appearing
Head: Normocephalic, atraumatic
Eyes: Conjunctiva normal, pupils midrange and reactive to light bilaterally
Throat: Airway intact, mucous membranes dry
Neck: Trachea midline
Lungs: Clear to auscultation bilaterally, no wheezing, rales, rhonchi
Heart: Tachycardia with regular rhythm, no murmurs, gallops, or rubs
Abd: Soft, non distended, nontender; ostomy right abdomen with good output; scarring from prior surgeries with incisional hernia soft and reducible
Neuro: No gross deficits
Skin: Flushed but dry, no rash
Extremities: No edema in extremities, warm well-perfused
Scores
Heart Failure Risk
Heart Failure Risk Score: Not Applicable
Heart Score for Chest Pain Patients
STEMI patient?: Not applicable
Withdrawal Assessment of Alcohol
Withdrawal Assessment Completed?: Not applicable
Course
Orders/Labs/Results
Orders:
Orders
04/25/24 20:47
Bedside Glucose- Treatment ONCE
04/25/24 20:55
Alcohol Urgent
Complete Blood Count/With Diff Urgent
Comprehensive Metabolic Panel Urgent
Lipase Urgent
Comment: ADD ON
Manual Differential Urgent
04/25/24 21:00
Drug Screen, Urine [Urine Drug Abuse Screen] Urgent
Date Specimen was Collected: 04/25/24
Time Specimen was Collected: 20:59
04/25/24 21:11
Electrocardiogram (*1) Urgent
Reason for Study: QTc Monitoring
EKG- Treatment ONCE
04/25/24 21:28
Consult Psychiatry [PSYCHIATRY CONSULT] Urgent
Consulting Provider: Stuart Worley
Was physician already notified: Yes
Crisis Consult Routine
Reason for Consult: SI/HI
04/25/24 21:30
Add On- LAB Urgent
Tests Added?: lipase
04/25/24 22:00
0.9% Sodium Chloride 1000 ml [Nss] 1,000 ml Mvi, Adult [Multivitamin] 10 ml Thiamine Injection 100 mg IV 250 mls/hr
Abnormal Lab Results
04/25/24 04/25/24
20:55 21:00
RBC 3.86 L 10^6/uL
(4.70-6.10)
Hgb 10.0 L g/dL
(13.0-18.0)
Hct 31.1 L %
(39.0-52.0)
MCH 25.9 L pg
(27.0-31.0)
MCHC 32.2 L g/dL
(33.0-37.0)
RDW 16.8 H %
(11.5-14.5)
Chloride 112 H mmol/L
(98-107)
Carbon Dioxide 17 L mmol/L
(22-30)
Calcium 8.1 L mg/dl
(8.4-10.2)
Lipase 334 H U/L
(23-300)
Ur Barbiturates Screen Positive H
(Negative)
Ur Tricyclics Screen Positive H
(Negative)
04/25/24 20:55
04/25/24 20:55
Vital Signs
Initial and Last Documented VS:
Initial Vital Signs
Temp Pulse Resp BP Pulse Ox
36.4 C 97 22 133/79 97
04/25/24 19:21 04/25/24 19:21 04/25/24 19:21 04/25/24 19:21 04/25/24 19:21
Last Documented Vital Signs
Temp Pulse Resp BP Pulse Ox
36.4 C 97 22 133/79 97
04/25/24 19:21 04/25/24 19:21 04/25/24 19:21 04/25/24 19:21 04/25/24 19:21
MDM/Problems Addressed
Differential Diagnosis Includes:
Acute alcohol intoxication
MDM/Problems Addressed:
59-year-old male presents acutely intoxicated after admittedly heavy alcohol intake today. Long history of alcohol abuse. Family concerned about recent behavior concern that he may be a threat to himself or others. He denies suicidality or
homicidal ideation. Vitals and exam as above. Certainly at this point he is acutely intoxicated�he does not have decisional capacity to accept or decline psychiatric treatment or detox and certainly does not have decisional capacity to leave the
emergency room at this point in time. Will send basic lab work and alcohol level. Send UDS. Will provide fluids/banana bag. Will monitor here until clinical sobriety. I did speak to our crisis team to perform an assessment once patient is sober
to discuss whether he would like psychiatric treatment and to better assess whether he needs involuntary treatment�his family did express some interest in filing a 302 for involuntary commitment. Will monitor here until clinical sobriety and
reassess psychiatric needs at that point in time.
Labs reviewed: CBC shows stable anemia, CMP slight metabolic acidosis likely related to alcohol. UDS positive for tricyclics of barbiturates. Alcohol level 400. EKG shows acceptable QTc. Patient calm, resting. Continue to monitor until sobriety.
Chronic conditions affecting care:
Alcohol abuse
Acute Exacerbation and/or Progression of Chronic Illness:
Acute alcohol intoxication�treated with fluids, thiamine/folate
Acute dehydration�treated with fluids
*Pulse Oximetry
Patient hypoxic: no
*Critical Care Note
Total Time (30-74mins, 75-104mins- exclusive of procedures): Not Applicable
Data Reviewed
Source: patient, records, family and ambulance crew
Patient Management
Social determinants of health affecting care: Living situation and Substance abuse
Discussion with other providers: Other (Discussed with crisis team, discussed with [facility])
ED Attending Note
-
Portions of this chart may have been created with voice recognition software.� Occasional wrong word or��sound alike� substitutions may have occurred due to the inherent limitations of voice recognition software.
Discharge Plan
Departure
Discharge Problem:
Alcohol intoxication
Prescriptions:
No Action
levothyroxine 100 mcg Tablet
100 mcg PO DAILY
cyclobenzaprine 10 mg Tablet
10 mg PO HS
hydroxyzine HCl 50 mg Tablet
50 mg PO TIDPRN PRN (Reason: anixety)
Ozempic 0.25 mg or 0.5 mg (2 mg/3 mL) Pen Injector
0.25 mg SC CASIANO
Rx Instructions:
for 4 weeks
lorazepam 1 mg tablet
0.5 mg PO HSPRN PRN (Reason: anxiety)
miconazole nitrate [Miconazorb AF] 2 % Powder
1 applic topical BID 10 Days Qty: 85 0RF
hydrocortisone 1 % Cream
1 applic topical BID 10 Days Qty: 10 0RF
folic acid 1 mg Tablet
1 mg PO DAILY 30 Days Qty: 30 1RF
phenobarbital 32.4 mg tablet
97.2 mg PO TID 1 Days Qty: 9 0RF
thiamine HCl (vitamin B1) 100 mg Tablet
100 mg PO BID 30 Days Qty: 60 1RF
acetaminophen [Tylenol Extra Strength] 500 mg Tablet
500 mg PO Q4HPRN MDD 3grams - 6 tablets PRN (Reason: Back pain) Qty: 30 0RF
phenobarbital 32.4 mg Tablet
32.4 mg PO TID 2 Days Qty: 6 0RF
phenobarbital 32.4 mg Tablet
64.8 mg PO TID 2 Days Qty: 12 0RF
pantoprazole 40 mg tablet,delayed release (DR/EC)
40 mg PO DAILY 30 Days Qty: 30 0RF
Referrals:
UNKNOWN - PT NOT,INTERVIEWE [Family Provider] -
Interventions
Interventions:
*Risk Screen - Suicide Last Done: 04/25/24 19:25
*General Assessment Last Done: 04/25/24 19:25
*Neglect/Abuse Screening Last Done: 04/25/24 19:25
*ED COVID-19 Vaccine History Last Done: 04/25/24 19:25
ED- Neurological Assessment Last Done: 04/25/24 19:32
ED-Psychological Assessment Last Done: 04/25/24 19:32
Discharge Date and Time
Print Language: WELSH
[2024-04-25 21:08] LABS: Hematocrit 31.1 % (39.0-52.0); Mean Corp Hgb Conc. 32.2 g/dL (33.0-37.0); Mean Corpuscular Hgb 25.9 pg (27.0-31.0); Mean Corpuscular Volume 80.6 fL (80.0-94.0); Mean Platelet Volume 8.9 fL (7.4-10.4); Platelet Count 171 10^3/uL (130-400); Red Blood Cell Count 3.86 10^6/uL (4.70-6.10); Red Cell Dist. Width 16.8 % (11.5-14.5); White Blood Cell Count 4.9 10^3/uL (4.8-10.8)
[2024-04-25 21:18] LABS: ALT (SGPT) 41 U/L (0-50); AST (SGOT) 51 U/L (17-59); Albumin 4.1 g/dl (3.5-5.0); Alkaline Phosphatase 74 U/L (38-126); Blood Urea Nitrogen 17 mg/dl (9-20); Calcium 8.1 mg/dl (8.4-10.2); Carbon Dioxide 17 mmol/L (22-30); Chloride 112 mmol/L (98-107); Estimated Creatinine Clearance 93 ml/min; Glucose 87 mg/dl (70-99); Potassium 3.8 mmol/L (3.5-5.1); Sodium 144 mmol/L (135-145); Total Bilirubin 0.2 mg/dl (0.2-1.3); Total Protein 6.6 g/dl (6.3-8.2); eGFR > 60.00
[2024-04-25 21:20] LABS: Amphetamines Negative (Negative); Barbiturates Positive (Negative); Benzodiazepines Negative (Negative); Buprenorphine Negative (Negative); Cocaine Negative (Negative); Marijuana Negative (Negative); Methadone Negative (Negative); Methamphetamines Negative (Negative); Opiates Negative (Negative); Phencyclidine Negative (Negative); Tricyclic Antidepressants Positive (Negative)
[2024-04-25 21:24] LABS: Absolute Neutrophils -Man Diff 2.8 10^3/uL (1.4-6.5); Band Neutrophils 1 % (0-3); Eosinophils 1 % (0-6); Lymphocytes 35 % (20-51); Metamyelocytes 1 % (-); Monocytes 5 % (2-9); Normal RBC Morphology Yes; Nucleated Red Blood Cells 1 (-); Platelets Checked Yes; Segmented Neutrophils 57 % (42-75); Total Cells Counted 100
[2024-04-25 21:34] LABS: Alcohol 398 mg/dl
[2024-04-25 21:54] LABS: Lipase 334 U/L (23-300)
[2024-04-25] MEDS: MULTIVITAMIN 1011 MG IV (21:59)
[2024-04-25] MEDS: MULTIVITAMIN 1011 ML IV (21:59)
[2024-04-26 02:44] VITALS: BP 149/77
[2024-04-26 08:50] VITALS: BP 128/82
--- NOTE | 2024-04-26 10:00 | ED.CRISIS ---
ED Crisis Note
ED Crisis Note
Subjective:
Patient calm no behavioral issues
Assessment/Plan:
Discussed with crisis patient seen by psychiatry cleared for discharge
--- NOTE | 2024-04-26 10:32 | CS.PSYCHR ---
Consult Summary - Psychiatry
-
Pt seen, reviewed with Crisis staff. Pt brought in after family called EMS, intoxicated with alcohol. Pt reportedly has a long hx of alcohol abuse. Pt is staying with parents awaiting colostomy reversal. Pt is alert, oriented, calm, cooperative,
sitting up in bed, neatly groomed. He denies any suicidal or homicidal ideation. Pt denies any active mental health problems. He acknowledges problem drinking, but declines referral to treatment/rehab. Alcohol level on arrival to ED was 398.
Psych hx: denies psychiatric treatment
Long hx of alcohol use, rehab in the past
SH: moved back to [place] about 6 months ago, staying with elderly parents. 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
MSE: alert, oriented, calm, cooperative. Speech coherent, thought goal-directed. No signs of psychosis. Mood and affect stable/appropriate. Denies any SI
Imp: Alcohol Use d/o
Rec: Would encourage pt to follow up with alcohol rehab/treatment. Pt appears psychiatrically stable for discharge when medically cleared
--- NOTE | 2024-04-26 10:34 | EDRN ---
Reviewed discharge instructions with patient. Verbalized understanding. Jose from [facility] in speaking to the patient giving him additional list of resources.
[2024-04-26 11:14] VITALS: BP 156/88
== END 2024-04-26 11:15 | disposition home or self-care (01) ==
LOC: EMR 19:14
PROVIDERS: EMERGENCY PHYSICIAN Emergency Medicine; OTHER PHYSICIAN Psychiatry & Neurology Psychiatry
DX: F10.129 Alcohol abuse with intoxication, unspecified (principal); F19.10 Other psychoactive substance abuse, uncomplicated
CPT/HCPCS: 99284; 96365; 96366 ×3; 80053; 80306; 82077; 83690; 85025; 93005

== ENCOUNTER 2024-04-27 13:13 | Emergency (ER) | payer MEDICARE, SELFPAY ==
[2024-04-27] VITALS (10 sets, daily range): BP systolic 118–137; BP diastolic 71–80; BMI 30.4
--- NOTE | 2024-04-27 13:22 | ED.GENMED ---
History of Present Illness
General
Chief Complaint: Alcohol Problem
Source: patient and ambulance crew
Exam Limitations: altered mental status
Time Seen by Provider: 04/27/24 13:19
History of Present Illness
History of Present Illness:
59 yo male states he's here for 'I was drinking.' History of alcohol abuse, reportedly his family called EMS to pick pt up from [facility]. This has occurred in the past.
Hx of hypothyroid, Bowel obstruction, cirrhoisis of liver, ileostomy
Pt presents with slurring of speech, appears intoxicated, denies headache, pain, admits to drinking Vodka 'four pints' unsure of amount or over what period of time.
Past History
Past History
ED Past Medical History: Hypothyroidism and Other (Bowel obstruction, Cirrhosis of the liver, Alcohol abuse)
ED Past Surgical History: Other (Ileostomy due to infection located by sepsis, Hernia X 2)
Social History
Tobacco: Non-smoker
Alcohol: Daily
Drug: None
Personal:
Living: alone
Review of Systems
Review of Systems
Allergies reviewed?: Yes
All Other Systems: ROS reviewed and negative except as documented in HPI and ROS
Constitutional: Denies fever
Respiratory: Denies trouble breathing
Cardiac: Denies chest pain
ABD/GI: Denies abdominal pain, nausea, vomiting or diarrhea
: Denies incontinence
Musculoskeletal: Reports no symptoms
Skin: Reports no symptoms
Neurological: Reports no symptoms
Psychiatric: Denies suicidal
Phy Exam
Physical Exam
Physical Exam:
GENERAL: No acute distress. A&Ox3.
CONSTITUTIONAL: Afebrile.
EYES: clear, conjunctivae normal
ENMT: moist mucus membranes, Pharynx nl
RESPIRATORY: Regular respirations, nonlabored, lungs clear.
CARDIOVASCULAR: Regular rate and rhythm, no murmurs, no rubs.
GI: Soft, nontender, normal BS
MUSCULOSKELETAL: Moves with ease. Well perfused.
SKIN: Warm, dry, pink
PSYCH: Normal mood and affect. Well kept, interactive and appropriate
NEUROLOGIC: Awake, alert and oriented. Speech mildly slurred appears intoxicated. no focal neurological deficits
Scores
Withdrawal Assessment of Alcohol
Withdrawal Assessment Completed?: Yes
Nausea and Vomiting: No nausea and no vomiting
Tactile Disturbances: None
Tremor: No tremor
Auditory Disturbances: Not present
Paroxysmal Sweats: No sweat visible
Visual Disturbances: Not present
Anxiety: Mild anxiety
Headache, Fullness in Head: Not present
Agitation: Moderately fidgety and restless
Orientation and clouding of sensorium: Cannot do serial additions or is uncertain about date
Total CIWA Score: 6
Alcohol Withdrawal Medication Recommendation: Equal to MSAS Score 0-4. Monitor & re-assess q2hrs, NO MEDICATION NEEDED
Course
Orders/Labs/Results
Orders:
Orders
04/27/24 13:30
0.9% Sodium Chloride 1000 ml [Nss] 1,000 ml IV 1,000 mls/hr
04/27/24 13:39
Alcohol Urgent
Complete Blood Count/With Diff Urgent
Comprehensive Metabolic Panel Urgent
Magnesium Urgent
Phosphorus Urgent
Prothrombin Time Urgent
Urinalysis Reflex To Culture Urgent
Date Specimen was Collected: 04/27/24
Time Specimen was Collected: 13:26
04/27/24 15:16
0.9% Sodium Chloride 1000 ml [Nss] 1,000 ml IV BOLUS
04/27/24 15:18
Urine Drug Abuse Screen Urgent
Date Specimen was Collected: 04/27/24
Time Specimen was Collected: 13:26
04/27/24 18:30
Alcohol Urgent
Abnormal Lab Results
04/27/24 04/27/24
13:39 15:18
WBC 4.0 L 10^3/uL
(4.8-10.8)
RBC 4.35 L 10^6/uL
(4.70-6.10)
Hgb 11.4 L g/dL
(13.0-18.0)
Hct 34.3 L %
(39.0-52.0)
MCV 78.9 L fL
(80.0-94.0)
MCH 26.2 L pg
(27.0-31.0)
RDW 16.7 H %
(11.5-14.5)
Absolute Lymphs (auto) 1.1 L 10^3/uL
(1.2-3.4)
Carbon Dioxide 19 L mmol/L
(22-30)
AST 62 H U/L
(17-59)
Urine Ketones 3+ A
(Negative)
Ur Barbiturates Screen Positive H
(Negative)
Ur Tricyclics Screen Positive H
(Negative)
Alcohol, Quantitative 445 H* mg/dl
04/27/24 13:39
04/27/24 13:39
Vital Signs
Initial and Last Documented VS:
Initial Vital Signs
Pulse Resp Pulse Ox
95 21 98
04/27/24 13:23 04/27/24 13:23 04/27/24 13:23
Last Documented Vital Signs
Temp Pulse Resp BP Pulse Ox
97.6 F 104 13 120/78 98
04/27/24 18:19 04/27/24 19:15 04/27/24 19:15 04/27/24 19:00 04/27/24 19:15
MDM/Problems Addressed
MDM/Problems Addressed:
59 yo male with history of alcohol abuse, reportedly his family called EMS to pick pt up from [place] [facility]. Pt has had similar episodes in the past, seen in this ED.
Hx of hypothyroid, Bowel obstruction, cirrhoisis of liver, ileostomy
Pt presents with slurring of speech, denies headache, pain, admits to drinking Vodka 'four pints' unsure of amount or over what period of time.
MSAS Score 4, cannot do serial additions. Pt is calm, cooperative.
Pt here on 04/12/24 for same. Fully evaluated and cleared by Psychiatry at that time. CW involved and pt provided recourses for several rehab facilities and services.
Pt denies SI/HI
Patient expressing remorse at his behavior
CBC with no clinically significant abnormality
CMP normal
Alcohol level 445 mg/dL
UDS +barbiturates, +tricyclics
2:45 p.m.
Pt sleeping
3:10 p.m.
Pt awake. Wants to leave.
He is cooperative, aplologetic
Spoke with sister Phyllis who states pt is not allowed back with his parents. No family to take him in.
She states she and pt were on speaker phone earlier today with [facility]. and he has been accepted but they have no bed available and will contact her when on becomes available.
she's been on the phone with [facility] three times today and still no bed available.
Pt does not want to stay here, he vacillates between saying he will go to rehab and he does not want to go
He is willing to stay until his alcohol level improves
[facility] consult in
5:30 p.m.
Spoke with Pilo from [facility], after lengthy telephone conversation, pt is refusing rehab.
Spoke with sister Phyllis again, she states her dad paid for his hotel room for one night (last night)and refuses to do it again.
Phyllis informed that we will discharge patient. She states [facility] is willing to pick him up as soon as bed available.
Phyllis is calling patient again.
7 p.m.
Pt eating and drinking, OOB and ambulating steadily
Pt states sister never called. She says she did. Asked pt to call his sister at her request, he states he does not want to
Pt seen by case management and given information on resources if homeless
He states he has money and will call [employer] and get a hotel room
After 2 L IVFs, HR 99, no tremors. Pt ate full tray, drinking fluids.
Pt is alert, ambulating with steady gait, chronic alcoholic, mentation is normal, seems clear minded. Wants to leave. Stable for discharge.
Pt ambulated out with normal gait, thanking us for the care.
*Critical Care Note
Total Time (30-74mins, 75-104mins- exclusive of procedures): Not Applicable
ED Attending Note
-
Portions of this chart may have been created with voice recognition software.� Occasional wrong word or��sound alike� substitutions may have occurred due to the inherent limitations of voice recognition software.
Discharge Plan
Departure
Patient Disposition: Home (Routine Discharge)
Date of Disposition: 04/27/24
Time of Disposition: 19:01
Patient with high blood pressure during this ER visit?: No
Condition: Fair
Discharge Problem:
Alcohol dependency
Instructions: Alcohol Use Disorder (DC)
Prescriptions:
No Action
levothyroxine 100 mcg Tablet
100 mcg PO DAILY
cyclobenzaprine 10 mg Tablet
10 mg PO HS
hydroxyzine HCl 50 mg Tablet
50 mg PO TIDPRN PRN (Reason: anixety)
Ozempic 0.25 mg or 0.5 mg (2 mg/3 mL) Pen Injector
0.25 mg SC CASIANO
Rx Instructions:
for 4 weeks
lorazepam 1 mg tablet
0.5 mg PO HSPRN PRN (Reason: anxiety)
miconazole nitrate [Miconazorb AF] 2 % Powder
1 applic topical BID 10 Days Qty: 85 0RF
hydrocortisone 1 % Cream
1 applic topical BID 10 Days Qty: 10 0RF
folic acid 1 mg Tablet
1 mg PO DAILY 30 Days Qty: 30 1RF
phenobarbital 32.4 mg tablet
97.2 mg PO TID 1 Days Qty: 9 0RF
thiamine HCl (vitamin B1) 100 mg Tablet
100 mg PO BID 30 Days Qty: 60 1RF
acetaminophen [Tylenol Extra Strength] 500 mg Tablet
500 mg PO Q4HPRN MDD 3grams - 6 tablets PRN (Reason: Back pain) Qty: 30 0RF
phenobarbital 32.4 mg Tablet
32.4 mg PO TID 2 Days Qty: 6 0RF
phenobarbital 32.4 mg Tablet
64.8 mg PO TID 2 Days Qty: 12 0RF
pantoprazole 40 mg tablet,delayed release (DR/EC)
40 mg PO DAILY 30 Days Qty: 30 0RF
Referrals:
[facility] [Other] - Next open appointment
UNKNOWN - PT NOT,INTERVIEWE [Family Provider] -
Activity Restrictions/Additional Instructions:
As we discussed, keep in contact with [facility] and make arrangement to go there when bed is available.
Interventions
Interventions:
*Risk Screen - Suicide Last Done: 04/27/24 13:27
*General Assessment Last Done: 04/27/24 13:27
*Neglect/Abuse Screening Last Done: 04/27/24 13:27
ED- Fall Risk Assessment Last Done: 04/27/24 13:27
*ED COVID-19 Vaccine History Last Done: 04/27/24 13:27
*Nursing Disposition Last Done: 04/27/24 19:33
ED- Neurological Assessment Last Done: 04/27/24 13:27
ED-Psychological Assessment Last Done: 04/27/24 13:27
Discharge Date and Time
Discharge Date/Time: 04/27/24 19:33
Print Language: SCOTTISH
--- NOTE | 2024-04-27 13:42 | EDRN ---
the pt is resting in stretcher in the lowest position, side rails up x2, call garcia within reach, HOB elevated, no s/s of distress, the pt denies needing anything at this time, no c/o pain, VS WNL, MSAS protocol initiated, the pt was educated on the
use of the call garcia, labs obtained and sent, NSS IVF Bolus hung and running, will continue to monitor the pt closely
[2024-04-27] MEDS: NSS 1000 IV ×2 (13:47→15:29)
--- NOTE | 2024-04-27 13:47 | EDRN ---
this RN noticed that the pts Sp02 dipped to 84% on RA while sleeping, this RN entered the pts room and the pt woke up and the pts Sp02 came up to 89%, this RN notified the provider and placed the pt on 6L NC and Sp02 came up to 98%, the pt denies
having sleep apnea, no c/o chest pain, no c/o SOB, will continue to monitor the pt closely
[2024-04-27 13:50] LABS: % Eosinophils 0.7 % (0-6); % Immature Granulocytes 0.5 % (0-0.5); % Monocytes 7.4 % (1.7-9.3); % Neutrophils 61.4 % (42.2-75.2); Absolute Basophils 0.1 10^3/uL (0-0.2); Absolute Lymphocytes 1.1 10^3/uL (1.2-3.4); Absolute Monocytes 0.3 10^3/uL (0.1-0.6); Absolute Neutrophils 2.5 10^3/uL (1.4-6.5); Hematocrit 34.3 % (39.0-52.0); Hemoglobin 11.4 g/dL (13.0-18.0); Mean Corp Hgb Conc. 33.2 g/dL (33.0-37.0); Mean Corpuscular Hgb 26.2 pg (27.0-31.0); Mean Corpuscular Volume 78.9 fL (80.0-94.0); Mean Platelet Volume 9.4 fL (7.4-10.4); Nucleated Red Blood Cells % 0 % (-); Platelet Count 183 10^3/uL (130-400); Red Blood Cell Count 4.35 10^6/uL (4.70-6.10); Red Cell Dist. Width 16.7 % (11.5-14.5)
[2024-04-27 13:59] LABS: INR 1.05; PT 14.2 Sec (11.4-14.6)
[2024-04-27 14:04] LABS: Blood Urea Nitrogen 14 mg/dl (9-20); Carbon Dioxide 19 mmol/L (22-30); Chloride 105 mmol/L (98-107); Estimated Creatinine Clearance 94 ml/min; Glucose 91 mg/dl (70-99); Potassium 3.9 mmol/L (3.5-5.1); Sodium 144 mmol/L (135-145); eGFR > 60.00
[2024-04-27 14:05] LABS: ALT (SGPT) 44 U/L (0-50); AST (SGOT) 62 U/L (17-59); Albumin 4.8 g/dl (3.5-5.0); Calcium 8.6 mg/dl (8.4-10.2); Magnesium 1.7 mg/dl (1.6-2.3); Phosphorus 3.4 mg/dl (2.5-4.5); Total Bilirubin 0.4 mg/dl (0.2-1.3); Total Protein 7.6 g/dl (6.3-8.2)
[2024-04-27 14:30] LABS: Alcohol 445 mg/dl
[2024-04-27] MEDS: NSS IV ×5 (14:34→18:47)
[2024-04-27 14:39] LABS: Alkaline Phosphatase 90 U/L (38-126)
--- NOTE | 2024-04-27 15:00 | EDRN ---
this RN walked by the pts room and saw the pt standing up on the side of the bed with cafeteria monitor, BP cuff, and Sp02 monitor on and the pts RAC #18 PIV was out and the pt was bleeding, this RN entered the pts room and there was blood all over
the floor, the pt was told to sit on the chair in the pts room, the pt sat down and stated, 'I am so sorry i am so sorry, but i am done with care here i want to go back to the hotel and just sit', this RN stopped the bleeding from the pts RAC site
and placed a pressure dressing, this RN found a house keeping cart and mopped the floor and cleaned up the blood from the floor, this RN notified Yazmin Amin NP who is currently at the pts bedside sitting and talking with the pt who is sitting in the
chair, no s/s of distress, the pts blood alcohol level was noted to be high
--- NOTE | 2024-04-27 15:30 | EDRN ---
the pt is resting in stretcher in the lowest position, side rails up x1, HOB elevated, no s/s of distress, VS WNL, the pt will not keep 02 on, the pt is currently 92-94% on RA, Right Hand #20 PIV placed and NSS 1000cc IVF Bolus hung and running, the
pt was educated on the use of the call garcia, the pt denies needing anything at this time, Yazmin Amin NUT SORTER OPERATOR was speaking to the pt regarding rehab and the pt is not sure if he wants to go, Yazmin Amin NUT SORTER OPERATOR is on the phone with the pts , the pts sister
notified this RN and Yazmin Amin NUT SORTER OPERATOR that the pt was accepted at [facility], this RN will place a call to [facility], will continue to monitor the pt closely
[2024-04-27 15:52] LABS: Urine Albumin Trace (Neg - Trace); Urine Bilirubin Negative (Negative); Urine Character Clear (Clear); Urine Color Yellow; Urine Glucose Negative (Negative); Urine Ketone 3+ (Negative); Urine Leukocyte Negative (Negative); Urine Nitrite Negative (Negative); Urine Occult Blood Negative (Negative); Urine Urobilinogen Negative (Neg - 1+)
[2024-04-27 16:10] LABS: Amphetamines Negative (Negative); Barbiturates Positive (Negative); Benzodiazepines Negative (Negative); Buprenorphine Negative (Negative); Cocaine Negative (Negative); Marijuana Negative (Negative); Methadone Negative (Negative); Methamphetamines Negative (Negative); Opiates Negative (Negative); Phencyclidine Negative (Negative); Tricyclic Antidepressants Positive (Negative)
--- NOTE | 2024-04-27 18:21 | EDRN ---
the pt is resting in stretcher in the lowest position, side rails up x1, HOB elevated, no s/s of distress, VS WNL, the pt remains on the monitor and is agreeable to not pulling at equipment, the pt presses the call garcia appropriately when the pt
needs assistance, alcohol level will be checked again, per [facility] however there is no bed available yet, the pt is not sure if he wants to go, per the pts sister and the pts mother and father, the pt is not allowed to
go to his parents house so the pt will be essentially homeless, Yazmin Amin RECEPTION CLERK at the pts bedside explaining this to the pt, will continue to monitor the pt closely
--- NOTE | 2024-04-27 18:50 | EDRN ---
Yazmin Amin BELT GLASS SANDER was at the pts bedside and spoke with the pt and per the pt he told the provider Yazmin Amin NP that he had money and a ride and a place to stay and that he doesn't want to go to [place] and that he didn't have to, per the provider
Yazmin Amin NP the pt will be discharged after alcohol level comes back
[2024-04-27 19:09] LABS: Alcohol 335 mg/dl
--- NOTE | 2024-04-27 19:16 | CM ---
CM placed for potential homelessness. CM printed out several phone numbers of organizations/resources for patient to call and follow up with. [facility] is closed tonight d/t the low temp not being at 28 degrees or below. CM made
patient aware. His aunt called a few times, and he refused to answer the phone. He also was encouraged to call the Emergency Number for the homeless, which is on the front the packet of information CM gave to patient. The [facility]helters' information and addresses also given to patient.
Patient very grateful for information.
== END 2024-04-27 19:33 | disposition home or self-care (01) ==
LOC: EMR 13:13
PROVIDERS: Registered Nurse; EMERGENCY PHYSICIAN Emergency Medicine
DX: F10.20 Alcohol dependence, uncomplicated (principal); Y90.8 Blood alcohol level of 240 mg/100 ml or more; E03.9 Hypothyroidism, unspecified; K74.60 Unspecified cirrhosis of liver; Z59.89 Other problems related to housing and economic circumstances
CPT/HCPCS: 96360; 99284; 80053; 80306; 81003; 82077; 83735; 84100; 85025; 85610

== ENCOUNTER 2024-04-28 22:08 | Observation (INO) | payer MEDICARE, SELFPAY ==
[2024-04-28 14:52] VITALS: BP 144/89
[2024-04-28 17:49] LABS: % Basophils 1.5 % (0-2); % Eosinophils 1.2 % (0-6); % Immature Granulocytes 0.3 % (0-0.5); % Monocytes 12.2 % (1.7-9.3); % Neutrophils 43.8 % (42.2-75.2); Absolute Basophils 0.1 10^3/uL (0-0.2); Absolute Lymphocytes 1.4 10^3/uL (1.2-3.4); Absolute Monocytes 0.4 10^3/uL (0.1-0.6); Absolute Neutrophils 1.5 10^3/uL (1.4-6.5); Mean Corp Hgb Conc. 32.3 g/dL (33.0-37.0); Mean Corpuscular Hgb 25.6 pg (27.0-31.0); Mean Corpuscular Volume 79.3 fL (80.0-94.0); Mean Platelet Volume 9.1 fL (7.4-10.4); Nucleated Red Blood Cells % 0 % (-); Platelet Count 155 10^3/uL (130-400); Red Blood Cell Count 3.91 10^6/uL (4.70-6.10); Red Cell Dist. Width 17.1 % (11.5-14.5); White Blood Cell Count 3.4 10^3/uL (4.8-10.8)
[2024-04-28 18:07] LABS: ALT (SGPT) 40 U/L (0-50); AST (SGOT) 64 U/L (17-59); Albumin 4.4 g/dl (3.5-5.0); Alkaline Phosphatase 78 U/L (38-126); Blood Urea Nitrogen 5 mg/dl (9-20); Calcium 8.3 mg/dl (8.4-10.2); Carbon Dioxide 24 mmol/L (22-30); Chloride 108 mmol/L (98-107); Glucose 101 mg/dl (70-99); Lipase 290 U/L (23-300); Potassium 3.8 mmol/L (3.5-5.1); Sodium 144 mmol/L (135-145); Total Bilirubin 0.3 mg/dl (0.2-1.3); Total Protein 7.1 g/dl (6.3-8.2); eGFR > 60.00
[2024-04-28 18:16] LABS: Troponin I < 0.012 ng/ml
[2024-04-28 18:18] LABS: Alcohol 399 mg/dl
--- NOTE | 2024-04-28 19:16 | ED.GENMED ---
History of Present Illness
General
Chief Complaint: Alcohol Problem
Source: patient
Exam Limitations: none
Time Seen by Provider: 04/28/24 18:36
Nursing documentation reviewed up to this point in time: agreed with
History of Present Illness
History of Present Illness:
Patient to ED requesting alcohol rehabe. He was seen in ED yesterday for same but decided to eventually leave ED and decline inpatient treatment. Returns tonight apologeticaaly requestingl rehab. Report drinka 'alot of vodka' today but does not
recall exct amt of when he last drank today. Brought to ED via EMS for eval
Past History
Past History
ED Past Medical History: Hypothyroidism and Other (Bowel obstruction, Cirrhosis of the liver, Alcohol abuse)
ED Past Surgical History: Other (Ileostomy due to infection located by sepsis, Hernia X 2)
Social History
Tobacco: Non-smoker
Alcohol: Daily
Drug: None
Personal:
Living: alone
Review of Systems
Review of Systems
Allergies reviewed?: Yes
All Other Systems: ROS reviewed and negative except as documented in HPI and ROS
Constitutional: Reports no symptoms
EENT: Reports no symptoms
Respiratory: Reports no symptoms
Cardiac: Reports no symptoms
ABD/GI: Reports no symptoms
: Reports no symptoms
Musculoskeletal: Reports no symptoms
Skin: Reports no symptoms
Neurological: Reports weakness and other (tremors)
Psychiatric: Reports no symptoms
Phy Exam
General Physical Exam
General Presentation: moderate distress
General age: appears stated age
General Skin: warm and dry
General Habitus: normal
Cardiovascular Exam
Cardiovascular Exam: regular rate/rhythm and no edema
Pulmonary Exam
Pulmonary Exam: lungs clear and no respiratory distress
Gastrointestinal Exam
Gastrointestinal Exam: normal bowel sounds, non tender, soft, no organomegaly and non distended
Musculoskeletal Exam
Musculoskeletal Exam: full ROM and neuro vasc intact
Skin Exam
Skin Exam: normal color and warm/dry
Psychiatric Exam
Psychiatric Exam: anxious (On arrival anxious, tremulous. Given 1mg Atival IV, repeated 2mg 2 hours later. Now resting quietly.)
Scores
Withdrawal Assessment of Alcohol
Withdrawal Assessment Completed?: Yes
Nausea and Vomiting: No nausea and no vomiting
Tactile Disturbances: None
Tremor: Moderate, with patient's arms extended
Auditory Disturbances: Not present
Paroxysmal Sweats: No sweat visible
Visual Disturbances: Not present
Anxiety: Moderately anxious, or guarded, so anxiety is inferred
Headache, Fullness in Head: Not present
Agitation: Moderately fidgety and restless
Orientation and clouding of sensorium: Oriented and can do serial additions
Total CIWA Score: 12
Alcohol Withdrawal Medication Recommendation: Equal to MSAS Score 5-7. Lorazepam 1mg IV or PO NOW & re-assess q2hrs
Course
Orders/Labs/Results
Orders:
Orders
04/28/24 17:14
EKG [Electrocardiogram (*1)] Urgent
Reason for Study: Chest Pain
04/28/24 17:15
EKG- Treatment ONCE
04/28/24 17:34
Alcohol Urgent
Complete Blood Count/With Diff Urgent
Comprehensive Metabolic Panel Urgent
Lipase Urgent
Troponin I Urgent
04/28/24 19:26
0.9% Sodium Chloride 1000 ml [Nss] 1,000 ml IV BOLUS
Lorazepam [Ativan] 1 mg IV NOW STA
04/28/24 20:20
Lorazepam [Ativan] 2 mg IV NOW STA
04/28/24 21:57
Admit/Transfer Patient As Directed
Co-Sign Provider:
Level of Care: Observation services
Assign to:: Telemetry
Physician / Group: anusha
Diagnosis: alcohol withdrawal
Reason for Telemetry: Arrhythmia
Date to Stop Telemetry: 05/01/24
Time to Stop Telemetry: 11:00
04/28/24 21:58
Code Status As Directed
Resuscitation Status: Full Code
PRN Pain Medication Management As Directed
May give lesser potent ordered pain med per pt: Yes
preference::
Protocol:: Medication orders for pain may be administered in a
manner that supports deferring to patient preference
when the pt is:
- Requesting an ordered lesser potent pain medication.
Least to most potent pain medications are defined
as: acetaminophen < NSAID < tramadol < opioids
(morphine, oxycodone, hydromorphone).
- Requesting a lesser dose of the same medication IF
ORDERED.
- Requesting a less intrusive route of administration
if both routes are prescribed by the provider (PO <
IV).
04/28/24 22:00
Flush (0.9% Sodium Chloride) [Flush (Nss)] See Dose Instructions IV PER PROTOCOL
05/01/24 11:00
DC Protocol for Telemetry ONCE
Abnormal Lab Results
04/28/24
17:34
WBC 3.4 L 10^3/uL
(4.8-10.8)
RBC 3.91 L 10^6/uL
(4.70-6.10)
Hgb 10.0 L g/dL
(13.0-18.0)
Hct 31.0 L %
(39.0-52.0)
MCV 79.3 L fL
(80.0-94.0)
MCH 25.6 L pg
(27.0-31.0)
MCHC 32.3 L g/dL
(33.0-37.0)
RDW 17.1 H %
(11.5-14.5)
Monocytes % 12.2 H %
(1.7-9.3)
Chloride 108 H mmol/L
(98-107)
BUN 5 L mg/dl
(9-20)
Glucose 101 H mg/dl
(70-99)
Calcium 8.3 L mg/dl
(8.4-10.2)
AST 64 H U/L
(17-59)
04/28/24 17:34
04/28/24 17:34
Vital Signs
Initial and Last Documented VS:
Initial Vital Signs
Temp Pulse Resp BP Pulse Ox
98.5 F 96 18 144/89 97
04/28/24 14:52 04/28/24 14:52 04/28/24 14:52 04/28/24 14:52 04/28/24 14:52
Last Documented Vital Signs
Temp Pulse Resp BP Pulse Ox
98.5 F 91 18 117/71 95
04/28/24 14:52 04/28/24 21:45 04/28/24 21:45 04/28/24 21:00 04/28/24 21:45
*Critical Care Note
Total Time (30-74mins, 75-104mins- exclusive of procedures): Not Applicable
Update Note
Update Note:
Patient states he is commited to entering inpatient facility for alcohol rehab. Spoke wtih Kacey who interviewed patient bedside. Unable to get placement for tonight. He is resting comfortabley after IV ativan and fluids. WIll admit to
hospitalist service for alcohol withdrawal. [facility] attempting to secure placement
ED Attending Note
-
Portions of this chart may have been created with voice recognition software.� Occasional wrong word or��sound alike� substitutions may have occurred due to the inherent limitations of voice recognition software.
Discharge Plan
Departure
Patient Disposition: Admit
Date of Disposition: 04/28/24
Time of Disposition: 21:21
Presentation/result/management discussed w/ accepting MD/DO: Hospitalist
Condition: Fair
Covid-19: Not Applicable
Discharge Problem:
Alcohol withdrawal
Interventions
Interventions:
*Risk Screen - Suicide Last Done: 04/28/24 14:52
*General Assessment Last Done: 04/28/24 14:52
*Neglect/Abuse Screening Last Done: 04/28/24 14:52
*ED COVID-19 Vaccine History Last Done: 04/28/24 14:52
ED- Neurological Assessment Last Done: 04/28/24 20:16
ED-Psychological Assessment Last Done: 04/28/24 20:16
[2024-04-28] MEDS: NSS 1000 IV ×2 (19:42→23:16)
[2024-04-28] MEDS: ATIVAN 1 MG IV (19:44)
[2024-04-28 20:07] VITALS: BP 115/80
[2024-04-28 21:00] VITALS: BP 117/71
[2024-04-28] MEDS: ATIVAN 2 MG IV (21:37)
[2024-04-28 22:00] VITALS: BP 119/74
--- NOTE | 2024-04-28 22:00 | HPS.HSE ---
Family Physician
-
Family Physician: INTERVIEWE UNKNOWN - PT NOT
Chief Complaint
-
alcohol withdrawal
History of Present Illness
59-year-old male past medical history of alcohol use disorder, pancytopenia, esophageal varices with bleeding, anemia, bowel obstruction status post ileostomy, Fox's thyroiditis, hypothyroidism, anxiety, presenting with alcohol withdrawal. He
presents to the emergency requesting alcohol rehab. He came to the emergency room yesterday but decided to leave and declined inpatient treatment.
He states that he feels symptoms of withdrawal including shakiness, nausea and anxiety for the past 2 to 3 days. Denies vomiting. Denies blood in stool. Denies abdominal pain. He drinks 1.5 to 2 pints of vodka every day which he last drank 2 to
3 days ago.
Denies chest pain or diarrhea.
Medical History
Past Medical History
Past Medical History: Reports Other ( alcohol use disorder, pancytopenia, esophageal varices with bleeding, anemia, bowel obstruction status post ileostomy, Fox's thyroiditis, hypothyroidism, anxiety,)
Past Surgical History: Reports Other ((Ileostomy due to infection located by sepsis, Hernia X 2))
Social History
Tobacco: Non-smoker
Alcohol: Daily
Drug: None
Family History
Family History: Not pertinent
Allergies / Home Medications
Allergies reflects when Allergies were last updated in [facility].
Home Medications with original date entered in [facility]
Allergy/Medication List:
Allergies
Allergy/AdvReac Type Severity Reaction Status Date / Time
No Known Allergies Allergy Verified 04/28/24 14:54
Home Medications
levothyroxine 100 mcg tablet 100 mcg PO DAILY Thyroid 07/01/23
cyclobenzaprine 10 mg tablet 10 mg PO HS Muscle Spasms 02/29/24
hydroxyzine HCl 50 mg tablet 50 mg PO TIDPRN PRN anixety 02/29/24
lorazepam 1 mg tablet 0.5 mg PO HSPRN PRN anxiety 02/29/24
semaglutide 0.25 mg or 0.5 mg (2 mg/3 mL) subcutaneous pen injector (Ozempic) 0.25 mg SC CASIANO weight loss 02/29/24
acetaminophen 500 mg tablet (Tylenol Extra Strength) 500 mg PO Q4HPRN PRN Back pain #30 tabs 03/26/24
folic acid 1 mg tablet 1 mg PO DAILY 30 days #30 tabs 03/26/24
hydrocortisone 1 % topical cream 1 applic topical BID 10 days #10 grams 03/26/24
miconazole nitrate 2 % topical powder (Miconazorb AF) 1 applic topical BID 10 days #85 grams 03/26/24
pantoprazole 40 mg tablet,delayed release 40 mg PO DAILY 30 days #30 tabs 03/26/24
phenobarbital 32.4 mg tablet 32.4 mg PO TID 2 days #6 tabs 03/26/24
phenobarbital 32.4 mg tablet 64.8 mg (2 x 32.4 mg) PO TID 2 days #12 tabs 03/26/24
phenobarbital 32.4 mg tablet 97.2 mg (3 x 32.4 mg) PO TID 1 day #9 tabs 03/26/24
thiamine HCl (vitamin B1) 100 mg tablet 100 mg PO BID 30 days #60 tabs 03/26/24
Review of Systems
-
History Source: Patient
A 12 point ROS was completed and negative except as noted: Yes
Constitutional: Reports No Symptoms
EENT: Reports No Symptoms
Respiratory: Reports No Symptoms
Cardiac: Reports No Symptoms
Abdomen/GI: Reports No Symptoms
: Reports No Symptoms
Musculoskeletal: Reports No Symptoms
Skin: Reports No Symptoms
Neurological: Reports No Symptoms
Endocrine: Reports No Symptoms
Hematologic/Lymphatic: Reports No Symptoms
Psych: Reports No Symptoms
Physical Exam
Vital Signs
Vital Signs
Temp Pulse Resp BP Pulse Ox
98.5 F 91 18 117/71 95
04/28/24 14:52 04/28/24 21:45 04/28/24 21:45 04/28/24 21:00 04/28/24 21:45
Physical Exam
General: Well Developed, Well Nourished and No Apparent Distress
HEENT: NormoCephalic, Moist mucous membranes and Atraumatic
Respiratory: Clear
Cardiac: S1/S2 and Regular Rhythm; No Murmur or Rub
GI: Soft, Non Tender, Non Distended and Normal Bowel Sounds; No Organomegaly
Rectal: Deferred by Provider
Musculoskeletal: No Clubbing, No Cyanosis and No Edema
Skin: No Rash
Neuro: Nonfocal/grossly intact
Laboratory Results
-
04/28/24 17:34
04/28/24 17:34
Laboratory Results
Total Bilirubin 0.3 mg/dl (0.2-1.3) 04/28/24 17:34
AST 64 U/L (17-59) H 04/28/24 17:34
ALT 40 U/L (0-50) 04/28/24 17:34
Alkaline Phosphatase 78 U/L (38-126) 04/28/24 17:34
Troponin I < 0.012 ng/ml 04/28/24 17:34
Lipase 290 U/L (23-300) 04/28/24 17:34
Data Reviewed
-
Lab Data: Labs Reviewed by me
Old Records: Reviewed
Impression/Plan
-
IMPRESSION:
PLAN:
# Alcohol withdrawal
-IV fluids
-Thiamine folate
-Alcohol withdrawal protocol
-Patient states he is interested in inpatient rehab
Pancytopenia secondary to alcohol use
-Stable
History of esophageal varices with bleeding
Bowel obstruction status post ileostomy
Fox's thyroiditis/hypothyroidism
-Continue levothyroxine 100 mcg
Anxiety
Full code
DVT prophylaxis heparin
Regular diet
[2024-04-28 23:01] VITALS: BP 123/80
[2024-04-29] VITALS: BP 117/74
[2024-04-29 01:00] VITALS: BP 115/74
[2024-04-29 02:00] VITALS: BP 117/77
[2024-04-29 03:00] VITALS: BP 129/79
[2024-04-29 04:00] VITALS: BP 122/78
[2024-04-29] MEDS: SYNTHROID 100 MCG PO (06:24)
[2024-04-29 06:48] LABS: % Basophils 1.5 % (0-2); % Eosinophils 1.8 % (0-6); % Immature Granulocytes 0.3 % (0-0.5); % Lymphocytes 24.3 % (20.5-51.1); % Neutrophils 62.1 % (42.2-75.2); Absolute Basophils 0.1 10^3/uL (0-0.2); Absolute Eosinophils 0.1 10^3/uL (0-0.7); Absolute Lymphocytes 0.8 10^3/uL (1.2-3.4); Absolute Monocytes 0.3 10^3/uL (0.1-0.6); Absolute Neutrophils 2.1 10^3/uL (1.4-6.5); Hematocrit 28.6 % (39.0-52.0); Hemoglobin 9.2 g/dL (13.0-18.0); Mean Corp Hgb Conc. 32.2 g/dL (33.0-37.0); Mean Corpuscular Hgb 25.9 pg (27.0-31.0); Mean Corpuscular Volume 80.6 fL (80.0-94.0); Mean Platelet Volume 9.3 fL (7.4-10.4); Nucleated Red Blood Cells % 0 % (-); Platelet Count 126 10^3/uL (130-400); Red Blood Cell Count 3.55 10^6/uL (4.70-6.10); Red Cell Dist. Width 17.3 % (11.5-14.5); White Blood Cell Count 3.4 10^3/uL (4.8-10.8)
[2024-04-29 07:11] LABS: ALT (SGPT) 37 U/L (0-50); AST (SGOT) 60 U/L (17-59); Albumin 3.8 g/dl (3.5-5.0); Alkaline Phosphatase 72 U/L (38-126); Blood Urea Nitrogen 5 mg/dl (9-20); Calcium 7.8 mg/dl (8.4-10.2); Carbon Dioxide 23 mmol/L (22-30); Chloride 108 mmol/L (98-107); Estimated Creatinine Clearance 123 ml/min; Glucose 96 mg/dl (70-99); Potassium 3.8 mmol/L (3.5-5.1); Sodium 141 mmol/L (135-145); Total Bilirubin 0.4 mg/dl (0.2-1.3); Total Protein 6.3 g/dl (6.3-8.2); eGFR > 60.00
[2024-04-29] MEDS: HEPARIN 5000 UNITS SC (08:09)
[2024-04-29] MEDS: FOLVITE 1 MG PO (08:10)
[2024-04-29] MEDS: THIAMINE INJECTION 200 MG IV (08:10)
[2024-04-29] MEDS: NSS 1000 IV (08:10)
[2024-04-29 09:57] LABS: Iron 61 ug/dl (49-181); Magnesium 1.4 mg/dl (1.6-2.3)
[2024-04-29 10:06] LABS: Percent Saturation 13 % (20-50); Total Iron Binding Capacity 441 ug/dl (261-462)
--- NOTE | 2024-04-29 10:14 | W.PN.HOSP.TC ---
Addendum entered and electronically signed by Sergio Peoples MD 04/29/24 10:16:
Hypomagnesemia replace
Iron deficiency-IV iron
Original Note:
Today's Communication/Plan
-
Watch for withdrawal and treat withdrawal
Phenobarbital taper
Psychiatric valuation
Case management for discharge planning
Get old records from [facility]
Assessment / Plan
Assessment / Plan
59-year-old male with alcohol withdrawal came to ER requesting alcohol rehab has been shaking had nausea and anxiety drinks 1.5 to 2 pints of vodka every day. 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
with parents.
Mild tremors noted
Cardiovascular system S1-S2 appreciated
Chest clear to auscultation
Abdomen soft nontender
No pedal edema
# Alcohol abuse with withdrawal
Alcohol level 399 on admission
Says he is interested in inpatient rehab
Alcohol withdrawal protocol and thiamine
[facility] referral
Case management to look for drug and alcohol program and eventually AA
He was at rehabs in [place] and [place] about 6 months ago
We will start a phenobarbital taper
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 Check iron studies and B12
# History of cirrhosis from before which is unclear
Ultrasound from 04/14/2024 sonographic features consistent with cirrhosis-patient made aware about this and the need for follow-up
# History of bile obstruction with resection end ileostomy
# Fox's thyroiditis with hypothyroidism-continue Synthroid 100 mcg-he states that his TSH is always high however he is compliant with taking medicines. We discussed that for hypothyroidism we follow TSH and adjust as needed. I question his
compliance if his TSH is always high.
Check TSH
# Anxiety-on lorazepam 0.5 mg at bedtime as needed
# Right upper lobe nodules-detected on a CT 04/23/2023-needs outpatient follow-up and repeat CT in 3 to 6 months
# Sleep apnea
# Obesity per BMI criteria
# DVT prophylaxis-subcutaneous heparin
# Full code
D/W RN at bed side
Anticipated Discharge: 24 - 48 hours
Subjective/Interval History
-
Date of Service: April 29, 2024
Objective Data
-
Labs:
Laboratory Results
04/29/24
06:36
WBC 3.4 L
Hgb 9.2 L
Hct 28.6 L
Plt Count 126 L
Sodium 141
Potassium 3.8
Chloride 108 H
Carbon Dioxide 23
BUN 5 L
Creatinine 0.7
Glucose 96
Calcium 7.8 L
Total Bilirubin 0.4
AST 60 H
ALT 37
Alkaline Phosphatase 72
Vital Signs:
Vital Signs
Temp Pulse Resp BP Pulse Ox
97.6 F 107 22 122/78 95
04/28/24 22:57 04/29/24 04:45 04/29/24 04:45 04/29/24 04:00 04/29/24 04:57
I&O
04/28/24 04/29/24 04/30/24
06:59 06:59 06:59
Intake Total 200 / 200 300 / 300
Output Total 275 / 275 400 / 400
Balance -75 / -75 -100 / -100
--- NOTE | 2024-04-29 10:30 | CM ---
Addendum entered by Amadna Becker RN 04/29/24 13:31:
CM updated patient and father that patient can be discharged to [facility]. CM confirmed plan with Tammy from [facility]. Tammy will send an Uber for patient at 4pm. Patient is in agreement with plan.
Hospitalist will discharge.
CM updated patient's bedside RN.
Addendum entered by Amanda Becker RN 04/29/24 13:10:
GLENDY spoke with Tammy at [facility] and she confirmed they are able to accept patient.
Addendum entered by Amanda Becker RN 04/29/24 13:07:
CM was updated by patient's father they he secured a bed at [facility]. CM updated hospitalist that patient is requesting transfer to [facility].
Original Note:
GLENDY spoke with Pierre from [facility]. Pierre stated that patient is currently being followed by [facility]. CM will await update.
[2024-04-29] MEDS: ATIVAN 1 MG PO ×2 (11:01→14:27)
[2024-04-29] MEDS: PROTONIX 40 MG PO (11:01)
[2024-04-29 11:35] LABS: Vitamin D, 25-OH*** < 12.8 ng/mL (30-80)
--- NOTE | 2024-04-29 12:06 | CON.MD ---
Consultation - Medical
-
patient seen chart reviewed. spoke with nursing. 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 he had come earlier this week to the ED but left. he was trying to get sober himself and made it for one and
one half weeks before relapsing a few days ago thinking that for some reason he could now control his drinking. he has a bal currently of 399. he has decided he needs to get sober at this point and is being admitted for detox with a plan to do in
pt rehab. he does NOT feel depression other mood disorder or anxiety underlie his addiction. he reports drinking from his teen years and intake of etoh accelerating gradually. he did have three plus years of sobriety prior to the start of the
pandemic. he has a number of medical issues related to his etoh abuse. see below. patient currently drinks one to two pints of vodka daily last use 2 days ago
past psych hx no prior psych rx. patient was seen here at [facility] in february of 2024. in pt rx recommended but he refused and he was considering then a sober house w o/p treatment which did not materialize.
medical hx patient w a number of abn labs. dec calcium mgt and vit d bp okay tachy this am w hr 107. afebrile. he did not seem to be wd but it is likely too soon as bal 399. (nor did he appear intoxicated) patient w hx hashimotos takes
synthroid cervical and lumbar radiculopathy ruptured gut has ileostomy reversal eventually hx cirrhosis psa hx anemia and pancytopenia perhaps secondary to etoh fe def noted in chart b12 pending esophageal varices
fh denied
substance abuse see above severe etoh use d/o denies other use
social worked as chiropractor til ileostomy lived [place] now lives w parents. .
mse alert ox3 cooperative pleasant speech and thought process nl does not appear intox or withdrawing mood is euthymic affect ok no si no hi aver intellig insight judgment fair
dx etoh use disorder severe
plan patient agreeable to in pt rx. he has already seen kristine from [facility] who will arrange. continue phenobarb detox and msas. patient does not need additional psychotropic medications. does not appear to have mood d.o or psychosis. would
replete vitamin d check b12 psych signing off.
[2024-04-29] MEDS: MAGNESIUM SULFATE 50 IV (13:14)
--- NOTE | 2024-04-29 14:20 | CM ---
Addendum entered by Amanda Becker RN 04/29/24 17:33:
GLENDY updated Tammy at [facility] admissions with authorization. Tammy set up a 4pm Uber to assist with transportation. As per hospitalist, she wanted patient to be transferred via BLS as he has a phenobarbital dose. Patient's Uber is available
and he would like to be transferred via Uber to [facility]. Patient signed out AMA.
GLENDY spoke with [facility] transportation museum helper for Acute Care. Patient would not have qualified for BLS transport.
Original Note:
GLENDY called [facility] and obtained authorization for 5 days Level 4 detox. Gypsy Rizzo at [facility] gave a LCD of 05/03. CM left for Tammy in admissions at [facility]
[2024-04-29 14:21] VITALS: BP 153/88
[2024-04-29] MEDS: PHENOBARBITAL 97.5 MG IV (15:26)
--- NOTE | 2024-04-29 15:30 | W.PN.UPDATE ---
Update Note
Progress Note Update
Accepted to [facility] they can do phenobarbital taper there.
They do not need a prescription. Will also do as needed Ativan for withdrawal symptoms.
will discharge
More than 30 minutes spent in discharge including
Final examination of the patient
Summarizing hospital stay
Instructions for continuing care to all relevant caregivers
Preparation of discharge records, prescriptions, and referral forms
Total time spent (in minutes): 38 min
With visits and preparing discharge and dictation and discussions with case management and nursing
--- NOTE | 2024-04-29 15:42 | W.PN.UPDATE ---
Update Note
Progress Note Update
TSH was added on to the labs at 8:48 this morning. But still not running. At this time it is too late to order. Will have patient do it at the rehab.
--- NOTE | 2024-04-29 15:50 | W.DS.TRANS ---
Addendum entered and electronically signed by Sergio Peoples MD 04/29/24 16:33:
Dictation- [id number]
Original Note:
DC Summary - [employer]
-
Discharge Instructions:
Discharge Diagnosis/Procedures History of alcohol abuse with withdrawal
Pancytopenia
Fox's thyroiditis
History of ileostomy
Anxiety
Right upper lobe nodule
Vitamin D deficiency
Diet As tolerated
Activity As tolerated
Driving Restrictions No driving
Blood Work TSH, BMP and magnesium levels to be followed in
the rehab
Instructions:
Stand-Alone Forms:
Changes to Home Medications: Yes
Discharge Medications:
DC Medications w/original date entered in [employer]
levothyroxine 100 mcg tablet 100 mcg PO DAILY Thyroid 07/01/23
miconazole nitrate 2 % topical powder (Miconazorb AF) 1 applic topical BID 10 days #85 grams 03/26/24
cholecalciferol (vitamin D3) 50 mcg (2,000 unit) tablet 50 mcg PO DAILY Supplement #0 tabs 04/29/24
lorazepam 1 mg tablet 1 mg PO Q2HPRN PRN alcohol withdrawal #20 tabs 04/29/24
magnesium oxide 500 mg PO DAILY Electrolyte Repletion #30 tabs 04/29/24
pantoprazole 40 mg tablet,delayed release 40 mg PO DAILY Gastrointestinal issue #30 tabs 04/29/24
phenobarbital 32.4 mg tablet 32.4 mg PO TID alcohol withdrawal #6 tabs 04/29/24
phenobarbital 32.4 mg tablet 64.8 mg (2 x 32.4 mg) PO TID alcohol withdrawal #12 tabs 04/29/24
phenobarbital 97.2 mg tablet 97.2 mg PO Q8H alcohol withdrawal #5 tabs 04/29/24
thiamine HCl (vitamin B1) 100 mg tablet 100 mg PO BID alcohol 30 days #60 tabs 04/29/24
Home Medication Changes
new
lorazepam 1 mg tablet 1 mg PO Q2HPRN PRN alcohol withdrawal #20 tabs 04/29/24
magnesium oxide 500 mg PO DAILY Electrolyte Repletion #30 tabs 04/29/24
pantoprazole 40 mg tablet,delayed release 40 mg PO DAILY Gastrointestinal issue #30 tabs 04/29/24
phenobarbital 32.4 mg tablet 32.4 mg PO TID alcohol withdrawal #6 tabs 04/29/24
phenobarbital 32.4 mg tablet 64.8 mg (2 x 32.4 mg) PO TID alcohol withdrawal #12 tabs 04/29/24
phenobarbital 97.2 mg tablet 97.2 mg PO Q8H alcohol withdrawal #5 tabs 04/29/24
thiamine HCl (vitamin B1) 100 mg tablet 100 mg PO BID alcohol 30 days #60 tabs 04/29/24
Pending Results: No
--- NOTE | 2024-04-29 16:14 | W.PN.UPDATE ---
Update Note
Progress Note Update
I came to know that the patient is living in an Uber. Since he just got phenobarbitone I felt that he should go into BLS. Discussed this with bilingual case manager and nursing. By the time his overhead arrived and patient was really wanting to leave. I
discussed with him about my concern. He signed an AMA form. He was given papers for discharge regardless. He understands that he is taking the responsibility of leaving uber and ramifications
[2024-04-29 16:46] LABS: Ferritin 9.6 ng/ml (17.9-464.0)
[2024-04-29 17:00] LABS: Vitamin B12 578 pg/ml (239-931)
== END 2024-04-29 19:30 | disposition left against medical advice (07) ==
LOC: ED 22:08
PROVIDERS: Student in an Organized Health Care Education/Training Program; ADMITTING PHYSICIAN Hospitalist; ATTENDING PHYSICIAN Hospitalist; CONSULT PHYSICIAN Psychiatry & Neurology Psychiatry; EMERGENCY PHYSICIAN Emergency Medicine
DX: F10.139 Alcohol abuse with withdrawal, unspecified (principal); R25.1 Tremor, unspecified; R53.1 Weakness; E06.3 Autoimmune thyroiditis; Y90.8 Blood alcohol level of 240 mg/100 ml or more; R94.31 Abnormal electrocardiogram [ECG] [EKG]; R91.1 Solitary pulmonary nodule; E66.9 Obesity, unspecified; E83.42 Hypomagnesemia; G47.30 Sleep apnea, unspecified; K74.60 Unspecified cirrhosis of liver; F41.9 Anxiety disorder, unspecified; D61.818 Other pancytopenia; D64.9 Anemia, unspecified; Z59.02 Unsheltered homelessness; Z79.890 Hormone replacement therapy; Z93.2 Ileostomy status; Z79.85 Long-term (current) use of injectable non-insulin antidiabetic drugs; Z87.19 Personal history of other diseases of the digestive system; Z68.31 Body mass index [BMI] 31.0-31.9, adult; Z60.2 Problems related to living alone; Z53.29 Procedure and treatment not carried out because of patient's decision for other reasons
CPT/HCPCS: 80053; 82077; 82306; 82607; 82728; 83540; 83550; 83690; 83735; 84484; 85025; 93005; 96361; 96374; 96376; 99284; G0378; J2916

== ENCOUNTER 2024-05-18 01:44 | Emergency (ER) | payer MEDICARE, SELFPAY ==
[2024-05-18] VITALS (7 sets, daily range): BP systolic 137–151; BP diastolic 81–99; BMI 30.4
[2024-05-18 02:14] LABS: % Basophils 0.9 % (0-2); % Eosinophils 0.7 % (0-6); % Immature Granulocytes 0.2 % (0-0.5); % Monocytes 12.7 % (1.7-9.3); % Neutrophils 68.5 % (42.2-75.2); Absolute Lymphocytes 0.8 10^3/uL (1.2-3.4); Absolute Monocytes 0.6 10^3/uL (0.1-0.6); Hematocrit 29.4 % (39.0-52.0); Hemoglobin 9.7 g/dL (13.0-18.0); Mean Corpuscular Volume 75.8 fL (80.0-94.0); Mean Platelet Volume 8.9 fL (7.4-10.4); Nucleated Red Blood Cells % 0 % (-); Platelet Count 192 10^3/uL (130-400); Red Blood Cell Count 3.88 10^6/uL (4.70-6.10); Red Cell Dist. Width 18.3 % (11.5-14.5); White Blood Cell Count 4.4 10^3/uL (4.8-10.8)
[2024-05-18] MEDS: ATIVAN 1 MG IV ×2 (02:38→03:32)
[2024-05-18] MEDS: ZOFRAN 4 MG IV (02:38)
[2024-05-18 02:41] LABS: ALT (SGPT) 44 U/L (0-50); AST (SGOT) 85 U/L (17-59); Albumin 4.4 g/dl (3.5-5.0); Alkaline Phosphatase 83 U/L (38-126); Blood Urea Nitrogen 13 mg/dl (9-20); Calcium 8.5 mg/dl (8.4-10.2); Carbon Dioxide 25 mmol/L (22-30); Chloride 101 mmol/L (98-107); Estimated Creatinine Clearance 94 ml/min; Glucose 102 mg/dl (70-99); Potassium 3.7 mmol/L (3.5-5.1); Sodium 140 mmol/L (135-145); Total Bilirubin 0.8 mg/dl (0.2-1.3); eGFR > 60.00
[2024-05-18 02:42] LABS: Alcohol 10 mg/dl
[2024-05-18] MEDS: MULTIVITAMIN 1011 MG IV (03:22)
[2024-05-18] MEDS: MULTIVITAMIN 1011 ML IV (03:22)
--- NOTE | 2024-05-18 05:42 | ED.GENMED ---
History of Present Illness
General
Chief Complaint: Withdrawal Symptoms
Source: patient
Time Seen by Provider: 05/18/24 03:24
History of Present Illness
History of Present Illness:
59-year-old male presents to the emergency room due to feeling he is withdrawing from alcohol. Patient was in a [facility] senior care this evening. He was observed there to have the above symptoms. Patient states he has not had a drink for 2 days.
Typically he drinks about 3 L of vodka a week. No fever or chills. He is nauseous but not vomiting.
Past History
Past History
ED Past Medical History: Hypothyroidism and Other (Bowel obstruction, Cirrhosis of the liver, Alcohol abuse)
ED Past Surgical History: Other (Ileostomy due to infection located by sepsis, Hernia X 2)
Social History
Tobacco: Non-smoker
Alcohol: Daily
Drug: None
Personal:
Living: alone
Phy Exam
Physical Exam
Physical Exam:
General: Awake, Alert, Oriented X3. Mildly jittery
Vitals: unremarkable
Head: Atraumatic
Eyes: Pupils equal, EOMI
Throat: Airway intact, no exudates
Neck: Trachea midline
Lungs: Clear and equal b/l
Heart: Regular rate, no murmurs
Abd: Soft, Nontender, No pulsatile mass
Neuro: Nonfocal
Skin: Warm, dry, no rash
Extremities: pulses equal b/l, no edema
Course
Orders/Labs/Results
Orders:
Orders
05/18/24 01:57
Electrocardiogram (*1) Urgent
Reason for Study: Tachycardia
05/18/24 01:58
EKG- Treatment ONCE
05/18/24 02:01
Alcohol Urgent
Complete Blood Count/With Diff Urgent
Comprehensive Metabolic Panel Urgent
05/18/24 02:31
Lorazepam [Ativan] 1 mg IV NOW STA
Ondansetron Injectable [Zofran] 4 mg IV NOW STA
05/18/24 03:15
0.9% Sodium Chloride 1000 ml [Nss] 1,000 ml Mvi, Adult [Multivitamin] 10 ml Thiamine Injection 100 mg IV Wide Open mls/hr
05/18/24 03:28
Lorazepam [Ativan] 1 mg IV NOW STA
Abnormal Lab Results
05/18/24
02:01
WBC 4.4 L 10^3/uL
(4.8-10.8)
RBC 3.88 L 10^6/uL
(4.70-6.10)
Hgb 9.7 L g/dL
(13.0-18.0)
Hct 29.4 L %
(39.0-52.0)
MCV 75.8 L fL
(80.0-94.0)
MCH 25.0 L pg
(27.0-31.0)
RDW 18.3 H %
(11.5-14.5)
Absolute Lymphs (auto) 0.8 L 10^3/uL
(1.2-3.4)
Lymphocytes % 17.0 L %
(20.5-51.1)
Monocytes % 12.7 H %
(1.7-9.3)
Glucose 102 H mg/dl
(70-99)
AST 85 H U/L
(17-59)
05/18/24 02:01
05/18/24 02:01
Vital Signs
Initial and Last Documented VS:
Initial Vital Signs
Temp Pulse Resp BP Pulse Ox
98.6 F 115 12 137/87 96
05/18/24 01:49 05/18/24 01:49 05/18/24 01:49 05/18/24 01:49 05/18/24 01:49
Last Documented Vital Signs
Temp Pulse Resp BP Pulse Ox
98.6 F 113 15 137/81 97
05/18/24 01:49 05/18/24 03:30 05/18/24 03:30 05/18/24 03:00 05/18/24 03:30
MDM/Problems Addressed
Differential Diagnosis Includes:
Alcohol withdrawal, polysubstance withdrawal.
MDM/Problems Addressed:
Patient evaluated by be [facility]. Patient can be placed at [facility]. However patient wants to tour the facility before he will commit to it. He is feeling better after treatment here. He is not unstable. He cares is provided the patient with
information so that he can be placed in the next day or 2 should he desire. Patient will be discharged and will go to his father's house rather than the senior care.
*EKG
Interpreted by ED Provider?: Yes
Heart Rate: 111
Rate: tachycardiac
Rhythm: sinus tachycardia
[place]: normal axis
Interval: normal interval
QRS Pattern: normal QRS
Ischemia: no ischemia
*Marksmanship Instructor Interpretation
Rate: tachycardiac
Interpretation: abnormal
Rhythm: sinus tachycardia
*Critical Care Note
Total Time (30-74mins, 75-104mins- exclusive of procedures): Not Applicable
ED Attending Note
-
Portions of this chart may have been created with voice recognition software.� Occasional wrong word or��sound alike� substitutions may have occurred due to the inherent limitations of voice recognition software.
Discharge Plan
Departure
Patient Disposition: Home (Routine Discharge)
Date of Disposition: 05/18/24
Time of Disposition: 05:42
Patient with high blood pressure during this ER visit?: Yes
Condition: Good
Discharge Problem:
Alcohol dependency, Alcohol withdrawal
Instructions: Alcohol Withdrawal (DC), Alcohol Use Disorder (DC), BLOOD PRESSURE
Prescriptions:
No Action
levothyroxine 100 mcg Tablet
100 mcg PO DAILY
miconazole nitrate [Miconazorb AF] 2 % Powder
1 applic topical BID 10 Days Qty: 85 0RF
phenobarbital 32.4 mg Tablet
32.4 mg PO TID Qty: 6 0RF
pantoprazole 40 mg Tablet,Delayed Release (Dr/Ec)
40 mg PO DAILY Qty: 30 0RF
phenobarbital 32.4 mg Tablet
64.8 mg PO TID Qty: 12 0RF
cholecalciferol (vitamin D3) 50 mcg (2,000 unit) Tablet
50 mcg PO DAILY Qty: 0 0RF
lorazepam 1 mg tablet
1 mg PO Q2HPRN PRN (Reason: alcohol withdrawal) Qty: 20 0RF
magnesium oxide 500 mg magnesium tablet
500 mg PO DAILY Qty: 30 0RF
thiamine HCl (vitamin B1) 100 mg Tablet
100 mg PO BID 30 Days Qty: 60 1RF
phenobarbital 97.2 mg tablet
97.2 mg PO Q8H Qty: 5 0RF
Referrals:
Shay Strauss MD, Resident [Family Provider] -
Interventions
Interventions:
*Risk Screen - Suicide Last Done: 05/18/24 01:49
*General Assessment Last Done: 05/18/24 01:49
*Neglect/Abuse Screening Last Done: 05/18/24 01:49
ED- Fall Risk Assessment Last Done: 05/18/24 01:49
*ED COVID-19 Vaccine History Last Done: 05/18/24 01:49
ED- Neurological Assessment Last Done: 05/18/24 01:49
ED-Psychological Assessment Last Done: 05/18/24 01:49
Discharge Date and Time
Print Language: MOHAWK
[2024-05-18] MEDS: ATIVAN 1 MG PO (08:08)
--- NOTE | 2024-05-18 14:48 | CM ---
Plan for patient to stay at a [facility] today. Patient has a bed pending at [facility].
CM will provide transportation assitance.
== END 2024-05-18 14:45 | disposition home or self-care (01) ==
LOC: EMR 01:44
PROVIDERS: EMERGENCY PHYSICIAN Emergency Medicine; FAMILY PHYSICIAN Student in an Organized Health Care Education/Training Program
DX: F10.239 Alcohol dependence with withdrawal, unspecified (principal); Y90.0 Blood alcohol level of less than 20 mg/100 ml; E03.9 Hypothyroidism, unspecified; K74.60 Unspecified cirrhosis of liver
CPT/HCPCS: 96374; 96375; 96376; 99284; 80053; 82077; 85025; 93005

== ENCOUNTER 2024-07-17 20:54 | Inpatient (IN) | payer MEDICARE, SELFPAY ==
[2024-07-17] VITALS (14 sets, daily range): BP systolic 117–150; BP diastolic 69–87; BMI 29.9; BMI 29.6
--- NOTE | 2024-07-17 15:25 | ED.GENMED ---
History of Present Illness
<Cyn Harper PA-C - Last Filed: 07/17/24 19:22>
General
Chief Complaint: Skin Problem
Source: patient
Exam Limitations: none
Time Seen by Provider: 07/17/24 15:23
Nursing documentation reviewed up to this point in time: agreed with
History of Present Illness
History of Present Illness:
59-year-old male with past medical history of cirrhosis of the liver, hypothyroidism, alcohol use disorder presents emergency department today with concerns of rash surrounding his right ostomy bag. Patient states that he has history of alcohol use
disorder and states that he was stable for a while and went on a binge recently past few days and has been neglecting care of his ostomy. Patient reports that he is just been putting tape over his ostomy bag and not changing his ostomy and states
that stools gotten over all of his skin. He started to have irritated red rash surrounding the ostomy. He states that he first noticed the rash today and does not know when it started. Patient states that he also has been having vague abdominal
discomfort on the right side as well as starting to have withdrawal symptoms from alcohol as well considering he restarted drinking this past week. He states he started to have some tremors. His last drink was this morning he had a glass of vodka.
Patient states that he usually drinks 4 pints of vodka a day. He is interested in starting rehab care today. He denies any fevers or chills.
Past History
<Cyn Harper PA-C - Last Filed: 07/17/24 19:22>
Past History
ED Past Medical History: Hypothyroidism and Other (Bowel obstruction, Cirrhosis of the liver, Alcohol abuse)
ED Past Surgical History: Other (Ileostomy due to infection located by sepsis, Hernia X 2)
Social History
Tobacco: Non-smoker
Alcohol: Daily
Drug: None
Personal:
Living: alone
Review of Systems
<Cyn Harper PA-C - Last Filed: 07/17/24 19:22>
Review of Systems
All Other Systems: ROS reviewed and negative except as documented in HPI and ROS
Phy Exam
<Cyn Harper PA-C - Last Filed: 07/17/24 19:22>
Physical Exam
Physical Exam:
General: Patient is well appearing and in no acute distress; non-toxic
Skin: Warm and dry, dry patchy rash noted surrounding the ostomy
Head: Normocephalic, atraumatic
Eyes: Sclera non-icteric. EOMs intact.
Cardiac: Mild tachycardia noted otherwise regular rhythm, no murmurs
Pulm: Normal respiratory effort, no wheezes, rales, or rhonchi
Abdomen: Right sided abdominal tenderness to palpation
Neuro: CN II-XII intact, no focal neurologic deficits.
Psychiatric: Appropriate mood and affect.
Course
<Cyn Harper PA-C - Last Filed: 07/17/24 19:22>
Orders/Labs/Results
Orders:
Orders
07/17/24 15:32
Alcohol Urgent
Complete Blood Count/With Diff Urgent
Comprehensive Metabolic Panel Urgent
Lipase Urgent
Comment: ADD ON
07/17/24 15:51
Iohexol [Omnipaque] See Protocol PO NOW STA
07/17/24 15:52
CT Abd/pel W Iv And Oral Contr Urgent
Comment:
Reason For Exam: right sided abdominal pain
07/17/24 16:45
0.9% Sodium Chloride 1000 ml [Nss] 1,000 ml IV BOLUS
Lorazepam [Ativan] 2 mg IV NOW STA
Ondansetron Injectable [Zofran] 4 mg IV NOW STA
07/17/24 18:43
Add On- LAB Urgent
Tests Added?: lipase
07/17/24 19:09
Pantoprazole [Protonix IV] 40 mg IV NOW STA
Abnormal Lab Results
07/17/24
15:32
WBC 2.9 L 10^3/uL
(4.8-10.8)
RBC 4.31 L 10^6/uL
(4.70-6.10)
Hgb 11.1 L g/dL
(13.0-18.0)
Hct 32.9 L %
(39.0-52.0)
MCV 76.3 L fL
(80.0-94.0)
MCH 25.8 L pg
(27.0-31.0)
RDW 19.0 H %
(11.5-14.5)
Plt Count 45 L 10^3/uL
(130-400)
Absolute Lymphs (auto) 0.6 L 10^3/uL
(1.2-3.4)
Immature Gran % 0.7 H %
(0-0.5)
Lymphocytes % 19.1 L %
(20.5-51.1)
Sodium 133 L mmol/L
(135-145)
Potassium 3.3 L mmol/L
(3.5-5.1)
Chloride 92 L mmol/L
(98-107)
Glucose 181 H mg/dl
(70-99)
AST 218 H U/L
(17-59)
ALT 85 H U/L
(0-50)
Lipase 609 H U/L
(23-300)
07/17/24 15:32
07/17/24 15:32
Vital Signs
Initial and Last Documented VS:
Initial Vital Signs
Temp Pulse Resp BP Pulse Ox
36.9 C 105 22 150/87 98
07/17/24 14:45 07/17/24 14:45 07/17/24 14:45 07/17/24 14:45 07/17/24 14:45
Last Documented Vital Signs
Temp Pulse Resp BP Pulse Ox
36.9 C 93 17 126/82 95
07/17/24 14:45 07/17/24 19:00 07/17/24 19:00 07/17/24 19:00 07/17/24 19:00
<Tammy Reid DO - Last Filed: 07/17/24 17:11>
Orders/Labs/Results
Orders:
Orders
07/17/24 15:32
Alcohol Urgent
Complete Blood Count/With Diff Urgent
Comprehensive Metabolic Panel Urgent
Lipase Urgent
Comment: ADD ON
07/17/24 15:51
Iohexol [Omnipaque] See Protocol PO NOW STA
07/17/24 15:52
CT Abd/pel W Iv And Oral Contr Urgent
Comment:
Reason For Exam: right sided abdominal pain
07/17/24 16:45
0.9% Sodium Chloride 1000 ml [Nss] 1,000 ml IV BOLUS
Lorazepam [Ativan] 2 mg IV NOW STA
Ondansetron Injectable [Zofran] 4 mg IV NOW STA
07/17/24 18:43
Add On- LAB Urgent
Tests Added?: lipase
07/17/24 19:09
Pantoprazole [Protonix IV] 40 mg IV NOW STA
Abnormal Lab Results
07/17/24
15:32
WBC 2.9 L 10^3/uL
(4.8-10.8)
RBC 4.31 L 10^6/uL
(4.70-6.10)
Hgb 11.1 L g/dL
(13.0-18.0)
Hct 32.9 L %
(39.0-52.0)
MCV 76.3 L fL
(80.0-94.0)
MCH 25.8 L pg
(27.0-31.0)
RDW 19.0 H %
(11.5-14.5)
Plt Count 45 L 10^3/uL
(130-400)
Absolute Lymphs (auto) 0.6 L 10^3/uL
(1.2-3.4)
Immature Gran % 0.7 H %
(0-0.5)
Lymphocytes % 19.1 L %
(20.5-51.1)
Sodium 133 L mmol/L
(135-145)
Potassium 3.3 L mmol/L
(3.5-5.1)
Chloride 92 L mmol/L
(98-107)
Glucose 181 H mg/dl
(70-99)
AST 218 H U/L
(17-59)
ALT 85 H U/L
(0-50)
Lipase 609 H U/L
(23-300)
07/17/24 15:32
07/17/24 15:32
Vital Signs
Initial and Last Documented VS:
Initial Vital Signs
Temp Pulse Resp BP Pulse Ox
36.9 C 105 22 150/87 98
07/17/24 14:45 07/17/24 14:45 07/17/24 14:45 07/17/24 14:45 07/17/24 14:45
Last Documented Vital Signs
Temp Pulse Resp BP Pulse Ox
36.9 C 93 17 126/82 95
07/17/24 14:45 07/17/24 19:00 07/17/24 19:00 07/17/24 19:00 07/17/24 19:00
Sakshilt;Cheri Crooks PA-C - Last Filed: 07/17/24 19:39>
Orders/Labs/Results
Orders:
Orders
07/17/24 15:32
Alcohol Urgent
Complete Blood Count/With Diff Urgent
Comprehensive Metabolic Panel Urgent
Lipase Urgent
Comment: ADD ON
07/17/24 15:51
Iohexol [Omnipaque] See Protocol PO NOW STA
07/17/24 15:52
CT Abd/pel W Iv And Oral Contr Urgent
Comment:
Reason For Exam: right sided abdominal pain
07/17/24 16:45
0.9% Sodium Chloride 1000 ml [Nss] 1,000 ml IV BOLUS
Lorazepam [Ativan] 2 mg IV NOW STA
Ondansetron Injectable [Zofran] 4 mg IV NOW STA
07/17/24 18:43
Add On- LAB Urgent
Tests Added?: lipase
07/17/24 19:09
Pantoprazole [Protonix IV] 40 mg IV NOW STA
Abnormal Lab Results
07/17/24
15:32
WBC 2.9 L 10^3/uL
(4.8-10.8)
RBC 4.31 L 10^6/uL
(4.70-6.10)
Hgb 11.1 L g/dL
(13.0-18.0)
Hct 32.9 L %
(39.0-52.0)
MCV 76.3 L fL
(80.0-94.0)
MCH 25.8 L pg
(27.0-31.0)
RDW 19.0 H %
(11.5-14.5)
Plt Count 45 L 10^3/uL
(130-400)
Absolute Lymphs (auto) 0.6 L 10^3/uL
(1.2-3.4)
Immature Gran % 0.7 H %
(0-0.5)
Lymphocytes % 19.1 L %
(20.5-51.1)
Sodium 133 L mmol/L
(135-145)
Potassium 3.3 L mmol/L
(3.5-5.1)
Chloride 92 L mmol/L
(98-107)
Glucose 181 H mg/dl
(70-99)
AST 218 H U/L
(17-59)
ALT 85 H U/L
(0-50)
Lipase 609 H U/L
(23-300)
07/17/24 15:32
07/17/24 15:32
Vital Signs
Initial and Last Documented VS:
Initial Vital Signs
Temp Pulse Resp BP Pulse Ox
36.9 C 105 22 150/87 98
07/17/24 14:45 07/17/24 14:45 07/17/24 14:45 07/17/24 14:45 07/17/24 14:45
Last Documented Vital Signs
Temp Pulse Resp BP Pulse Ox
36.9 C 93 17 126/82 95
07/17/24 14:45 07/17/24 19:00 07/17/24 19:00 07/17/24 19:00 07/17/24 19:00
Sakshilt;Cyn Harper PA-C - Last Filed: 07/17/24 19:22>
MDM/Problems Addressed
Differential Diagnosis Includes:
ddx include contact dermatitis, cellulitis, alcohol intoxication, alcohol withdrawal
MDM/Problems Addressed:
59-year-old male presents emergency department today with concerns of redness surrounding his right ostomy bag. He does have a history of alcohol use disorder and states that he has been neglecting his ostomy bag the past few days. Patient states
that he has been doing well with his AA meetings with him reports he started drinking past week. Wound exam consistent with a contact dermatitis but will start on antibiotics considering the dirty status of his wound upon discharge. Patient is
concerned about his hernias, and with his generalized pain, will send for CAT scan of the abdomen.
On reassessment, patient is now exhibiting progressive signs of alcohol withdrawal. His lab work, he was noted to have a low platelet count. Patient does admit to having more frequent nosebleeds this past week as well as some bleeding from his
stoma. In light of his progressive withdrawal symptoms as well as low platelet counts with active signs of bleeding, will refer to hospitalist for admission. Patient given dose of PPI.
<Cyn Harper PA-C - Last Filed: 07/17/24 19:22>
*Pulse Oximetry
Patient hypoxic: no
*Critical Care Note
Total Time (30-74mins, 75-104mins- exclusive of procedures): Not Applicable
<Cheri Crooks PA-C - Last Filed: 07/17/24 19:39>
Update Note
Update Note:
Received patient in signout at [address] scan. Patient originally presented for red rash on his right abdomen
Which was likely from breakdown from his ostomy site leaking. It looks excoriated but not infected. As the patient encounter went on it seemed he was intoxicated, they did screening labs showing alcohol level was initially 329 and he admitted he
had been on an binge up until 2 days ago when he stopped drinking. Is questionable whether he was vomiting which caused him to stop drinking and then today he was able to drink before he got here. Initially to the staff he appeared intoxicated but
as he was being prepped for CT he began to have alcohol withdrawal symptoms with tremors and tachycardia. Patient was medicated with 2 mg IV Ativan which is controlled his symptoms well. He is a little drowsy but can hold a conversation.
Patient's labs were reviewed by me and noted to have a platelet count of 45,000 lower than usual, leukopenia 2.9, mild transaminitis, mild lipase elevation. His CT shows parastomal hernia but no obstruction. There is no CT evidence of
pancreatitis. When I spoke with the patient he says he has been having some spontaneous nosebleeds. I did heme check his stool which is a greenish color and it was positive. There is no overt bleeding going on now. Discussed with ED attending.
Will admit for multiple issues including his alcohol withdrawal and after -[facility]'s consultation there is no beds for him available but he is on a wait list at [facility], IV fluids, Protonix,
ED Attending Note
<Cyn Harper PA-C - Last Filed: 07/17/24 19:22>
-
Portions of this chart may have been created with voice recognition software.� Occasional wrong word or��sound alike� substitutions may have occurred due to the inherent limitations of voice recognition software.
<Tammy Reid DO - Last Filed: 07/17/24 17:11>
ED Attending Note
Patient seen and examined by attending physician: Yes
I performed the substantive portion of visit, reviewed & personally made and approve the management plan that is documented in note by myself or FRANCY.: Yes
I performed a history and physical exam of patient and discussed management with resident, I reviewed resident's note and agree with documented findings and plan of care.: Yes
ED Attending Note:
59-year-old male with history of alcohol abuse and ostomy presenting to the emergency department for rash around his ileostomy. Patient reports that he has been been drinking for the past several days who has been negligent with changing his ostomy
bag. There has been some leakage of GI contents around the area with some irritation of the skin. He also notes that he has since developed some pain to the abdomen. Denies nausea, vomiting, diarrhea. Does report increased amount of drinking.
He is interested in rehabilitation services. Denies fever. Vital signs significant for mild tachypnea, however resolved without intervention.
On exam, patient is resting comfortably, nontoxic, no acute distress. On examination of the abdomen, right lower quadrant ileostomy with surrounding erythema and skin irritation with suspicion for contact dermatitis. Lower suspicion for severe
cellulitis. No abnormal drainage or abscess collection. There is a large hernia underlying the ostomy, soft and reproducible, generally tender on palpation. At this time lower suspicion for serious intra-abdominal process. Patient had laboratory
analysis obtained, no leukocytosis. Alcohol level is elevated, consistent with known binge history. No present clinical signs for withdrawal. Ultimate plan for CT abdominal imaging and [facility] consult for rehab services. Regarding area of skin
irritation, will plan to treat with topical corticosteroid, which patient notes is work from in the past. Will also empirically treat with Keflex in the setting of developing cellulitis.
Discharge Plan
Departure
Patient Disposition: Admit
Date of Disposition: 07/17/24
Time of Disposition: 19:07
Admit to: Telemetry
Presentation/result/management discussed w/ accepting MD/DO: Hospitalist
Condition: Fair
Covid-19: Not Applicable
Discharge Problem:
Alcohol withdrawal, GI (gastrointestinal bleed), Thrombocytopenia
Prescriptions:
No Action
levothyroxine 100 mcg Tablet
100 mcg PO DAILY
miconazole nitrate [Miconazorb AF] 2 % Powder
1 applic topical BID 10 Days Qty: 85 0RF
phenobarbital 32.4 mg Tablet
32.4 mg PO TID Qty: 6 0RF
pantoprazole 40 mg Tablet,Delayed Release (Dr/Ec)
40 mg PO DAILY Qty: 30 0RF
phenobarbital 32.4 mg Tablet
64.8 mg PO TID Qty: 12 0RF
cholecalciferol (vitamin D3) 50 mcg (2,000 unit) Tablet
50 mcg PO DAILY Qty: 0 0RF
lorazepam 1 mg tablet
1 mg PO Q2HPRN PRN (Reason: alcohol withdrawal) Qty: 20 0RF
magnesium oxide 500 mg magnesium tablet
500 mg PO DAILY Qty: 30 0RF
thiamine HCl (vitamin B1) 100 mg Tablet
100 mg PO BID 30 Days Qty: 60 1RF
phenobarbital 97.2 mg tablet
97.2 mg PO Q8H Qty: 5 0RF
Referrals:
Shay Strauss MD, Resident [Family Provider] -
Interventions
Interventions:
*Risk Screen - Suicide Last Done: 07/17/24 14:45
*General Assessment Last Done: 07/17/24 14:45
*Neglect/Abuse Screening Last Done: 07/17/24 14:45
*ED- Fall Risk Assessment Last Done: 07/17/24 15:21
*ED COVID-19 Vaccine History Last Done: 07/17/24 15:21
ED-Skin Assessment Last Done: 07/17/24 15:22
Discharge Date and Time
Print Language: ARMENIAN
[2024-07-17 15:51] LABS: % Basophils 0.3 % (0-2); % Eosinophils 0.3 % (0-6); % Immature Granulocytes 0.7 % (0-0.5); % Lymphocytes 19.1 % (20.5-51.1); % Monocytes 8.2 % (1.7-9.3); % Neutrophils 71.4 % (42.2-75.2); Absolute Lymphocytes 0.6 10^3/uL (1.2-3.4); Absolute Monocytes 0.2 10^3/uL (0.1-0.6); Absolute Neutrophils 2.1 10^3/uL (1.4-6.5); Hematocrit 32.9 % (39.0-52.0); Hemoglobin 11.1 g/dL (13.0-18.0); Mean Corp Hgb Conc. 33.7 g/dL (33.0-37.0); Mean Corpuscular Hgb 25.8 pg (27.0-31.0); Mean Corpuscular Volume 76.3 fL (80.0-94.0); Nucleated Red Blood Cells % 0.7 % (-); Red Blood Cell Count 4.31 10^6/uL (4.70-6.10); White Blood Cell Count 2.9 10^3/uL (4.8-10.8)
[2024-07-17 15:59] LABS: ALT (SGPT) 85 U/L (0-50); AST (SGOT) 218 U/L (17-59); Albumin 4.2 g/dl (3.5-5.0); Alkaline Phosphatase 96 U/L (38-126); Blood Urea Nitrogen 14 mg/dl (9-20); Calcium 8.8 mg/dl (8.4-10.2); Carbon Dioxide 27 mmol/L (22-30); Chloride 92 mmol/L (98-107); Estimated Creatinine Clearance 101 ml/min; Glucose 181 mg/dl (70-99); Potassium 3.3 mmol/L (3.5-5.1); Sodium 133 mmol/L (135-145); Total Bilirubin 0.8 mg/dl (0.2-1.3); Total Protein 7.1 g/dl (6.3-8.2); eGFR > 60.00
[2024-07-17] MEDS: OMNIPAQUE 50 ML PO (16:04)
[2024-07-17 16:05] LABS: Mean Platelet Volume 10.1 fL (7.4-10.4); Platelet Count 45 10^3/uL (130-400)
[2024-07-17 16:09] LABS: Alcohol 329 mg/dl
[2024-07-17] MEDS: ATIVAN 2 MG IV (16:52)
[2024-07-17] MEDS: NSS 1000 IV ×2 (16:53→22:04)
[2024-07-17] MEDS: ZOFRAN 4 MG IV (16:53)
[2024-07-17 19:14] LABS: Lipase 609 U/L (23-300)
[2024-07-17] MEDS: PROTONIX IV 40 MG IV (19:22)
--- NOTE | 2024-07-17 20:31 | HPS.HSE ---
Family Physician
-
Family Physician: Shay Strauss MD, Resident
Chief Complaint
-
alcohol withdrawal
History of Present Illness
59-year-old male past medical history of alcohol use disorder, alcoholic cirrhosis, Fox's thyroiditis, pancytopenia, diverticulitis status post perforation status post ileostomy in 2019, anxiety, right upper lobe lung nodule, vitamin D
deficiency, presenting with rash surrounding his ostomy bag. Patient states that he recently started binge drinking alcohol a few days ago and neglecting care of his ostomy. He states that he is putting tape over his ostomy bag and not changing
his ostomy and stool has gotten all over the skin due to overflow. He has a red rash surrounding the ostomy. He first noticed the rash today and does not know when it started.
He is also been having epigastric abdominal pain described as burning. He is starting to have withdrawal symptoms from alcohol. He has tremors. His last drink was this morning and he had a glass of vodka. Usually drinks 4 pints of vodka per day.
He is interested in starting rehab. He denies fevers or chills.
He has been having nosebleeding from his right nostril over the past few days. He is also having bleeding from his ears. He fell yesterday onto his left shoulder. He has some headache but denies ear pain.
He states that he had bleeding from his ostomy a while ago but unable to tell me when exactly. He denies any bleeding currently.
Medical History
Past Medical History
Past Medical History: Reports Other (alcohol use disorder, alcoholic cirrhosis, Fox's thyroiditis, pancytopenia, diverticulitis status post perforation status post ileostomy in 2019, anxiety, right upper lobe lung nodule, vitamin D deficiency,)
Past Surgical History: Reports None
Social History
Tobacco: Non-smoker
Alcohol: Daily
Drug: None
Family History
Family History: Not pertinent
Allergies / Home Medications
Allergies reflects when Allergies were last updated in [facility].
Home Medications with original date entered in [facility]
Allergy/Medication List:
Allergies
Allergy/AdvReac Type Severity Reaction Status Date / Time
No Known Allergies Allergy Verified 07/17/24 14:45
Home Medications
levothyroxine 100 mcg tablet 100 mcg PO DAILY Thyroid 07/01/23
cholecalciferol (vitamin D3) 50 mcg (2,000 unit) tablet 50 mcg PO DAILY Supplement #0 tabs 04/29/24
magnesium oxide 500 mg PO DAILY Electrolyte Repletion #30 tabs 04/29/24
Review of Systems
-
History Source: Patient
A 12 point ROS was completed and negative except as noted: Yes
Constitutional: Reports No Symptoms
EENT: Reports No Symptoms
Respiratory: Reports No Symptoms
Cardiac: Reports No Symptoms
Abdomen/GI: Reports See HPI
: Reports No Symptoms
Musculoskeletal: Reports No Symptoms
Skin: Reports No Symptoms
Neurological: Reports No Symptoms
Endocrine: Reports No Symptoms
Hematologic/Lymphatic: Reports No Symptoms
Psych: Reports No Symptoms
Physical Exam
Vital Signs
Vital Signs
Temp Pulse Resp BP Pulse Ox
98.4 F 89 18 129/81 92
07/17/24 14:45 07/17/24 19:45 07/17/24 19:45 07/17/24 19:30 07/17/24 19:45
Physical Exam
General: Well Developed, Well Nourished and No Apparent Distress
HEENT: NormoCephalic, Moist mucous membranes, Atraumatic and Other (some blood in left ear, some bloody residue left nostril )
Respiratory: Clear
Cardiac: S1/S2 and Regular Rhythm; No Murmur or Rub
GI: Soft, Non Tender, Non Distended and Normal Bowel Sounds; No Organomegaly
Rectal: Deferred by Provider
Musculoskeletal: No Clubbing, No Cyanosis and No Edema
Skin: No Rash
Neuro: Nonfocal/grossly intact
Laboratory Results
-
07/17/24 15:32
07/17/24 15:32
Laboratory Results
Total Bilirubin 0.8 mg/dl (0.2-1.3) 07/17/24 15:32
AST 218 U/L (17-59) H 07/17/24 15:32
ALT 85 U/L (0-50) H 07/17/24 15:32
Alkaline Phosphatase 96 U/L (38-126) 07/17/24 15:32
Lipase 609 U/L (23-300) H 07/17/24 15:32
Data Reviewed
-
Lab Data: Labs Reviewed by me
Old Records: Reviewed
Impression/Plan
-
IMPRESSION:
PLAN:
# Dermatitis secondary to irritation from poor ileostomy care
-Patient needs better ileostomy care
# Epistaxis from right nostril in the setting of thrombocytopenia
-No active bleeding
# Otorrhagia bilterally etiology seems traumatic possibly from fall
-Examination of the left ear shows small amount of bright red blood, right ear does not show any bleeding
-no active bleeding currently
-Check CT head
#Fall yesterday with possibly head injury
-CT head pending
# Thrombocytopenia secondary to alcohol/cirrhosis
-Platelets of 45
# Chronic anemia
-Hemoglobin stable actually better than before
-Fecal occult is heme positive with green stool
# Alcoholic gastritis
-Lipase 600
-Protonix 40 daily
# Transaminitis secondary to alcohol use
-Continue to monitor
# Alcohol withdrawal
# Alcohol use disorder
-Alcohol level 329
-Thiamine and folate
-Alcohol withdrawal protocol
-Phenobarbital protocol
-IV fluids
# Hypokalemia
-Replete potassium
History of Fox's thyroiditis/hypothyroidism
-Continue levothyroxine
Diverticulitis status post perforation sepsis ileostomy in 2019
Anxiety
Right upper lobe lung nodule
Vitamin D deficiency
Full code
DVT prophylaxis�SCDs
Regular diet
[2024-07-17] MEDS: KCL 40 MEQ PO (20:37)
[2024-07-17] MEDS: PHENOBARBITAL 104 MG IV (22:41)
--- NOTE | 2024-07-17 23:00 | PTCARENOTE ---
Received patient from ED at approx 2140. Patient ambulated from stretcher to bed. AAA x 3. Reported lower back pain. Vital signs WNL. Patient oriented to room. Call garcia within reach.
[2024-07-17 23:13] LABS: Magnesium 1.5 mg/dl (1.6-2.3)
[2024-07-18] VITALS (10 sets, daily range): BP systolic 117–139; BP diastolic 63–85; PULSE 100; O2SAT 95–97
[2024-07-18] MEDS: LIDOCAINE 4% PATCH 1 PATCH TOPICAL ×2 (01:13→22:01)
[2024-07-18] MEDS: ZOFRAN 4 MG IV (04:34)
[2024-07-18] MEDS: SYNTHROID 100 MCG PO (05:58)
[2024-07-18] MEDS: ATIVAN 1 MG PO ×4 (06:11→20:34)
[2024-07-18 07:12] LABS: % Basophils 0.5 % (0-2); % Eosinophils 1.5 % (0-6); % Lymphocytes 25.5 % (20.5-51.1); % Neutrophils 63.5 % (42.2-75.2); Absolute Lymphocytes 0.5 10^3/uL (1.2-3.4); Absolute Monocytes 0.2 10^3/uL (0.1-0.6); Absolute Neutrophils 1.3 10^3/uL (1.4-6.5); Hematocrit 29.8 % (39.0-52.0); Mean Corp Hgb Conc. 33.6 g/dL (33.0-37.0); Mean Corpuscular Hgb 25.8 pg (27.0-31.0); Nucleated Red Blood Cells % 0 % (-); Platelet Count 28 10^3/uL (130-400); Red Blood Cell Count 3.87 10^6/uL (4.70-6.10); Red Cell Dist. Width 19.1 % (11.5-14.5)
[2024-07-18 07:18] LABS: ALT (SGPT) 82 U/L (0-50); AST (SGOT) 187 U/L (17-59); Albumin 3.6 g/dl (3.5-5.0); Alkaline Phosphatase 85 U/L (38-126); Blood Urea Nitrogen 7 mg/dl (9-20); Calcium 7.9 mg/dl (8.4-10.2); Carbon Dioxide 30 mmol/L (22-30); Chloride 96 mmol/L (98-107); Estimated Creatinine Clearance 101 ml/min; Glucose 108 mg/dl (70-99); Potassium 2.9 mmol/L (3.5-5.1); Sodium 135 mmol/L (135-145); Total Bilirubin 0.7 mg/dl (0.2-1.3); Total Protein 6.2 g/dl (6.3-8.2); eGFR > 60.00
[2024-07-18] MEDS: PROTONIX IV 40 MG IV ×2 (08:42→20:16)
[2024-07-18] MEDS: THIAMINE INJECTION 200 MG IV ×2 (08:42→20:14)
[2024-07-18] MEDS: NSS (PRESERVATIVE FREE) 10 ML IV ×2 (08:42→20:16)
[2024-07-18] MEDS: PHENOBARBITAL 97.5 MG IV ×3 (08:43→21:50)
--- NOTE | 2024-07-18 10:34 | W.PN.HOSP.TC ---
Today's Communication/Plan
-
Replace magnesium, potassium
Monitor for active bleeding with low thrombocytopenia
Fall risk
Risk for delirium tremens
Continue with phenobarbital and as needed Ativan
Continue with high-dose thiamine
Intravenous Protonix
Follow-up with GI recommendations
Assessment / Plan
Assessment / Plan
Physical Exam
General: No Apparent Distress
HEENT: Normocephalic, Moist mucous membranes, Atraumatic.
Respiratory: Clear
Cardiac: S1/S2
GI: Soft, Non Tender, Non Distended and Normal Bowel Sounds; + colostomy - brown stool in bag)
Musculoskeletal: No joint swelling.
Skin: No Rash
Neuro: AAOX3, he followed commands, + tremor noted.
Psych: calm, no agitation or paranoia noted.
A/P:
# Alcohol withdrawal
# Alcohol use disorder
Patient admits to drinking Vodka daily and recently was drinking heavily, he denies depression
c/w Thiamine and folate
-Alcohol withdrawal protocol
-Phenobarbital protocol & PRN Ativan
He denies gI symptoms, no pain or nausea
-IV fluids
# Hypokalemia, replace
Repeat BMP in AM
# Dermatitis secondary to irritation from poor ileostomy care
-Patient needs better ileostomy care
consulted wound care
# Epistaxis from right nostril in the setting of thrombocytopenia
-No active bleeding at present time.
# Otorrhagia bilaterally etiology seems traumatic possibly from fall
-no active bleeding currently
- No confusion, he is lucid and following commands.
CT head : no acute intracranial abnormality
#Fall, gait dysfunction due to alcohol use.
consulted PT/ OT
# Acute on chronic thrombocytopenia secondary to alcohol/cirrhosis
Platelets of 28 but no active bleeding
PT/ INR normal
d/w hematology on phone, will observe and no transfusion, repeat CBC in am
#Pancytopenia-secondary to bone marrow depression from alcohol.
# Hypomagnesemia, replace
# Hyponatremia, resolved
# Chronic anemia due to anemia of chronic disease and chronic GI blood loss
-Hemoglobin stable actually better than before
-Fecal occult is heme positive with green stool
# Alcoholic gastritis
-Lipase 600
He denies abdominal pain. Start the patient on IV Protonix twice daily, consult GI. If GI decides to do procedure, will give platelet transfusion
# Transaminitis secondary to alcohol use
-Continue to monitor
History of Fox's thyroiditis/hypothyroidism
-Continue levothyroxine
Diverticulitis status post perforation sepsis ileostomy in 2019
Anxiety
Right upper lobe lung nodule
Vitamin D deficiency
Full code
DVT prophylaxis�SCDs
Regular diet
Total time spent to see the patient, examine the patient, review data and lab results, discuss treatment plan with patient and nursing staff around 55 minutes
Anticipated Discharge: > 48 hours
Subjective/Interval History
-
Date of Service: July 18, 2024
No chest pain
No sob
No abdominal pain
Objective Data
-
Labs:
Laboratory Results
07/18/24
05:57
WBC 2.0 L*
Hgb 10.0 L
Hct 29.8 L
Plt Count 28 L* D
Sodium 135
Potassium 2.9 L
Chloride 96 L
Carbon Dioxide 30
BUN 7 L
Creatinine 0.8
Glucose 108 H
Calcium 7.9 L
Total Bilirubin 0.7
AST 187 H
ALT 82 H
Alkaline Phosphatase 85
Vital Signs:
Vital Signs
Temp Pulse Resp BP Pulse Ox
98.3 F 101 18 136/81 100
07/18/24 07:00 07/18/24 07:00 07/18/24 07:00 07/18/24 07:00 07/18/24 07:00
I&O
07/17/24 07/18/24 07/19/24
06:59 06:59 06:59
Intake Total 1224 / 1224
Output Total 350 / 350
Balance 874 / 874
[2024-07-18] MEDS: KCL 40 MEQ PO (10:47)
[2024-07-18] MEDS: KCL 270 MEQ IV (10:48)
[2024-07-18 11:12] LABS: INR 1.02; PT 13.7 Sec (11.4-14.6)
[2024-07-18] MEDS: NSS 1000 IV (12:45)
--- NOTE | 2024-07-18 14:23 | CM ---
Initial assessment completed
Pharmacy verified; [facility] @ [address] [place] [address]
Patient lives in a 2 story home with his parents; 0 steps to enter; 13 steps to Loft; bath has stall shower
Patient is independent with ambulation, stairs, and ADLs; drives; unemployed
NO SNF or Home Health utilization history
Family or friend will transport home
Offered and accepted [facility] resource
Offered [facility] counseling; declined at this time
Plan: Discharge to home when stable; CM will monitor for discharge needs and support
--- NOTE | 2024-07-18 14:52 | CON.GI ---
Consultation
-
Date/Time Consultation Requested: 07/18/24
Date/Time Consultation Performed: 07/18/24
Requesting Provider:
Performing Provider:
Reason for Consultation: Alcohol intoxication,
Medical History
Chief Complaint / HPI
Chief Complaint: Irritation around the ostomy bag
History of Present Illness:
59-year-old male with history of alcohol abuse, cirrhosis presenting with complaints of rash around his ostomy bag. He reports that it was irritating and he was changing it on a regular basis without cleaning it. He was also noted to have alcohol
intoxication when he came in with some withdrawal symptoms. He denies any abdominal pain except around the ostomy site sometimes, nausea or vomiting. No heartburn or trouble swallowing. He has ileostomy from a previous diverticulitis episode, he
reports that he takes up to 3 tablets of Imodium 2 or 3 times a day and Pepto-Bismol 2-3 times a day and with this he does not have diarrhea. Denies any blood in the stool or black stool when he has Pepto-Bismol he would see dark stool. Stool
itself is soft and mushy.
He reports that his drinking pattern is-he may be sober for a few weeks and then he may have multiple drinks daily for whole week. Last drink was yesterday.
On reviewing labs, he came in with pancytopenia like picture and today white cell count is 2.0, hemoglobin of 10.0, MCV of 77, platelets of 28. LFTs show AST of 187, ALT of 82, total bilirubin of 0.7, lipase of 609. INR of 1.0. Nosebleed noted.
CT scan of the abdomen and pelvis with oral and IV contrast, right lower quadrant parastomal hernia and rectal diastasis noted containing nondilated small bowel loops without obstruction. Cirrhosis and severe hepatic steatosis noted. CT head
negative for acute bleed.
EGD February [address] Phillips, no evidence of varices, food noted in the stomach and single small submucosal nodule noted in the gastric body. Outpatient follow-up EGD recommended apart from ileoscopy.
Past Medical History
Past Medical History: Other ( (alcohol use disorder, alcoholic cirrhosis, Fox's thyroiditis, pancytopenia, diverticulitis status post perforation status post ileostomy in 2019, anxiety, vitamin D deficiency,))
Past Surgical History: Other (Ileostomy)
Social History
Tobacco: Non-Smoker
Alcohol: Daily
Drug: Marijuana (Occasional)
Family History
Family History: Reviewed & Not Pertinent
Allergies / Home Medications
Allergy/AdvReac Type Severity Reaction Status Date / Time
No Known Allergies Allergy Verified 07/17/24 14:45
�Medication �Instructions �Recorded
levothyroxine 100 mcg tablet 100 mcg PO DAILY Thyroid 07/01/23
cholecalciferol (vitamin D3) 50 50 mcg PO DAILY Supplement #0 tabs 04/29/24
mcg (2,000 unit) tablet
magnesium oxide 500 mg PO DAILY Electrolyte 04/29/24
Repletion #30 tabs
Review of Systems
-
All other systems: A 12 pt ROS was Negative except as stated above in HPI
Vital Signs
Temp Pulse Resp BP Pulse Ox
97.6 F 106 16 139/85 97
07/18/24 11:01 07/18/24 11:01 07/18/24 11:01 07/18/24 11:01 07/18/24 11:01
Physical Exam
Exam
Respiratory: Clear
Cardiac: S1/S2 and Regular Rhythm
GI: Soft and Other (Ileostomy noted in the right lower quadrant, umbilical hernia noted, no tenderness)
Neuro: AO x 3 and Other (Tremulous)
Results
WBC 2.0 10^3/uL (4.8-10.8) L* 07/18/24 05:57
Hgb 10.0 g/dL (13.0-18.0) L 07/18/24 05:57
Hct 29.8 % (39.0-52.0) L 07/18/24 05:57
MCV 77.0 fL (80.0-94.0) L 07/18/24 05:57
Plt Count 28 10^3/uL (130-400) L* D 07/18/24 05:57
Absolute Neuts (auto) 1.3 10^3/uL (1.4-6.5) L 07/18/24 05:57
PT 13.7 Sec (11.4-14.6) 07/18/24 10:47
INR 1.02 07/18/24 10:47
Sodium 135 mmol/L (135-145) 07/18/24 05:57
Potassium 2.9 mmol/L (3.5-5.1) L 07/18/24 05:57
Chloride 96 mmol/L (98-107) L 07/18/24 05:57
Carbon Dioxide 30 mmol/L (22-30) 07/18/24 05:57
BUN 7 mg/dl (9-20) L 07/18/24 05:57
Creatinine 0.8 mg/dL (0.7-1.3) 07/18/24 05:57
Calcium 7.9 mg/dl (8.4-10.2) L 07/18/24 05:57
Total Bilirubin 0.7 mg/dl (0.2-1.3) 07/18/24 05:57
AST 187 U/L (17-59) H 07/18/24 05:57
ALT 82 U/L (0-50) H 07/18/24 05:57
Alkaline Phosphatase 85 U/L (38-126) 07/18/24 05:57
Lipase 609 U/L (23-300) H 07/17/24 15:32
Diagnostic Image Results:
Prior GI Procedures:
EGD:
Colonoscopy:
Assessment / Plan
-
59 yo M history of cirrhosis likely related to alcohol, previous endoscopy without any evidence of varices, presenting with pancytopenia like picture after significant alcohol use and has withdrawal symptoms with tremulousness.
No evidence of GI bleeding.
CT scan without any evidence of ascites.
MELD 3.0-8
Recommendations:
-History of alcohol abuse, evidence of cirrhosis noted on imaging.
Currently in withdrawal with tremulousness
Agree with DVT protocol with thiamine and folate and as needed Ativan.
Monitor mental status closely but seems to be alert oriented x 3.
-Leukopenia, thrombocytopenia likely related to acute alcohol use with slightly low baseline platelets
-Hemoglobin seems to be at baseline without any significant drop compared to last hospitalization. At some point, he will need outpatient follow-up with Dr. Phillips to schedule for upper endoscopy and also ileoscopy.
Continue PPI
-Slightly elevated lipase but CT scan without any evidence of pancreatitis and no symptoms of abdominal pain.
-Elevated transaminases with normal total bilirubin and alkaline phosphatase.
Could be related to acute alcohol use with underlying fatty liver/cirrhosis picture.
-Does not seem to have hepatic encephalopathy but tremulousness noted. Would not use lactulose given patient only has diarrhea but will add Xifaxan 550 mg twice a day.
Will follow for now
-
-
Thank you for consultation and allowing me to participate in the patient's care. Please call the air traffic control specialist GI physician during the after hours with any questions or concerns.
[2024-07-18] MEDS: XIFAXAN 550 MG PO (20:17)
[2024-07-19] MEDS: NSS IV (00:19)
[2024-07-19] MEDS: NSS 1000 IV ×2 (00:34→14:26)
[2024-07-19] MEDS: ATIVAN 1 MG PO (04:17)
[2024-07-19] MEDS: ZOFRAN 4 MG IV (04:46)
[2024-07-19] MEDS: SYNTHROID 100 MCG PO (05:46)
--- NOTE | 2024-07-19 05:49 | PTCARENOTE ---
Bloody tissue observed on patient's side table. Pt reported having a nose bleed. It has since stopped. Pt currently resting in bed.
[2024-07-19 07:00] VITALS: BP 141/85
[2024-07-19] MEDS: NSS (PRESERVATIVE FREE) 10 ML IV ×2 (08:09→20:36)
[2024-07-19] MEDS: PROTONIX IV 40 MG IV ×2 (08:09→20:36)
[2024-07-19] MEDS: XIFAXAN 550 MG PO ×2 (08:10→20:34)
[2024-07-19] MEDS: THIAMINE INJECTION 200 MG IV ×2 (08:10→20:34)
[2024-07-19] MEDS: PHENOBARBITAL 97.5 MG IV ×3 (08:10→21:07)
[2024-07-19 08:28] LABS: Hemoglobin 10.3 g/dL (13.0-18.0); Mean Corp Hgb Conc. 33.2 g/dL (33.0-37.0); Mean Corpuscular Hgb 25.8 pg (27.0-31.0); Mean Corpuscular Volume 77.7 fL (80.0-94.0); Platelet Count 35 10^3/uL (130-400); Red Blood Cell Count 3.99 10^6/uL (4.70-6.10); Red Cell Dist. Width 18.6 % (11.5-14.5); White Blood Cell Count 2.4 10^3/uL (4.8-10.8)
[2024-07-19 08:49] LABS: ALT (SGPT) 72 U/L (0-50); AST (SGOT) 153 U/L (17-59); Albumin 3.7 g/dl (3.5-5.0); Alkaline Phosphatase 87 U/L (38-126); Blood Urea Nitrogen 5 mg/dl (9-20); Calcium 7.9 mg/dl (8.4-10.2); Carbon Dioxide 27 mmol/L (22-30); Chloride 96 mmol/L (98-107); Estimated Creatinine Clearance 115 ml/min; Glucose 101 mg/dl (70-99); Magnesium 1.3 mg/dl (1.6-2.3); Potassium 3.4 mmol/L (3.5-5.1); Sodium 132 mmol/L (135-145); Total Bilirubin 0.9 mg/dl (0.2-1.3); Total Protein 6.4 g/dl (6.3-8.2); eGFR > 60.00
[2024-07-19 09:17] LABS: Phosphorus 1.9 mg/dl (2.5-4.5)
[2024-07-19] MEDS: MAGNESIUM SULFATE 50 IV (09:36)
--- NOTE | 2024-07-19 09:59 | W.PN.GI.CBS2 ---
Addendum entered and electronically signed by Gianna Rios MD 07/19/24 17:21:
I saw and examined the patient.
The FEEDMOBILE DRIVER or PA's note was reviewed and I agree with the note.
Comment: Patient reports some irritation around the ostomy site but other than that no GI symptoms.
No abdominal pain, nausea or vomiting. Chronically loose stool in the ileostomy controlled with antidiarrheals.
No esophageal varices noted on previous endoscopy February 2024.
No evidence of active bleeding noted this admission.
Continue PPI, can DC Xifaxan at discharge.
Continue current management for acute alcohol intoxication and DTs.
He complains of irritation around the ostomy site, wound care evaluation might help.
Patient wants to follow-up with his primary GI as outpatient. Will sign off, please call back if needed.
Original Note:
Today's Communication / Plan
-
based on labs - DF 3.9, MELD 3.0 8
no role for steroids
still with tremors but labs stable
cont diet
cont thiamine and folate
cont PPI
trend hbg
cont Xifaxan BID will review with Dr. Rios stopping and monitoring need to continued with stable labs - lactulose held with loose stool with ileostomy
ETOH withdrawal per medical team
pt remain oriented with mild tremors-- discussed follow up after discharge - he prefers follow up with known GI Dr. Hector Ludwig at [facility] and Dr. Rich following for hernia
Assessment / Plan
-
59 yo M history of cirrhosis likely related to alcohol, previous endoscopy without any evidence of varices on EGD 02/2024 , presenting with pancytopenia like picture after significant alcohol use and has withdrawal symptoms with tremulousness.
No evidence of GI bleeding.CT scan without any evidence of ascites. MELD 3.0-8 on admission. PT follows with Dr. Hector Ludwig from GI and Dr. Rich from [facility] with known abdominal hernia.
Recommendations:
-History of alcohol abuse, evidence of cirrhosis noted on imaging.
Currently in withdrawal with tremulousness
pancytopenia with EOTH abuse
mild lipas elevation
-abdominal and stomal hernia
other med problems:
Fox's thyroiditis
diverticulitis status post perforation status post ileostomy in 2019
anxiety
right upper lobe lung nodule
vitamin D deficiency
PLAN:
based on labs - DF 3.9, MELD 3.0 8
no role for steroids
still with tremors but labs stable
cont diet
cont thiamine and folate
cont PPI
trend hbg
cont Xifaxan BID will review with Dr. Rios stopping and monitoring need to continued with stable labs -- lactulose held with diarrhea with ileostomy
ETOH withdrawal per medical team
pt remain oriented with mild tremors-- discussed follow up after discharge - he prefers follow up with known GI Dr. Hector Ludwig at [facility] and Dr. Rich following for hernia
Subjective
Subjective
Date of Service: July 19, 2024
07/17 brown stool on regular diet
Objective
Data Reviewed
Laboratory Data:
Laboratory Results
07/19/24 07:39
07/19/24 07:39
Laboratory Results
PT 13.7 Sec (11.4-14.6) 07/18/24 10:47
INR 1.02 07/18/24 10:47
Phosphorus 1.9 mg/dl (2.5-4.5) L 07/19/24 07:39
Magnesium 1.3 mg/dl (1.6-2.3) L 07/19/24 07:39
Total Bilirubin 0.9 mg/dl (0.2-1.3) 07/19/24 07:39
AST 153 U/L (17-59) H 07/19/24 07:39
ALT 72 U/L (0-50) H 07/19/24 07:39
Alkaline Phosphatase 87 U/L (38-126) 07/19/24 07:39
Lipase 609 U/L (23-300) H 07/17/24 15:32
Vital Signs and I&O:
Vital Signs
Temp Pulse Resp BP Pulse Ox
98.4 F 98 18 141/85 94
07/19/24 07:00 07/19/24 07:00 07/19/24 07:00 07/19/24 07:00 07/19/24 07:00
I&O
07/18/24 07/19/24 07/20/24
06:59 06:59 06:59
Intake Total 1224 / 1224 1120 / 1120
Output Total 350 / 350
Balance 874 / 874 1120 / 1120
Physical Exam
Physical Exam
HEENT: Anicteric
Cardiology: Normal Sinus Rhythm
Pulmonary: Clear
GI: Soft, Non Distended and Non Tender
Extremities: Other (mild tremors )
Neuro: Non Focal
[2024-07-19 11:00] VITALS: BP 140/91
--- NOTE | 2024-07-19 11:10 | CM ---
Addendum entered by Lynnette Starkey 07/19/24 13:54:
Patient with Ileostomy, patient case manager spoke with [facility] and per Jose there are only two options for patient [facility] and [facility].
Original Note:
Chart reviewed and patient case manager met with patient and patient was asking for community resources, patient case manager provided patient with [facility] which was previously provided, skilled nursing information, and list of apartment complexes in area, patient was
assessed by [facility] and they are following with patient, patient di reach out to [facility] and is on waiting list.
Plan; Patient to follow up with [facility] for plan.
[2024-07-19] MEDS: LIDOCAINE 4% PATCH 1 PATCH TOPICAL (12:53)
[2024-07-19 15:00] VITALS: BP 126/84
--- NOTE | 2024-07-19 17:02 | W.PN.HOSP.TC ---
Today's Communication/Plan
-
continue phenobarb protocol
[facility]/CM following for inpatient rehab placement
Assessment / Plan
Assessment / Plan
Assessment:
Alcohol withdrawal
Alcohol use disorder
- continue MSAS protocol
- continue Phenobarbital protocol
- continue MV/Folate/Thiamine etc
Hypokalemia
- replacement, daily labs
Dermatitis secondary to irritation from poor ileostomy care
- Patient needs better ileostomy care
- consulted wound care
Epistaxis from right nostril in the setting of thrombocytopenia
- no active bleeding at present time.
Otorrhagia bilaterally etiology seems traumatic possibly from fall
- no active bleeding currently
- No confusion, he is lucid and following commands.
- CT head : no acute intracranial abnormality
Fall, gait dysfunction due to alcohol use.
- PT/OT - no needs
Acute on chronic thrombocytopenia secondary to alcohol/cirrhosis
- Platelets of 35 but no active bleeding
- PT/ INR normal
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
Hypomagnesemia, replace
Hyponatremia - monitor BMP
Chronic anemia due to anemia of chronic disease and chronic GI blood loss
- Hemoglobin stable actually better than before
- Fecal occult is heme positive with green stool
Alcoholic gastritis
- Lipase 600
- he denies abdominal pain
- continue PPI
Transaminitis secondary to alcohol use
- continue to monitor
History of Fox's thyroiditis/hypothyroidism
- continue levothyroxine
Diverticulitis status post perforation sepsis ileostomy in 2019
Anxiety
Right upper lobe lung nodule
Vitamin D deficiency
DVT ppx: SCDs
Code: Full
Anticipated Discharge: 24 - 48 hours
Subjective/Interval History
-
Date of Service: July 19, 2024
resting comfortably, no complaints
Objective Data
-
Labs:
Laboratory Results
07/19/24
07:39
WBC 2.4 L*
Hgb 10.3 L
Hct 31.0 L
Plt Count 35 L D
Sodium 132 L
Potassium 3.4 L
Chloride 96 L
Carbon Dioxide 27
BUN 5 L
Creatinine 0.7
Glucose 101 H
Calcium 7.9 L
Total Bilirubin 0.9
AST 153 H
ALT 72 H
Alkaline Phosphatase 87
Vital Signs:
Vital Signs
Temp Pulse Resp BP Pulse Ox
98.3 F 101 18 126/84 97
07/19/24 15:00 07/19/24 15:00 07/19/24 15:00 07/19/24 15:00 07/19/24 15:00
I&O
07/18/24 07/19/24 07/20/24
06:59 06:59 06:59
Intake Total 1224 / 1224 1120 / 1120
Output Total 350 / 350
Balance 874 / 874 1120 / 1120
Physical Exam
-
General: No Apparent Distress
HEENT: Normocephalic and Atraumatic
Respiratory: Negative Wheezes
Cardiac: Regular Rhythm and S1/S2
GI: Soft
Genito-urinary: No Costovertebral Tender
Neuro: AO x 3
Hematologic / Lymphatic: No Lymphadenopathy
Psych: Calm
Data Reviewed
-
Total Time Spent with Patient (in minutes): 41
Labs: Labs Reviewed by me
[2024-07-19] MEDS: KCL 40 MEQ PO (17:16)
[2024-07-19 19:45] VITALS: BP 139/76
[2024-07-19 23:05] VITALS: BP 141/73
[2024-07-20 03:28] VITALS: BP 149/73
[2024-07-20] MEDS: SYNTHROID 100 MCG PO (06:03)
[2024-07-20 07:00] VITALS: BP 140/90
[2024-07-20 08:08] LABS: Hematocrit 36.6 % (39.0-52.0); Hemoglobin 11.7 g/dL (13.0-18.0); INR 1.07; Mean Corpuscular Hgb 25.4 pg (27.0-31.0); Mean Corpuscular Volume 79.4 fL (80.0-94.0); PT 14.2 Sec (11.4-14.6); Platelet Count 56 10^3/uL (130-400); Red Blood Cell Count 4.61 10^6/uL (4.70-6.10)
[2024-07-20 08:47] LABS: Blood Urea Nitrogen 5 mg/dl (9-20); Calcium 8.8 mg/dl (8.4-10.2); Carbon Dioxide 29 mmol/L (22-30); Chloride 98 mmol/L (98-107); Estimated Creatinine Clearance 115 ml/min; Glucose 108 mg/dl (70-99); Magnesium 1.8 mg/dl (1.6-2.3); Phosphorus 2.2 mg/dl (2.5-4.5); Potassium 3.5 mmol/L (3.5-5.1); Sodium 136 mmol/L (135-145); eGFR > 60.00
[2024-07-20] MEDS: LIDOCAINE 4% PATCH 1 PATCH TOPICAL (08:49)
[2024-07-20] MEDS: LUMINAL 64.8 MG PO (08:50)
[2024-07-20] MEDS: XIFAXAN 550 MG PO (08:51)
[2024-07-20] MEDS: MAGNESIUM OXIDE 500 MG PO (08:51)
[2024-07-20] MEDS: NEUTRA-PHOS POWDER PACKET 250 MG PO ×2 (08:51→12:31)
[2024-07-20] MEDS: PROTONIX IV 40 MG IV (08:52)
[2024-07-20] MEDS: THIAMINE INJECTION 200 MG IV (08:52)
[2024-07-20] MEDS: NSS (PRESERVATIVE FREE) 10 ML IV (08:53)
--- NOTE | 2024-07-20 10:09 | W.PN.HOSP.TC ---
Today's Communication/Plan
-
dc to rehab facility ([facility]) today
Assessment / Plan
Assessment / Plan
Assessment:
Alcohol withdrawal
Alcohol use disorder
- continue MSAS protocol
- continue Phenobarbital protocol at discharge
- continue MV/Folate/Thiamine etc
Hypokalemia
- resolved
Dermatitis secondary to irritation from poor ileostomy care
- Patient needs better ileostomy care
- consulted wound care
Epistaxis from right nostril in the setting of thrombocytopenia
- no active bleeding at present time.
Otorrhagia bilaterally etiology seems traumatic possibly from fall
- no active bleeding currently
- No confusion, he is lucid and following commands.
- CT head : no acute intracranial abnormality
Fall, gait dysfunction due to alcohol use.
- PT/OT - no needs
Acute on chronic thrombocytopenia secondary to alcohol/cirrhosis
- Platelets of 56 but no active bleeding
- PT/ INR normal
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
Hypomagnesemia, replace
Hyponatremia - monitor BMP
Chronic anemia due to anemia of chronic disease and chronic GI blood loss
- Hemoglobin stable actually better than before
- Fecal occult is heme positive with green stool
Alcoholic gastritis
- Lipase 600
- he denies abdominal pain
- continue PPI
Transaminitis secondary to alcohol use
- continue to monitor
History of Fox's thyroiditis/hypothyroidism
- continue levothyroxine
Diverticulitis status post perforation sepsis ileostomy in 2019
Anxiety
Right upper lobe lung nodule
Vitamin D deficiency
DVT ppx: SCDs
Code: Full
More than 30 minutes spent in discharge including
Final examination of the patient
Summarizing hospital stay
Instructions for continuing care to all relevant caregivers
Preparation of discharge records, prescriptions, and referral forms
Total time spent (in minutes): 41
Anticipated Discharge: Today
Subjective/Interval History
-
Date of Service: July 20, 2024
feels well no complaints
Objective Data
-
Labs:
Laboratory Results
07/20/24
07:38
WBC 3.0 L
Hgb 11.7 L
Hct 36.6 L
Plt Count 56 L D
PT 14.2
INR 1.07
Sodium 136
Potassium 3.5
Chloride 98
Carbon Dioxide 29
BUN 5 L
Creatinine 0.7
Glucose 108 H
Calcium 8.8
Vital Signs:
Vital Signs
Temp Pulse Resp BP Pulse Ox
98.0 F 100 20 140/90 95
07/20/24 07:00 07/20/24 07:00 07/20/24 07:00 07/20/24 07:00 07/20/24 07:00
I&O
07/19/24 07/20/24 07/21/24
06:59 06:59 06:59
Intake Total 1120 / 1120 1670 / 1670
Balance 1120 / 1120 1670 / 1670
Physical Exam
-
General: No Apparent Distress
HEENT: Normocephalic and Atraumatic
Respiratory: Negative Wheezes
Cardiac: Regular Rhythm and S1/S2
GI: Soft and Ostomy
Genito-urinary: No Costovertebral Tender
Psych: Calm
Data Reviewed
-
Total Time Spent with Patient (in minutes): 42
Labs: Labs Reviewed by me
--- NOTE | 2024-07-20 10:14 | W.DS.TRANS ---
DC Summary - Apartment Maintenance Technician
-
Discharge Instructions:
Discharge Diagnosis/Procedures discharge to alcohol rehab facility. Alcohol use
disorder with alcohol withdrawal. Hyponatremia/
hypokalemia/hypomagnesemia
Diet Regular
Activity As tolerated
Instructions:
Stand-Alone Forms:
Changes to Home Medications: No
Discharge Medications:
DC Medications w/original date entered in [employer]
levothyroxine 100 mcg tablet 100 mcg PO DAILY Thyroid 07/01/23
cholecalciferol (vitamin D3) 50 mcg (2,000 unit) tablet 50 mcg PO DAILY Supplement #0 tabs 04/29/24
magnesium oxide 500 mg PO DAILY Electrolyte Repletion #30 tabs 04/29/24
pantoprazole 40 mg tablet,delayed release (Protonix) 40 mg PO DAILY #30 tabs 07/20/24
phenobarbital 32.4 mg tablet See Rx Instructions .Route .COMPLEX #18 tabs 07/20/24
thiamine HCl (vitamin B1) 100 mg tablet 100 mg PO DAILY #100 tabs 07/20/24
Home Medication Changes
Pending Results: No
Total time spent discharging patient (in min): 41
--- NOTE | 2024-07-20 10:23 | CM ---
Patient has been accepted at [facility] today, [facility] will pick patient up at 2:30pm.
Plan; Patient to transfer to [facility] today at 2:30pm.
No report required just a copy of patient's chart.
[2024-07-20 11:05] VITALS: BP 119/71
--- NOTE | 2024-07-20 12:30 | WOUNDNOTE ---
WON RN NOTE: Asked to see for excoriated skin from leaking ostomy. Patient known to service, last seen on 02/2024 for same leaking issue. Reviewed pictures from that admission and compared to then, skin has healed. Patient used own [employer] one
piece appliance and change it on own today. Patient is waiting for discharge no other needs or concerns at this time. Nurse Kely made aware.
== END 2024-07-20 14:27 | disposition home or self-care (01) | DRG 897 ==
LOC: 4 WEST ACU 20:54
PROVIDERS: Internal Medicine; Nurse Practitioner Adult Health; ADMITTING PHYSICIAN Hospitalist; ATTENDING PHYSICIAN Internal Medicine; CONSULT PHYSICIAN Internal Medicine Gastroenterology; EMERGENCY PHYSICIAN Student in an Organized Health Care Education/Training Program; FAMILY PHYSICIAN Student in an Organized Health Care Education/Training Program
DX: F10.139 Alcohol abuse with withdrawal, unspecified (principal); D61.818 Other pancytopenia; E87.1 Hypo-osmolality and hyponatremia; L30.9 Dermatitis, unspecified; D69.59 Other secondary thrombocytopenia; K70.30 Alcoholic cirrhosis of liver without ascites; D63.8 Anemia in other chronic diseases classified elsewhere; K29.20 Alcoholic gastritis without bleeding; F10.129 Alcohol abuse with intoxication, unspecified; E87.6 Hypokalemia; F41.9 Anxiety disorder, unspecified; E06.3 Autoimmune thyroiditis; E83.42 Hypomagnesemia; H92.23 Otorrhagia, bilateral; Y90.8 Blood alcohol level of 240 mg/100 ml or more; Z93.2 Ileostomy status
CPT/HCPCS: 70450; 74177; 80048; 80053; 82077; 83690; 83735; 84100; 85025; 85027; 85610; 96361; 96374; 96375; 97162; 97166; 99285; Q9967

== ENCOUNTER 2024-09-24 17:48 | Emergency (ER) | payer MEDICARE, SELFPAY ==
[2024-09-24 17:51] VITALS: BP 119/78
[2024-09-24 19:00] VITALS: BP 110/76
[2024-09-24 19:04] VITALS: BMI 33.5
[2024-09-24 20:00] VITALS: BP 139/87
--- NOTE | 2024-09-24 20:06 | ED.GENMED ---
History of Present Illness
General
Chief Complaint: Skin Problem
Source: patient
Exam Limitations: none
Time Seen by Provider: 09/24/24 20:05
Nursing documentation reviewed up to this point in time: agreed with
History of Present Illness
History of Present Illness:
The patient is a 59-year-old man with a past medical history of alcohol related cirrhosis who was encouraged to come to the emergency department after his doctor evaluated him today and found him to be extremely sleepy. The patient had been there
to have his skin cartwright checked. patient was fishing in August 5 days ago and suffered first and second-degree cartwright on the front of both of his legs from his ankles up to his knees bilaterally. The patient denies fevers and chills. On arrival to
the ED he keeps falling asleep. He reports that his cartwright seem better than they had several days ago and he has been putting an ointment on his legs. It is unclear if he had a tetanus shot. Patient reports he last drank alcohol 1 PM today. He
denies cigarettes and other drug use. He denies injury. He denies headache. His mother called me over the phone to check up on the patient and reports that the patient is on medication that might make him sleepy.
Past History
Past History
ED Past Medical History: Hypothyroidism and Other (Bowel obstruction, Cirrhosis of the liver, Alcohol abuse)
ED Past Surgical History: Other (Ileostomy due to infection located by sepsis, Hernia X 2)
Social History
Tobacco: Non-smoker
Alcohol: Daily
Drug: None
Personal:
Living: alone
Employment: Other
Family History
Family History: Other
Review of Systems
Review of Systems
Allergies reviewed?: Yes
Unable to obtain full review of systems at this time due to: other (Patient keeps falling asleep)
Other source history: family (Mother over the phone at [phone])
Constitutional: Reports fatigue
EENT: Reports no symptoms
Respiratory: Reports no symptoms
Cardiac: Reports no symptoms
ABD/GI: Reports no symptoms
: Reports no symptoms
Musculoskeletal: Reports no symptoms
Skin: Reports other
Neurological: Reports no symptoms
Endocrine: Reports no symptoms
Hematologic/Lymphatic: Reports no symptoms
Psychiatric: Reports no symptoms
Phy Exam
Physical Exam
Physical Exam:
Physical Exam
General: Patient is somnolent. Patient keeps falling asleep midsentence. Does not appear to be in any distress. Atraumatic appearing face and head
Neck: supple. no meningeal signs. normal psoterior pharynx
Heart: s1/s2 regular rate and rhythm,
Lungs: no acute respiratory distress. clear bilaterally
Abdomen: normal bowel sounds. not tender. no CVAT
Neuro: alert and orientedx3 when awake and then quickly falls asleep. Nonfocal neuroexam
Skin: First-degree and second-degree cartwright on anterior bilateral lower legs from just above the level of bilateral knees to ankles. Open blisters with dried exudate
Psychiatric: Sleepy, but cooperative when awake
Extremities: 1+ pitting edema bilateral lower extremities
Course
Orders/Labs/Results
Orders:
Orders
09/24/24 20:47
Electrocardiogram (*1) Urgent
Reason for Study: Fatigue / Weakness
EKG- Treatment ONCE
09/24/24 21:00
Add On- LAB Urgent
Tests Added?: TSH
09/24/24 21:19
Tetanus/Diphth/Acelpertussis [Adacel] 0.5 ml IM .ONCE ONE
09/24/24 21:55
Alcohol Urgent
Ammonia Urgent
Complete Blood Count/With Diff Urgent
Comprehensive Metabolic Panel Urgent
TSH Urgent
Comment: ADD ON
09/24/24 22:28
Urine Drug Abuse Screen Urgent
Date Specimen was Collected: 09/24/24
Time Specimen was Collected: 22:28
09/24/24 22:59
CT Head W/o Iv Contrast Urgent
Comment:
Reason For Exam: sleepy
09/25/24 01:01
Cephalexin Monohydrate [Keflex] 500 mg PO NOW STA
Abnormal Lab Results
09/24/24 09/24/24
21:55 22:28
WBC 4.6 L 10^3/uL
(4.8-10.8)
RBC 4.09 L 10^6/uL
(4.70-6.10)
Hgb 11.3 L g/dL
(13.0-18.0)
Hct 33.5 L %
(39.0-52.0)
RDW 18.3 H %
(11.5-14.5)
Absolute Lymphs (auto) 1.1 L 10^3/uL
(1.2-3.4)
Monocytes % 13.6 H %
(1.7-9.3)
Chloride 110 H mmol/L
(98-107)
Glucose 104 H mg/dl
(70-99)
Ammonia < 9 L umol/L
(9-30)
TSH 16.70 H uIU/ml
(0.47-4.68)
Ur Tricyclics Screen Positive H
(Negative)
09/24/24 21:55
09/24/24 21:55
Vital Signs
Initial and Last Documented VS:
Initial Vital Signs
Temp Pulse Resp BP Pulse Ox
97.6 F 89 16 119/78 100
09/24/24 17:51 09/24/24 17:51 09/24/24 17:51 09/24/24 17:51 09/24/24 17:51
Last Documented Vital Signs
Temp Pulse Resp BP Pulse Ox
97.6 F 90 15 142/92 98
09/24/24 17:51 09/25/24 01:04 09/25/24 01:04 09/25/24 01:04 09/25/24 01:41
MDM/Problems Addressed
Differential Diagnosis Includes:
Acute mental status change due to sepsis from skin cartwright, acute mental status change due to alcohol intoxication, acute mental status change due to metabolic abnormalities
MDM/Problems Addressed:
Patient presents with first and second-degree skin cartwright on anterior bilateral lower legs as well as acute mental status change
Chronic conditions affecting care:
Chronic alcohol use and cirrhosis
Acute Exacerbation and/or Progression of Chronic Illness:
Patient may have acute exacerbation of alcohol intoxication causing acute mental status change
*Radiology
Radiology exam reviewed: radiology read reviewed
*Pulse Oximetry
Patient hypoxic: no
*EKG
Interpreted by ED Provider?: Yes
Interpretation: normal
Comparison EKG: no comparison EKG present
Rate: normal
Rhythm: sinus
[place]: normal axis
Interval: normal interval
QRS Pattern: normal QRS
Ischemia: no ischemia
*Supervisor Mixing Interpretation
Rate: normal
Interpretation: normal
Rhythm: sinus
*Critical Care Note
Total Time (30-74mins, 75-104mins- exclusive of procedures): Not Applicable
Data Reviewed
Source: patient and family (Mother over the phone who reports that patient is sometimes sleepy from his medication)
Patient Management
Social determinants of health affecting care: Living situation and Strong social support
Escalation/DeEscalation of care consider admission/obs:
Patient watched for hours in the emergency department. While he was initially sleepy, he became fully arousable and no longer sleepy. He has been fully awake, alert and conversational now for hours. There is no sign of sepsis. He has not had a
fever. Patient has no tachycardia or tremor to suggest alcohol withdrawal. He is calm and cooperative.
Given patient has multiple areas of ruptured blisters, Keflex given to help prevent superinfection
ED Attending Note
-
Portions of this chart may have been created with voice recognition software.� Occasional wrong word or��sound alike� substitutions may have occurred due to the inherent limitations of voice recognition software.
Discharge Plan
Departure
Patient Disposition: Home (Routine Discharge)
Date of Disposition: 09/25/24
Time of Disposition: 01:01
Patient with high blood pressure during this ER visit?: No
Condition: Good
Covid-19: Not Applicable
Discharge Problem:
1st degree sunburn, Second degree sunburn
Instructions: Sunburn ED, Staying safe in the sun
Prescriptions:
New
silver sulfadiazine [Silvadene] 1 % cream
1 applic topical DAILY 10 Days Qty: 50 0RF
cephalexin 500 mg capsule
500 mg PO BID Qty: 10 0RF
No Action
levothyroxine 100 mcg Tablet
100 mcg PO DAILY
cholecalciferol (vitamin D3) 50 mcg (2,000 unit) Tablet
50 mcg PO DAILY Qty: 0 0RF
magnesium oxide 500 mg magnesium tablet
500 mg PO DAILY Qty: 30 0RF
phenobarbital 32.4 mg Tablet
See Rx Instructions .ROUTE .COMPLEX Qty: 18 0RF
Rx Instructions:
take 2 tabs TID x 2 days, then 1 tab TID x 2 days to stop
pantoprazole [Protonix] 40 mg tablet,delayed release (DR/EC)
40 mg PO DAILY Qty: 30 0RF
thiamine HCl (vitamin B1) 100 mg tablet
100 mg PO DAILY Qty: 100 0RF
Referrals:
Shay Strauss MD, Resident [Family Provider, General]
Activity Restrictions/Additional Instructions:
Please return for any worsening skin redness, fever, or chills. Please follow-up with your primary care doctor within 1 week
Interventions
Interventions:
*Risk Screen - Suicide Last Done: 09/24/24 19:04
*General Assessment Last Done: 09/24/24 19:04
*Neglect/Abuse Screening Last Done: 09/24/24 19:04
*ED- Fall Risk Assessment Last Done: 09/24/24 19:04
*ED COVID-19 Vaccine History Last Done: 09/24/24 19:04
*Nursing Disposition Last Done: 09/25/24 01:41
ED-Skin Assessment Last Done: 09/24/24 19:04
Discharge Date and Time
Discharge Date/Time: 09/25/24 01:41
Print Language: MONGOLIAN
[2024-09-24 21:00] VITALS: BP 111/95
[2024-09-24] MEDS: ADACEL 0.5 ML IM (21:59)
[2024-09-24 22:00] VITALS: BP 140/94
[2024-09-24 22:12] LABS: % Basophils 0.9 % (0-2); % Eosinophils 5.3 % (0-6); % Immature Granulocytes 0.4 % (0-0.5); % Lymphocytes 23.5 % (20.5-51.1); % Monocytes 13.6 % (1.7-9.3); % Neutrophils 56.3 % (42.2-75.2); Absolute Eosinophils 0.2 10^3/uL (0-0.7); Absolute Lymphocytes 1.1 10^3/uL (1.2-3.4); Absolute Monocytes 0.6 10^3/uL (0.1-0.6); Absolute Neutrophils 2.6 10^3/uL (1.4-6.5); Hematocrit 33.5 % (39.0-52.0); Hemoglobin 11.3 g/dL (13.0-18.0); Mean Corp Hgb Conc. 33.7 g/dL (33.0-37.0); Mean Corpuscular Hgb 27.6 pg (27.0-31.0); Mean Corpuscular Volume 81.9 fL (80.0-94.0); Mean Platelet Volume 9.5 fL (7.4-10.4); Nucleated Red Blood Cells % 0 % (-); Platelet Count 138 10^3/uL (130-400); Red Blood Cell Count 4.09 10^6/uL (4.70-6.10); Red Cell Dist. Width 18.3 % (11.5-14.5); White Blood Cell Count 4.6 10^3/uL (4.8-10.8)
[2024-09-24 22:24] LABS: ALT (SGPT) 26 U/L (0-50); AST (SGOT) 30 U/L (17-59); Alkaline Phosphatase 43 U/L (38-126); Blood Urea Nitrogen 15 mg/dl (9-20); Carbon Dioxide 24 mmol/L (22-30); Chloride 110 mmol/L (98-107); Estimated Creatinine Clearance 107 ml/min; Glucose 104 mg/dl (70-99); Potassium 3.9 mmol/L (3.5-5.1); Sodium 139 mmol/L (135-145); Total Bilirubin 0.6 mg/dl (0.2-1.3); eGFR > 60.00
[2024-09-24 22:32] LABS: Ammonia < 9 umol/L (9-30)
[2024-09-24 22:37] LABS: Alcohol None Detected
[2024-09-24 22:45] LABS: Amphetamines Negative (Negative); Barbiturates Negative (Negative); Benzodiazepines Negative (Negative); Buprenorphine Negative (Negative); Cocaine Negative (Negative); Marijuana Negative (Negative); Methadone Negative (Negative); Methamphetamines Negative (Negative); Opiates Negative (Negative); Phencyclidine Negative (Negative); Tricyclic Antidepressants Positive (Negative)
[2024-09-24 23:00] VITALS: BP 127/81
[2024-09-25 01:04] VITALS: BP 142/92
[2024-09-25] MEDS: KEFLEX 500 MG PO (01:39)
== END 2024-09-25 01:41 | disposition home or self-care (01) ==
LOC: EMR 17:48
PROVIDERS: EMERGENCY PHYSICIAN Emergency Medicine; FAMILY PHYSICIAN Student in an Organized Health Care Education/Training Program
DX: L55.1 Sunburn of second degree (principal); Z23 Encounter for immunization
CPT/HCPCS: 99285; 90471; 70450; 80053; 80306; 82077; 82140; 84443; 85025; 90715; 93005